=== PATIENT | male | born 1975 | race Caucasian/White ===

== ENCOUNTER 2017-09-20 10:03 | Inpatient (IN) | payer OTHER ==
[2017-09-20 11:00] VITALS: BMI 28.8
--- NOTE | 2017-09-20 13:46 | HP ---
COWS - Scale Resting Pulse: 1= [place] 81-100 Sweatin=Flushed/Facial Moisture Restless Observation: 1= Difficult to Sit Still Pupil Size: 0= Normal to Room Light Bone or Joint Aches: 2= Severe Diffuse Aches Runny Nose/ Eye Tearin= Runny Nose/Eyes GI Upset > 30mins: 2= Nausea/Diarrhea Tremor Observation: 2= Slight Tremor Visible Yawning Observation: 2= >3x During Session Anxiety or Irritability: 2=Irritable/Anxious Goose Flesh Skin: 0=Smooth Skin COWS Score: 16 CIWA Score - CIWA Score Nausea/Vomitin-No Nausea/No Vomiting Muscle Tremors: 4-Moderate,w/Arms Extend Anxiety: 4-Mod. Anxious/Guarded Agitation: 4-Moderately Restless Paroxysmal Sweats: 3 Orientation: 0-Oriented Tacttile Disturbances: 0-None Auditory Disturbances: 0-None Visual Disturbances: 0-None Headache: 0-None Present CIWA-Ar Total Score: 15 Admission ROS S - HPI Chief Complaint: I am here for detox. Allergies/Adverse Reactions: Allergies Allergy/AdvReac Type Severity Reaction Status Date / Time No Known Drug Allergies Allergy Verified 09/20/17 13:28 Fish Allergy Severe Hives Uncoded 09/20/17 13:28 History of Present Illness: pt is a 42yr old male with a history of alcohol and heroin dependence seeking detox for treatment. Exam Limitations: No Limitations - Ebola screening Have you traveled outside of the country in the last 21 days: No Have you had contact with anyone from an Ebola affected area: No Have you been sick,other than usual withdrawal symptoms: No Do you have a fever: No - Review of Systems Constitutional: Chills, Diaphoresis, Loss of Appetite, Night Sweats, Unintentional Wgt. Loss EENT: reports: Tearing, Nose Congestion Respiratory: reports: No Symptoms reported Cardiac: reports: No Symptoms Reported GI: reports: Poor Appetite, Poor Fluid Intake : reports: No Symptoms Reported Musculoskeletal: reports: Back Pain, Joint Pain Integumentary: reports: Flushing, Sweating Neuro: reports: Headache, Tingling, Tremors Endocrine: reports: Excessive Sweating, Flushing, Intolerance to Cold, Intolerance to Heat Hematology: reports: No Symptoms Reported Psychiatric: reports: Judgement Intact, Mood/Affect Appropiate, Orientated x3, Agitated, Anxious Other Systems: Reviewed and Negative Patient History - Patient Medical History Hx Anemia: No Hx Asthma: No Hx Chronic Obstructive Pulmonary Disease (COPD): No Hx Cancer: No Hx Cardiac Disorders: No Hx Congestive Heart Failure: No Hx Hypertension: No Hx Hypercholesterolemia: No Hx Pacemaker: No HX Cerebrovascular Accident: No Hx Seizures: No Hx Diabetes: No Hx Gastrointestinal Disorders: No Hx Liver Disease: No Hx Genitourinary Disorders: No Hx Sexually Transmitted Disorders: No Hx Renal Disease (ESRD): No Hx Thyroid Disease: No Hx Human Immunodeficiency Virus (HIV): No (negative) Hx Hepatitis C: Yes Hx Depression: No Hx Suicide Attempt: No (denies) Hx Bipolar Disorder: No Hx Schizophrenia: No - Patient Surgical History Past Surgical History: No Hx Neurologic Surgery: No Hx Cataract Extraction: No Hx Cardiac Surgery: No Hx Lung Surgery: No Hx Breast Surgery: No Hx Breast Biopsy: No Hx Abdominal Surgery: Yes (LT INGUINAL HERNIA) Hx Appendectomy: No Hx Cholecystectomy: No Hx Genitourinary Surgery: No Hx Section: No Hx Orthopedic Surgery: No Anesthesia Reaction: No - PPD History Previous Implant?: Yes Documented Results: Positive w/o proof PPD to be Administered?: No - Reproductive History Patient is a Female of Child Bearing Age (11 -55 yrs old): No - Smoking Cessation Smoking history: Current every day smoker Have you smoked in the past 12 months: Yes Aproximately how many cigarettes per day: 20 Cigars Per Day: 0 Hx Chewing Tobacco Use: No Initiated information on smoking cessation: Yes 'Breaking Loose' booklet given: 09/20/17 - Substance & Tx. History Hx Alcohol Use: Yes Hx Substance Use: Yes Substance Use Type: Alcohol, Heroin Hx Substance Use Treatment: Yes (last detox [facility]) - Substances Abused Heroin Route: Injection Frequency: Daily Amount used: 5 bags Age of first use: 27 Date of Last Use: 09/20/17 Alcohol-vodka/beer Route: Oral Frequency: Daily Amount used: 1 1/2 pts./5-6 (18 oz.) Age of first use: 16 Date of Last Use: 09/19/17 Family Disease History - Family Disease History Family Disease History: Diabetes: Grandparent, Father Admission Physical Exam [facility] - Vital Signs Vital Signs: Vital Signs - 24 hr 09/20/17 10:58 Temperature 96.8 F L Pulse Rate 84 Respiratory 20 Rate Blood Pressure 131/83 - Physical General Appearance: Yes: Appropriately Dressed, Moderate Distress, Tremorous, Irritable, Sweating, Anxious HEENTM: Yes: Normal Voice, Nasal Congestion, Rhinorrhea Respiratory: Yes: Lungs Clear, Normal Breath Sounds, No Respiratory Distress Neck: Yes: No masses,lesions,Nodules Breast: Yes: Within Normal Limits Cardiology: Yes: Regular Rhythm, Regular Rate, S1, S2 Abdominal: Yes: Normal Bowel Sounds, Non Tender, Soft Genitourinary: Yes: Within Normal Limits Back: Yes: Normal Inspection Musculoskeletal: Yes: full range of Motion, Back pain Extremities: Yes: Normal Capillary Refill, Normal Inspection, Non-Tender, Tremors Neurological: Yes: Fully Oriented, Alert, Normal Response Integumentary: Yes: Normal Color, Track Alcantar Lymphatic: Yes: Within Normal Limits - Diagnostic (1) Cocaine dependence Current Visit: Yes Status: Chronic Qualifiers: Substance use status: uncomplicated Qualified Code(s): F14.20 - Cocaine dependence, uncomplicated; F14.20 - Cocaine dependence, uncomplicated; F14.20 - Cocaine dependence, uncomplicated (2) Hepatitis C Current Visit: Yes Status: Chronic Qualifiers: Viral hepatitis chronicity: chronic Hepatic coma status: without hepatic coma Qualified Code(s): B18.2 - Chronic viral hepatitis C; B18.2 - Chronic viral hepatitis C; B18.2 - Chronic viral hepatitis C; B18.2 - Chronic viral hepatitis C (3) Nicotine dependence Current Visit: Yes Status: Chronic Qualifiers: Nicotine product type: cigarettes Substance use status: uncomplicated Qualified Code(s): F17.210 - Nicotine dependence, cigarettes, uncomplicated; F17.210 - Nicotine dependence, cigarettes, uncomplicated (4) Alcohol dependence with uncomplicated withdrawal Current Visit: Yes Status: Chronic (5) Opioid dependence with withdrawal Current Visit: Yes Status: Chronic Cleared for Admission S - Detox or Rehab [facility] Level of Care: Medically Managed Detox Regimen/Protocol: Methadone/Librium S Breath Alcohol Content Breath Alcohol Content: 0 Urine Drug Screen - Results Drug Screen Negative: No Urine Drug Screen Results: BATOOL-Cocaine, OPI-Opiates, BZO-Benzodiazepines
[2017-09-20] MEDS ORDERED: MAG HYDROX/AL HYDROX/SIMETH 30 ML UNIT-DOSE CUP PO PRN (13:50)
[2017-09-20] MEDS ORDERED: MAGNESIUM CITRATE 300 ML BOTTLE PO PRN (13:50)
[2017-09-20] MEDS ORDERED: P-EPHED 60MG/TRIPROLIDI 2.5MG TABLET PO PRN (13:50)
[2017-09-20] MEDS ORDERED: MENTHOL/PHENOL 1 EACH UD MM PRN (13:50)
[2017-09-20] MEDS ORDERED: guaiFENesin/D-METHORPHAN HB 10 ML UNIT-DOSE CUPS PO PRN (13:50)
[2017-09-20] MEDS ORDERED: NICOTINE POLACRILEX 4 MG GUM BUC PRN (13:50)
[2017-09-20] MEDS ORDERED: MAGNESIUM HYDROX 2400MG/30ML ORAL SUSPENSION 30 ML CUP PO PRN (13:50)
[2017-09-20] MEDS ORDERED: chlordiazePOXIDE HCL 25 MG CAPSULE PO ONE (14:10)
[2017-09-20] MEDS ORDERED: METHADONE HCL 10 MG TABLET (FOR DETOX USE ONLY) PO ONE ×2 (14:11→23:00)
[2017-09-20] MEDS: chlordiazePOXIDE HCL 25 MG CAPSULE PO SCH ×2 (16:55→22:16)
--- NOTE | 2017-09-20 17:25 | EKG ---
Test Reason : Blood Pressure : / mmHG Vent. Rate : 074 BPM Atrial Rate : 074 BPM P-R Int : 152 ms QRS Dur : 090 ms QT Int : 394 ms P-R-T Axes : 045 073 035 degrees QTc Int : 437 ms NORMAL SINUS RHYTHM NORMAL ECG WHEN COMPARED WITH ECG OF 07-MAY-2015 01:00, NO SIGNIFICANT CHANGE WAS FOUND Confirmed by ROMINA FLORES MD ([id number]) on 09/20/2017 5:24:52 PM Referred By: Confirmed By:ROMINA FLORES MD
[2017-09-20] MEDS: chlordiazePOXIDE HCL 25 MG CAPSULE PO PRN (19:34)
[2017-09-20] MEDS: THIAMINE HCL 100 MG TABLET (FP) PO SCH (22:15)
[2017-09-21] MEDS: chlordiazePOXIDE HCL 25 MG CAPSULE PO PRN ×2 (02:14→15:48)
[2017-09-21] MEDS: chlordiazePOXIDE HCL 25 MG CAPSULE PO SCH ×4 (05:21→22:15)
--- NOTE | 2017-09-21 08:35 | PN ---
[facility] CIWA - CIWA Score Nausea/Vomitin-Cont. Nausea/Vomiting Muscle Tremors: 4-Moderate,w/Arms Extend Anxiety: 4-Mod. Anxious/Guarded Agitation: 4-Moderately Restless Paroxysmal Sweats: 3 Orientation: 0-Oriented Tacttile Disturbances: 0-None Auditory Disturbances: 0-None Visual Disturbances: 0-None Headache: 0-None Present CIWA-Ar Total Score: 22 S COWS - Scale Resting Pulse: 1= ID 81-100 Sweatin= Chills/Flushing Restless Observation: 1= Difficult to Sit Still Pupil Size: 1= Pupils >than Normal Bone or Joint Aches: 1= Mild Discomfort Runny Nose/ Eye Tearin= Nasal Congestion GI Upset > 30mins: 2= Nausea/Diarrhea Tremor Observation of Outstretched Hands: 0= None Yawning Observation: 1= 1-2x During Session Anxiety or Irritability: 2=Irritable/Anxious Goose Flesh Skin: 3=Piloerection COWS Score: 14 [facility] Progress Note (SOAP) Subjective: nausea, sweats, interrupted sleep ,a nxiety, trmeors, requesting ensure because of recent 18 pound wt loss Objective: 09/21/17 08:34 Vital Signs - 24 hr 09/20/17 09/20/17 09/20/17 10:58 15:03 17:38 Temperature 96.8 F L 98.2 F 96.5 F L Pulse Rate 84 84 87 Respiratory 20 18 18 Rate Blood Pressure 131/83 111/63 130/66 09/20/17 09/21/17 09/21/17 22:19 00:36 03:39 Temperature 97.1 F L Pulse Rate 91 H Respiratory 18 18 18 Rate Blood Pressure 120/80 09/21/17 06:12 Temperature 96.1 F L Pulse Rate 66 Respiratory 16 Rate Blood Pressure 146/95 labs still pending Assessment: 09/21/17 08:35 withdrawawl sx. recent wt loss Plan: cont detox, prn medications, ensure , fluids, symptomatic relief, encourage ambualtion
[2017-09-21 09:59] LABS: MCH 30.1 pg (25.7-33.7); MCHC 34.2 g/dl (32.0-35.9); MEAN PLT VOLUME 9.8 fl (7.5-11.1); PLATELET COUNT 406 K/MM3 (134-434); WHITE BLOOD COUNT 8.9 K/mm3 (4.0-10.0)
[2017-09-21] MEDS ORDERED: METHADONE HCL 10 MG TABLET (FOR DETOX USE ONLY) PO SCH (10:00)
[2017-09-21 10:06] LABS: ALBUMIN 3.6 g/dl (3.4-5.0); ANION GAP 3 (8-16); CALCIUM 8.4 mg/dL (8.5-10.1); CO2 33 mmol/L (21-32); GLUCOSE,RANDOM 91 mg/dL (74-106); SGOT/AST 29 U/L (15-37); SGPT/ALT 44 U/L (12-78)
[2017-09-21 10:08] LABS: ALK PHOS 74 U/L (45-117); BILIRUBIN,TOTAL 0.6 mg/dL (0.2-1.0); CREATININE 0.8 mg/dL (0.7-1.3); TOT PROT 7.1 g/dl (6.4-8.2)
[2017-09-21] MEDS: PRENATAL VITAMINS W/ FOLIC ACID TABLET (FP) PO SCH (10:41)
[2017-09-21] MEDS: IBUPROFEN 400 MG TABLET (FP) PO PRN (10:44)
[2017-09-21] MEDS: NICOTINE 21 MG/24 HOURS TOPICAL PATCH TD SCH (10:45)
[2017-09-21 11:28] LABS: HIV 1 & 2 AB NEGATIVE; HIV 1 AGp24 NEGATIVE
[2017-09-21] MEDS: THIAMINE HCL 100 MG TABLET (FP) PO SCH (22:15)
[2017-09-21] MEDS: diphenhydrAMINE HCL 50 MG CAPSULE PO PRN (22:16)
[2017-09-22] MEDS: chlordiazePOXIDE HCL 25 MG CAPSULE PO PRN ×2 (00:42→14:25)
[2017-09-22] MEDS: TRIMETHOBENZAMIDE HCL 200MG/2ML INJ IM PRN ×2 (03:48→15:07)
[2017-09-22] MEDS: hydrOXYzine PAMOATE 50 MG CAPSULE (FP) PO PRN (03:52)
[2017-09-22] MEDS: chlordiazePOXIDE HCL 25 MG CAPSULE PO SCH ×2 (05:59→10:27)
[2017-09-22] MEDS: LOPERAMIDE HCL 2 MG CAPSULE PO PRN (07:21)
[2017-09-22] MEDS: PRENATAL VITAMINS W/ FOLIC ACID TABLET (FP) PO SCH (10:27)
[2017-09-22] MEDS: NICOTINE 21 MG/24 HOURS TOPICAL PATCH TD SCH (10:27)
[2017-09-22] MEDS: METHADONE HCL 5 MG TABLET (FOR DETOX USE ONLY) PO SCH (10:27)
--- NOTE | 2017-09-22 13:11 | PN ---
[facility] CIWA - CIWA Score Nausea/Vomitin Muscle Tremors: 3 Anxiety: 4-Mod. Anxious/Guarded Agitation: 1-Slight > Activity Paroxysmal Sweats: 3 Orientation: 0-Oriented Tacttile Disturbances: 2-Mild Itch/Numbness/Burn Auditory Disturbances: 0-None Visual Disturbances: 2-Mild Sensitivity Headache: 0-None Present CIWA-Ar Total Score: 21 S COWS - Scale Resting Pulse: 1= [place] 81-100 Sweatin= Chills/Flushing Restless Observation: 0= Sits Still Pupil Size: 0= Normal to Room Light Bone or Joint Aches: 2= Severe Diffuse Aches Runny Nose/ Eye Tearin= Runny Nose/Eyes GI Upset > 30mins: 3= Vomiting/Diarrhea Tremor Observation of Outstretched Hands: 2= Slight Tremor Visible Yawning Observation: 1= 1-2x During Session Anxiety or Irritability: 2=Irritable/Anxious Goose Flesh Skin: 3=Piloerection COWS Score: 17 S Progress Note (SOAP) Subjective: Anxious, Tremors, Sweating, Diarrhea, Stomach cramping, Vomiting. Objective: PT. A & O X 3. NO ACUTE DISTRESS. 09/22/17 13:07 Vital Signs Temperature 96.1 F L 09/22/17 06:18 Pulse Rate 81 09/22/17 07:49 Respiratory Rate 18 09/22/17 06:18 Blood Pressure 130/82 09/22/17 07:49 O2 Sat by Pulse Oximetry (%) Laboratory Tests 09/21/17 09/21/17 09/21/17 06:00 06:00 06:00 WBC 8.9 RBC 5.03 Hgb 15.2 Hct 44.3 MCV 88.0 MCH 30.1 MCHC 34.2 RDW 14.0 Plt Count 406 D MPV 9.8 D Sodium 139 Potassium 4.7 Chloride 103 Carbon Dioxide 33 H Anion Gap 3 L BUN 11 D Creatinine 0.8 Creat Clearance w eGFR > 60 Random Glucose 91 D Calcium 8.4 L Total Bilirubin 0.6 D AST 29 D ALT 44 D Alkaline Phosphatase 74 Total Protein 7.1 Albumin 3.6 RPR Titer HIV 1&2 Antibody Screen Negative HIV P24 Antigen Negative 09/21/17 06:00 WBC RBC Hgb Hct MCV MCH MCHC RDW Plt Count MPV Sodium Potassium Chloride Carbon Dioxide Anion Gap BUN Creatinine Creat Clearance w eGFR Random Glucose Calcium Total Bilirubin AST ALT Alkaline Phosphatase Total Protein Albumin RPR Titer Nonreactive HIV 1&2 Antibody Screen HIV P24 Antigen LABS NOTED. Assessment: 09/22/17 13:10 WITHDRAWAL SYMPTOMS. Plan: CONTINUED DETOX. PRN TIGAN IM FOR NAUSEA / VOMITING. PRN IMMODIUM FOR DIARRHEA. INCREASE DAILY PO FLUID INTAKE.
[2017-09-22] MEDS: IBUPROFEN 400 MG TABLET (FP) PO PRN (14:26)
[2017-09-22] MEDS ORDERED: cloNIDine HCL 0.1 MG TABLET PO ONE (15:30)
[2017-09-22] MEDS: chlordiazePOXIDE 5 MG CAPSULE PO SCH ×2 (17:56→22:41)
[2017-09-22] MEDS: THIAMINE HCL 100 MG TABLET (FP) PO SCH (22:41)
[2017-09-23] MEDS: IBUPROFEN 400 MG TABLET (FP) PO PRN (00:39)
[2017-09-23] MEDS: chlordiazePOXIDE 5 MG CAPSULE PO SCH ×2 (06:05→10:31)
[2017-09-23] MEDS: METHADONE HCL 5 MG TABLET (FOR DETOX USE ONLY) PO SCH (10:31)
[2017-09-23] MEDS: NICOTINE 21 MG/24 HOURS TOPICAL PATCH TD SCH (10:31)
[2017-09-23] MEDS: PRENATAL VITAMINS W/ FOLIC ACID TABLET (FP) PO SCH (10:31)
[2017-09-23] MEDS: ACETAMINOPHEN 325 MG TABLET (FP) PO PRN (10:33)
[2017-09-23] MEDS: chlordiazePOXIDE HCL 10 MG CAPSULE PO SCH ×2 (17:18→22:21)
--- NOTE | 2017-09-23 17:22 | PN ---
[facility] Progress Note (SOAP) Subjective: Nausea, diarrhea, body ache, tremor, interrupted sleep Objective: 09/23/17 17:21 Last Vital Signs Temp Pulse Resp BP Pulse Ox 97.9 F 85 18 111/76 09/23/17 13:00 09/23/17 13:00 09/23/17 13:00 09/23/17 13:00 Laboratory Tests 09/21/17 09/21/17 09/21/17 06:00 06:00 06:00 WBC 8.9 RBC 5.03 Hgb 15.2 Hct 44.3 MCV 88.0 MCH 30.1 MCHC 34.2 RDW 14.0 Plt Count 406 D MPV 9.8 D Sodium 139 Potassium 4.7 Chloride 103 Carbon Dioxide 33 H Anion Gap 3 L BUN 11 D Creatinine 0.8 Creat Clearance w eGFR > 60 Random Glucose 91 D Calcium 8.4 L Total Bilirubin 0.6 D AST 29 D ALT 44 D Alkaline Phosphatase 74 Total Protein 7.1 Albumin 3.6 RPR Titer HIV 1&2 Antibody Screen Negative HIV P24 Antigen Negative 09/21/17 06:00 WBC RBC Hgb Hct MCV MCH MCHC RDW Plt Count MPV Sodium Potassium Chloride Carbon Dioxide Anion Gap BUN Creatinine Creat Clearance w eGFR Random Glucose Calcium Total Bilirubin AST ALT Alkaline Phosphatase Total Protein Albumin RPR Titer Nonreactive HIV 1&2 Antibody Screen HIV P24 Antigen Labs noted Assessment: 09/23/17 17:21 Withdrawal symptoms Plan: Continue detox
[2017-09-23 17:57] LABS: URINE APPEARANCE SLCLOUDY; URINE BILIRUBIN NEGATIVE (NEGATIVE); URINE BLOOD NEGATIVE (NEGATIVE); URINE COLOR YELLOW; URINE GLUCOSE (UA) NEGATIVE (NEGATIVE); URINE KETONE NEGATIVE (NEGATIVE); URINE NITRITE NEGATIVE (NEGATIVE); URINE PROTEIN NEGATIVE (NEGATIVE); URINE UROBILINOGEN NEGATIVE mg/dL (0.2-1.0)
[2017-09-23 21:19] LABS: URINE LEUK ESTERASE Negative (NEGATIVE)
[2017-09-23] MEDS: hydrOXYzine PAMOATE 50 MG CAPSULE (FP) PO PRN (21:20)
[2017-09-23] MEDS: THIAMINE HCL 100 MG TABLET (FP) PO SCH (22:21)
[2017-09-24] MEDS: hydrOXYzine PAMOATE 50 MG CAPSULE (FP) PO PRN ×2 (02:56→20:14)
[2017-09-24] MEDS: chlordiazePOXIDE HCL 10 MG CAPSULE PO SCH ×2 (05:18→10:30)
[2017-09-24] MEDS: ACETAMINOPHEN 325 MG TABLET (FP) PO PRN (08:32)
[2017-09-24] MEDS: LOPERAMIDE HCL 2 MG CAPSULE PO PRN (08:32)
[2017-09-24] MEDS ORDERED: METHADONE HCL 10 MG TABLET (FOR DETOX USE ONLY) PO SCH (10:00)
[2017-09-24] MEDS: NICOTINE 21 MG/24 HOURS TOPICAL PATCH TD SCH (10:30)
[2017-09-24] MEDS: PRENATAL VITAMINS W/ FOLIC ACID TABLET (FP) PO SCH (10:30)
--- NOTE | 2017-09-24 10:42 | PN ---
[facility] Progress Note (SOAP) Subjective: ANXIETY,DIARRHEA,STOMACH CRAMPS, FATIGUE. Objective: 09/24/17 10:41 Vital Signs Temperature 96.1 F L 09/24/17 09:30 Pulse Rate 95 H 09/24/17 09:30 Respiratory Rate 18 09/24/17 09:30 Blood Pressure 144/90 09/24/17 09:30 O2 Sat by Pulse Oximetry (%) Laboratory Last Values WBC 8.9 K/mm3 (4.0-10.0) 09/21/17 06:00 RBC 5.03 M/mm3 (4.00-5.60) 09/21/17 06:00 Hgb 15.2 GM/dL (11.7-16.9) 09/21/17 06:00 Hct 44.3 % (35.4-49) 09/21/17 06:00 MCV 88.0 fl (80-96) 09/21/17 06:00 MCH 30.1 pg (25.7-33.7) 09/21/17 06:00 MCHC 34.2 g/dl (32.0-35.9) 09/21/17 06:00 RDW 14.0 % (11.9-15.9) 09/21/17 06:00 Plt Count 406 K/MM3 (134-434) D 09/21/17 06:00 MPV 9.8 fl (7.5-11.1) D 09/21/17 06:00 Sodium 139 mmol/L (136-145) 09/21/17 06:00 Potassium 4.7 mmol/L (3.5-5.1) 09/21/17 06:00 Chloride 103 mmol/L (98-107) 09/21/17 06:00 Carbon Dioxide 33 mmol/L (21-32) H 09/21/17 06:00 Anion Gap 3 (8-16) L 09/21/17 06:00 BUN 11 mg/dL (7-18) D 09/21/17 06:00 Creatinine 0.8 mg/dL (0.7-1.3) 09/21/17 06:00 Creat Clearance w eGFR > 60 (>60) 09/21/17 06:00 Random Glucose 91 mg/dL (74-106) D 09/21/17 06:00 Calcium 8.4 mg/dL (8.5-10.1) L 09/21/17 06:00 Total Bilirubin 0.6 mg/dL (0.2-1.0) D 09/21/17 06:00 AST 29 U/L (15-37) D 09/21/17 06:00 ALT 44 U/L (12-78) D 09/21/17 06:00 Alkaline Phosphatase 74 U/L (45-117) 09/21/17 06:00 Total Protein 7.1 g/dl (6.4-8.2) 09/21/17 06:00 Albumin 3.6 g/dl (3.4-5.0) 09/21/17 06:00 Urine Color Yellow 09/23/17 11:38 Urine Appearance Slcloudy 09/23/17 11:38 Urine pH 5.0 (5.0-8.0) 09/23/17 11:38 Ur Specific [place] 1.015 (1.005-1.025) 09/23/17 11:38 Urine Protein Negative (NEGATIVE) 09/23/17 11:38 Urine Glucose (UA) Negative (NEGATIVE) 09/23/17 11:38 Urine Ketones Negative (NEGATIVE) 09/23/17 11:38 Urine Blood Negative (NEGATIVE) 09/23/17 11:38 Urine Nitrite Negative (NEGATIVE) 09/23/17 11:38 Urine Bilirubin Negative (NEGATIVE) 09/23/17 11:38 Urine Urobilinogen Negative mg/dL (0.2-1.0) 09/23/17 11:38 Ur Leukocyte Esterase Negative (NEGATIVE) 09/23/17 11:38 RPR Titer Nonreactive (NONREACTIVE) 09/21/17 06:00 HIV 1&2 Antibody Screen Negative 09/21/17 06:00 HIV P24 Antigen Negative 09/21/17 06:00 Assessment: 09/24/17 10:41 WITHDRAWAL SX Plan: CONTINUE DETOX IMODIUM PRN
[2017-09-24] MEDS: IBUPROFEN 400 MG TABLET (FP) PO PRN (20:14)
[2017-09-24] MEDS: THIAMINE HCL 100 MG TABLET (FP) PO SCH (22:17)
[2017-09-24] MEDS: diphenhydrAMINE HCL 50 MG CAPSULE PO PRN (22:17)
[2017-09-25] MEDS ORDERED: METHADONE HCL 5 MG TABLET (FOR DETOX USE ONLY) PO SCH (06:00)
[2017-09-25 06:37] VITALS: BP 145/78; PULSE 70; TEMP 96.1
--- NOTE | 2017-09-25 12:24 | DS ---
[facility] Detox Discharge Summary Admission Date: 09/20/17 Discharge Date: 09/25/17 - History Present History: Alcohol Dependence, Cocaine Dependence, Opioid Dependence Additional Comments: DETOX COMPLETED. ALERT O X 3. NAD. PT TO FOLLOW UP WITH PCP AT [facility] NEEDED. Pertinent Past History: HEP C - Physical Exam Results Vital Signs: Vital Signs Temperature 96.1 F L 09/25/17 06:37 Pulse Rate 70 09/25/17 06:37 Respiratory Rate 18 09/25/17 06:37 Blood Pressure 145/78 09/25/17 06:37 O2 Sat by Pulse Oximetry (%) Pertinent Admission Physical Exam Findings: WITHDRAWAL SX Laboratory Last Values WBC 8.9 K/mm3 (4.0-10.0) 09/21/17 06:00 RBC 5.03 M/mm3 (4.00-5.60) 09/21/17 06:00 Hgb 15.2 GM/dL (11.7-16.9) 09/21/17 06:00 Hct 44.3 % (35.4-49) 09/21/17 06:00 MCV 88.0 fl (80-96) 09/21/17 06:00 MCH 30.1 pg (25.7-33.7) 09/21/17 06:00 MCHC 34.2 g/dl (32.0-35.9) 09/21/17 06:00 RDW 14.0 % (11.9-15.9) 09/21/17 06:00 Plt Count 406 K/MM3 (134-434) D 09/21/17 06:00 MPV 9.8 fl (7.5-11.1) D 09/21/17 06:00 Sodium 139 mmol/L (136-145) 09/21/17 06:00 Potassium 4.7 mmol/L (3.5-5.1) 09/21/17 06:00 Chloride 103 mmol/L (98-107) 09/21/17 06:00 Carbon Dioxide 33 mmol/L (21-32) H 09/21/17 06:00 Anion Gap 3 (8-16) L 09/21/17 06:00 BUN 11 mg/dL (7-18) D 09/21/17 06:00 Creatinine 0.8 mg/dL (0.7-1.3) 09/21/17 06:00 Creat Clearance w eGFR > 60 (>60) 09/21/17 06:00 Random Glucose 91 mg/dL (74-106) D 09/21/17 06:00 Calcium 8.4 mg/dL (8.5-10.1) L 09/21/17 06:00 Total Bilirubin 0.6 mg/dL (0.2-1.0) D 09/21/17 06:00 AST 29 U/L (15-37) D 09/21/17 06:00 ALT 44 U/L (12-78) D 09/21/17 06:00 Alkaline Phosphatase 74 U/L (45-117) 09/21/17 06:00 Total Protein 7.1 g/dl (6.4-8.2) 09/21/17 06:00 Albumin 3.6 g/dl (3.4-5.0) 09/21/17 06:00 Urine Color Yellow 09/23/17 11:38 Urine Appearance Slcloudy 09/23/17 11:38 Urine pH 5.0 (5.0-8.0) 09/23/17 11:38 Ur Specific [place] 1.015 (1.005-1.025) 09/23/17 11:38 Urine Protein Negative (NEGATIVE) 09/23/17 11:38 Urine Glucose (UA) Negative (NEGATIVE) 09/23/17 11:38 Urine Ketones Negative (NEGATIVE) 09/23/17 11:38 Urine Blood Negative (NEGATIVE) 09/23/17 11:38 Urine Nitrite Negative (NEGATIVE) 09/23/17 11:38 Urine Bilirubin Negative (NEGATIVE) 09/23/17 11:38 Urine Urobilinogen Negative mg/dL (0.2-1.0) 09/23/17 11:38 Ur Leukocyte Esterase Negative (NEGATIVE) 09/23/17 11:38 RPR Titer Nonreactive (NONREACTIVE) 09/21/17 06:00 HIV 1&2 Antibody Screen Negative 09/21/17 06:00 HIV P24 Antigen Negative 09/21/17 06:00 - Treatment Hospital Course: Detox Protocol Followed, Detoxed Safely, Responded well, Discharged Condition Good - Medication Discharge Medications: Ambulatory Orders NK [No Known Home Medication] 09/20/17 - Diagnosis (1) Alcohol dependence with uncomplicated withdrawal Status: Acute (2) Cocaine dependence Status: Acute Qualifiers: Substance use status: uncomplicated Qualified Code(s): F14.20 - Cocaine dependence, uncomplicated; F14.20 - Cocaine dependence, uncomplicated; F14.20 - Cocaine dependence, uncomplicated (3) Hepatitis C Status: Chronic Qualifiers: Viral hepatitis chronicity: chronic Hepatic coma status: without hepatic coma Qualified Code(s): B18.2 - Chronic viral hepatitis C; B18.2 - Chronic viral hepatitis C; B18.2 - Chronic viral hepatitis C; B18.2 - Chronic viral hepatitis C (4) Nicotine dependence Status: Acute Qualifiers: Nicotine product type: cigarettes Substance use status: in withdrawal Qualified Code(s): F17.213 - Nicotine dependence, cigarettes, with withdrawal; F17.213 - Nicotine dependence, cigarettes, with withdrawal (5) Opioid dependence with withdrawal Status: Acute - AMA Did Patient Leave Against Medical Advice: No
== END 2017-09-25 09:25 | disposition home or self-care (01) | DRG 773 ==
LOC: YASAS 10:03 → Y3N 14:06
PROVIDERS: ADMIT Internal Medicine; ATTEND Internal Medicine
PROC: HZ2ZZZZ Detoxification Services for Substance Abuse Treatment (ICD-10-PCS; principal; 2017-09-20)
DX: F11.23 Opioid dependence with withdrawal (principal); F10.230 Alcohol dependence with withdrawal, uncomplicated; F14.20 Cocaine dependence, uncomplicated; F17.213 Nicotine dependence, cigarettes, with withdrawal; B18.2 Chronic viral hepatitis C
CPT/HCPCS: 36415; 71020-TC; 80053; 81003; 85027; 86593; 87389; 93005; 93010

== ENCOUNTER 2017-11-02 21:40 | Inpatient (IN) | payer OTHER ==
[2017-11-02 21:49] VITALS: BMI 27.3
--- NOTE | 2017-11-02 21:49 | PDOC ---
Rapid Medical Evaluation Chief Complaint: Pain Time Seen by Provider: 11/02/17 21:47 Medical Evaluation: Allergies Allergy/AdvReac Type Severity Reaction Status Date / Time fish derived Allergy Severe Hives Verified 09/21/17 15:17 No Known Drug Allergies Allergy Verified 09/20/17 13:28 Fish Allergy Severe Hives Uncoded 09/20/17 13:28 11/02/17 21:48 I have performed a brief in-person evaluation of this patient. The patient presents with a chief complain of:IVDA left hand x3d ago. Noticed hand swelling/pain Took amoxicillin x2d Pt has pinnky ring on/advised to remove it Pertinent physical exam findings:F.R.O.M>left hand with pain Cap refill <2sec I have ordered the following: xray left hand The patient will proceed to the ED for further evaluation.
[2017-11-03] MEDS ORDERED: PIPERACILLIN/TAZOB 4.5 GM/100 ML PRE-DOCKED IVPB ONE (02:15)
--- NOTE | 2017-11-03 02:19 | PDOC ---
History of Present Illness - General Chief Complaint: Pain Stated Complaint: HAND INJURY Time Seen by Provider: 11/02/17 21:47 History Source: Patient Exam Limitations: No Limitations - History of Present Illness Initial Comments: 11/03/17 02:19 42-year-old male with a history of hepatitis C, IVDA who is right hand dominant complaining of swelling/pain and redness to the dorsal aspect of his left hand. Patient states he's been injecting heroin into his left hand. His last injection : 3 days ago. Patient states he noticed swelling and redness approximately 2 hours after injecting heroin to his left hand. Patient denies fever, chills, nausea/vomiting. Pain to the left hand is described as 8/10 sharp nonradiating intermittent discomfort which is exacerbated on movement and touch. The pain is alleviated minimally at rest. Patient denies extremity numbness or tingling sensation. Patient presents with a ring to his left fifth digit which she is adamantly refusing to remove. Patient states he does not want to remove the ring. I explained to the patient that the ring cut off circulation to his left fifth digit due to the swelling of his hand. Patient states he does not care and refuses to have it removed. Past History - Past Medical History Allergies/Adverse Reactions: Allergies Allergy/AdvReac Type Severity Reaction Status Date / Time fish derived Allergy Severe Hives Verified 11/02/17 21:49 No Known Drug Allergies Allergy Verified 11/02/17 21:49 Fish Allergy Severe Hives Uncoded 11/02/17 21:49 Home Medications: Ambulatory Orders NK [No Known Home Medication] 09/20/17 Anemia: No Asthma: No Cancer: No Cardiac Disorders: No CVA: No COPD: No CHF: No Diabetes: No GI Disorders: No Disorders: No HTN: No Hypercholesterolemia: No Kidney Stones: No Liver Disease: No Seizures: No Thyroid Disease: No Other medical history: hep c - Surgical History Abdominal Surgery: Yes (LT INGUINAL HERNIA) Appendectomy: No Cardiac Surgery: No Cholecystectomy: No Lung Surgery: No Neurologic Surgery: No Orthopedic Surgery: No - Reproductive History Testicular Surgery: No - Suicide/Smoking/Psychosocial Hx Smoking Status: Yes Smoking History: Current every day smoker Have you smoked in the past 12 months: Yes Number of Cigarettes Smoked Daily: 20 Cigars Per Day: 0 Information on smoking cessation initiated: No 'Breaking Loose' booklet given: 09/20/17 Hx Alcohol Use: Yes Drug/Substance Use Hx: Yes Substance Use Type: Alcohol, Heroin Hx Substance Use Treatment: Yes (last detox 2014 [facility]) Review of Systems - Review of Systems Able to Perform ROS?: Yes Comments:: 11/03/17 02:23 CONSTITUTIONAL: Absent: fever, chills, diaphoresis, generalized weakness, malaise, loss of appetite HEENT: Absent: rhinorrhea, nasal congestion, throat pain, throat swelling, difficulty swallowing, mouth swelling, ear pain, eye pain, visual Changes CARDIOVASCULAR: Absent: chest pain, loss of consciousness, palpitations, irregular heart rate, peripheral edema RESPIRATORY: Absent: cough, shortness of breath, dyspnea with exertion, orthopnea, wheezing, stridor, hemoptysis GASTROINTESTINAL: Absent: abdominal pain, abdominal distension, nausea, vomiting, diarrhea, constipation, melena, hematochezia GENITOURINARY: Absent: dysuria, frequency, urgency, hesitancy, hematuria, flank pain, genital pain MUSCULOSKELETAL: Absent: myalgia, arthralgia, joint swelling SKIN: Absent: rash, itching, pallor HEMATOLOGIC/IMMUNOLOGIC: Absent: easy bleeding, easy bruising, lymphadenopathy, frequent infections ENDOCRINE: Absent: unexplained weight gain, unexplained weight loss, heat intolerance, cold intolerance NEUROLOGIC: Absent: headache, focal weakness or paresthesias, dizziness, unsteady gait, seizure, mental status changes, bladder or bowel incontinence PSYCHIATRIC: Absent: anxiety, depression, suicidal or homicidal ideation, hallucinations. Is the patient limited Thai proficient: No *Physical Exam - Vital Signs Last Vital Signs Temp Pulse Resp BP Pulse Ox 98 F 101 H 20 144/92 99 11/02/17 21:45 11/02/17 21:45 11/02/17 21:45 11/02/17 21:45 11/02/17 21:45 - Physical Exam Comments: 11/03/17 02:23 GENERAL: Well developed, well nourished. Awake and alert. No acute distress. CARDIOVASCULAR: Regular rate and rhythm. No murmurs, rubs, or gallops. Distal pulses are 2+ and symmetric. PULMONARY: No evidence of respiratory distress. Lungs clear to auscultation bilaterally. No wheezing, rales or rhonchi. ABDOMINAL: Soft. Non-tender. Non-distended. No rebound or guarding. No organomegaly. Normoactive bowel sounds. MUSCULOSKELETAL Normal range of motion at all joints. No bony deformities or tenderness. No CVA tenderness. EXTREMITIES: No cyanosis. No clubbing. No edema. No calf tenderness. SKIN: Warm and dry. Normal capillary refill. No rashes. No jaundice. Left hand +swelling to dorsal hand Pain on palp to 1st/2nd dorsal mc Healed track head to left dorsal 2nd mc region cap refill <2sec 2 point discrimination intact resistance against ED Treatment Course - LABORATORY CBC & Chemistry Diagram: 11/03/17 03:50 11/03/17 03:50 - RADIOLOGY Radiology Studies Ordered: Category Date Time Status HAND- LEFT [RAD] Stat Radiology 11/02/17 21:49 Taken *DC/Admit/Observation/Transfer Diagnosis at time of Disposition: Cellulitis of hand Opioid dependence Qualifiers: Substance use status: with unspecified opioid-induced disorder Qualified Code(s ): F11.29 - Opioid dependence with unspecified opioid-induced disorder - Discharge Dispostion Condition at time of disposition: Stable Admit: Yes - Referrals - Patient Instructions - Post Discharge Activity
--- NOTE | 2017-11-03 02:23 | PDOC ---
*Physical Exam - Vital Signs Last Vital Signs Temp Pulse Resp BP Pulse Ox 98 F 101 H 20 144/92 99 11/02/17 21:45 11/02/17 21:45 11/02/17 21:45 11/02/17 21:45 11/02/17 21:45 - Physical Exam Comments: 11/03/17 02:17 The patient was examined by [IRINA Gallegos] under my direct supervision. I personally evaluated the patient. I concur with the above findings and the plan of care.
[2017-11-03] MEDS ORDERED: KETOROLAC TROMETHAMINE 30 MG/1 ML VIAL IVPUSH ONE (03:59)
[2017-11-03] MEDS ORDERED: KETOROLAC TROMETHAMINE 30 MG/1 ML VIAL ONE (04:00)
[2017-11-03] MEDS ORDERED: PIPERACILLIN/TAZOB 4.5 GM 4.5 GM/100 ML BAG IVPB ONE (04:00)
[2017-11-03 04:06] LABS: BASOPHIL 0.9 % (0-2.0); EOSINOPHIL 2.9 % (0-4.5); MCH 29.3 pg (25.7-33.7); MCHC 33.4 g/dl (32.0-35.9); MEAN CELL VOLUME 87.7 fl (80-96); MEAN PLT VOLUME 8.6 fl (7.5-11.1); NEUTROPHILS 57.6 % (42.8-82.8); PLATELET COUNT 299 K/MM3 (134-434); RDW 13.8 % (11.9-15.9); WHITE BLOOD COUNT 12.4 K/mm3 (4.0-10.0)
[2017-11-03 04:27] LABS: ALBUMIN 3.3 g/dl (3.4-5.0); ALK PHOS 75 U/L (45-117); ANION GAP 8 (8-16); BILIRUBIN,TOTAL 0.4 mg/dL (0.2-1.0); CALCIUM 8.5 mg/dL (8.5-10.1); CO2 29 mmol/L (21-32); CREATININE 0.6 mg/dL (0.7-1.3); GLUCOSE,RANDOM 107 mg/dL (74-106); SGOT/AST 25 U/L (15-37); SGPT/ALT 37 U/L (12-78); TOT PROT 6.7 g/dl (6.4-8.2)
--- NOTE | 2017-11-03 06:45 | HP ---
CHIEF COMPLAINT: PCP: none HISTORY OF PRESENT ILLNESS: 42-year-old male presenting to the ED with complaint of left hand swelling redness and redness for the past 3 days. Patient states that his last use of IV heroin was yesterday afternoon. Pain 8 out of 10 worse with movement. Patient denies any fever, chills ,chest pain, or palpitations. Review of systems: All systems reviewed and negative other than mentioned in history of present illness. ER course was notable for: (1)patient recommended to take off ring (2)vancomycin and Zosyn started (3)blood cultures Recent Travel:none PAST MEDICAL HISTORY:IV drug abuse (heroin), hepatitis C, treatment status unknown PAST SURGICAL HISTORY:inguinal hernia repair Social History: Smoking:pack a day Alcohol:history of alcohol use Drugs: heroin, history of cocaine Family History: Allergies fish derived Allergy (Severe, Verified 11/02/17 21:49) Hives No Known Drug Allergies Allergy (Verified 11/02/17 21:49) Fish Allergy (Severe, Uncoded 11/02/17 21:49) Hives any kind of fish HOME MEDICATIONS: Home Medications Medication Instructions Recorded NK [No Known Home Medication] 09/20/17 REVIEW OF SYSTEMS CONSTITUTIONAL: Absent: fever, chills, diaphoresis, generalized weakness, malaise, loss of appetite, weight change HEENT: Absent: rhinorrhea, nasal congestion, throat pain, throat swelling, difficulty swallowing, mouth swelling, ear pain, eye pain, visual changes CARDIOVASCULAR: Absent: chest pain, syncope, palpitations, irregular heart rate, lightheadedness , peripheral edema RESPIRATORY: Absent: cough, shortness of breath, dyspnea with exertion, orthopnea, wheezing, stridor, hemoptysis GASTROINTESTINAL: Absent: abdominal pain, abdominal distension, nausea, vomiting, diarrhea, constipation, melena, hematochezia GENITOURINARY: Absent: dysuria, frequency, urgency, hesitancy, hematuria, flank pain, genital pain MUSCULOSKELETAL: Absent: myalgia, arthralgia, joint swelling, back pain, neck pain SKIN: Absent: erythema left hand, itching, pallor HEMATOLOGIC/IMMUNOLOGIC: Absent: easy bleeding, easy bruising, lymphadenopathy, frequent infections ENDOCRINE: Absent: unexplained weight gain, unexplained weight loss, heat intolerance, cold intolerance NEUROLOGIC: Absent: headache, focal weakness or paresthesias, dizziness, unsteady gait, seizure, mental status changes, bladder or bowel incontinence PSYCHIATRIC: Absent: anxiety, depression, suicidal or homicidal ideation, hallucinations. PHYSICAL EXAMINATION Vital Signs - 24 hr 11/02/17 21:45 Temperature 98 F Pulse Rate 101 H Respiratory 20 Rate Blood Pressure 144/92 O2 Sat by Pulse 99 Oximetry (%) GENERAL: Awake, alert, and fully oriented, in no acute distress. abusive, and uncooperative, with pain medication seeking behavior HEAD: Normal with no signs of trauma. EYES: Pupils equal, round and reactive to light, extraocular movements intact, sclera anicteric, conjunctiva clear. No lid lag. EARS, NOSE, THROAT: Ears normal, nares patent, oropharynx clear without exudates. Moist mucous membranes. NECK: Normal range of motion, supple without lymphadenopathy, JVD, or masses. LUNGS: Breath sounds equal, clear to auscultation bilaterally. No wheezes, and no crackles. No accessory muscle use. HEART: Regular rate and rhythm, normal S1 and S2 without murmur, rub or gallop. ABDOMEN: Soft, nontender, not distended, normoactive bowel sounds, no guarding, no rebound, no masses. No hepatomegaly or splenomegaly. MUSCULOSKELETAL: Normal range of motion at all joints. No bony deformities or tenderness. No CVA tenderness. UPPER EXTREMITIES: 2+ pulses, warm, well-perfused. No cyanosis. No clubbing. left hand with peripheral edema. LOWER EXTREMITIES: 2+ pulses, warm, well-perfused. No calf tenderness. No peripheral edema. NEUROLOGICAL: Cranial nerves II-XII intact. Normal speech. Normal gait. PSYCHIATRIC: Cooperative. Good eye contact. Appropriate mood and affect. SKIN: Warm, dry, normal turgor, no rashes or lesions noted, normal capillary refill. Laboratory Results - last 24 hr 11/03/17 11/03/17 11/03/17 03:50 03:50 03:50 WBC 12.4 H D RBC 4.64 Hgb 13.6 D Hct 40.7 MCV 87.7 MCH 29.3 MCHC 33.4 RDW 13.8 Plt Count 299 D MPV 8.6 D Neutrophils % 57.6 D Lymphocytes % 29.2 Monocytes % 9.4 Eosinophils % 2.9 Basophils % 0.9 ESR Sodium 138 Potassium 3.9 Chloride 101 Carbon Dioxide 29 Anion Gap 8 BUN 9 Creatinine 0.6 L D Creat Clearance w eGFR > 60 Random Glucose 107 H Calcium 8.5 Total Bilirubin 0.4 D AST 25 ALT 37 Alkaline Phosphatase 75 C-Reactive Protein 1.7 H Total Protein 6.7 Albumin 3.3 L 11/03/17 03:50 WBC RBC Hgb Hct MCV MCH MCHC RDW Plt Count MPV Neutrophils % Lymphocytes % Monocytes % Eosinophils % Basophils % ESR 10 Sodium Potassium Chloride Carbon Dioxide Anion Gap BUN Creatinine Creat Clearance w eGFR Random Glucose Calcium Total Bilirubin AST ALT Alkaline Phosphatase C-Reactive Protein Total Protein Albumin ASSESSMENT/PLAN: left hand cellulitis secondary to injecting heroin Vancomycin and Zosyn ID consult Rehabilitation consult, will start on methadone for Avoid opiates Tylenol 650 mg q6h PRN DVT prophylaxis Problem List - Problem (1) Cellulitis of hand Code(s): L03.119 - CELLULITIS OF UNSPECIFIED PART OF LIMB (2) Opioid dependence Code(s): F11.20 - OPIOID DEPENDENCE, UNCOMPLICATED Qualifiers: Substance use status: with unspecified opioid-induced disorder Qualified Code(s): F11.29 - Opioid dependence with unspecified opioid-induced disorder Visit type - Emergency Visit Emergency Visit: Yes ED Registration Date: 11/03/17 Care time: The patient presented to the Emergency Department on the above date and was hospitalized for further evaluation of their emergent condition. - New Patient This patient is new to me today: Yes Date on this admission: 11/03/17 - Critical Care Critical Care patient: No
[2017-11-03] MEDS ORDERED: ACETAMINOPHEN 325 MG TABLET (FP) PO PRN (06:58)
[2017-11-03] MEDS ORDERED: LORazepam 2 MG/ML SDV VIAL IM PRN (06:58)
--- NOTE | 2017-11-03 09:01 | CONSULT ---
Consult Detox [facility] Reason for Current Admission/Consult: alcohol and heroin detoxification Referred by:: mable estrada MD - History History of Present Illness: 42 yo m w h/o chorini clacoholism and opioi duse idosrder with daily injecting drug use, also sniffs cocaine and smokes cigarettes admitted for iv antibioitcs for hand cellulitis after injecting into his hands. Called over weekend to enter detox protocol which patient has tolerated and is now requesting referral to suboxone program after he completes detox and is discharged. - History Source History Provided By: Patient, Medical Record, Caregiver Limitations to Obtaining History: No Limitations - Alcohol/Substance Use Hx Alcohol Use: Yes (yes) Hx Substance Use: Yes (cocaien andheroin) Hx Substance Use Treatment: Yes ([facility] detox) - Current Drug/Alcohol Use Alcohol Route: Oral Frequency: Daily Amount used: 6 beers Age of first use: 16 Date of Last Use: 11/02/17 Cocaine Route: Inhalation Frequency: 3-6 times per week Amount used: 1 gram Age of first use: 23 Date of Last Use: 10/29/17 Heroin Route: Injection Frequency: Daily Amount used: 6 bags Age of first use: 27 Date of Last Use: 11/02/17 - Significant Medical Findings: 42 yo male lying comfortabely in bed tolerating detox regimen for alcohol and heroin, iv antibiotics for cellulits still some erythema adn swelling bilaterally left> r but imporving pain controlled. COWS - Scale Resting Pulse: 0= [place] 80 or Below Sweatin= No chills or Flushing Restless Observation: 0= Sits Still Pupil Size: 0= Normal to Room Light Bone or Joint Aches: 1= Mild Discomfort Runny Nose/ Eye Tearin= None GI Upset > 30mins: 0= None Tremor Observation: 0= None Yawning Observation: 0= None Anxiety or Irritability: 1=Feels Anxious/Irritable Goose Flesh Skin: 0=Smooth Skin COWS Score: 2 CIWA Score - CIWA Score Nausea/Vomitin-No Nausea/No Vomiting Muscle Tremors: None Anxiety: 1-Mildly Anxious Agitation: 1-Slight > Activity Paroxysmal Sweats: No Perspiration Orientation: 0-Oriented Tacttile Disturbances: 0-None Auditory Disturbances: 0-None Visual Disturbances: 0-None Headache: 0-None Present CIWA-Ar Total Score: 2 Assessment Plan - Diagnosis (1) Alcohol dependence with uncomplicated withdrawal Status: Acute (2) Cellulitis of left hand Status: Acute (3) Opioid dependence with withdrawal Status: Acute (4) Hepatitis C Status: Chronic Qualifiers: Viral hepatitis chronicity: chronic Hepatic coma status: without hepatic coma Qualified Code(s): B18.2 - Chronic viral hepatitis C (5) Cocaine dependence Status: Acute Qualifiers: Substance use status: uncomplicated Qualified Code(s): F14.20 - Cocaine dependence, uncomplicated (6) Drug-induced mood disorder Status: Acute (7) Nicotine dependence Status: Acute Qualifiers: Nicotine product type: cigarettes Substance use status: in withdrawal Qualified Code(s): F17.213 - Nicotine dependence, cigarettes, with withdrawal (8) Substance-induced sleep disorder Status: Acute (9) PPD positive, treated Status: Resolved - Plan Plan: 42 y with opioid use diorder, idu, chronic alcoholism, cocaine and nicotien dependence admitted with bilateral hand cellultis on iv antibiotics and methadoen and valium deotx regiemn which he his tooleratig well. Patient does not want to go to rehab at [facility] but may be open to another facility would like to start suboxone when he leavves. If he can get an appointment at [facility] I will give him a prescription for suboxone until he can make his appointment. Let me know time and date and I will give him the precription when discharged. He does not need to complete his detox to be dicharged when medically stable if he gets a prescription fro suboxone. [id number] Bartolo Cummins MD [phone] - Medication Detox Regimen/Protocol: Methadone/Valium
[2017-11-03] MEDS ORDERED: METHADONE HCL 10 MG TABLET (FOR DETOX USE ONLY) PO ONE (09:03)
[2017-11-03] MEDS ORDERED: diazePAM 5 MG TABLET PO PRN (09:03)
--- NOTE | 2017-11-03 09:04 | PN ---
Physical Exam: SUBJECTIVE: Patient seen and examined Patient is feeling better, but does not want to be bothered, using strong language. OBJECTIVE: Vital Signs Temperature 97.8 F 11/03/17 08:20 Pulse Rate 84 11/03/17 08:20 Respiratory Rate 18 11/03/17 08:20 Blood Pressure 123/87 11/03/17 08:20 O2 Sat by Pulse Oximetry (%) 99 11/03/17 08:48 GENERAL: The patient is awake, alert, and fully oriented, in no acute distress. HEAD: Normal with no signs of trauma. EYES: PERRL, extraocular movements intact, sclera anicteric, conjunctiva clear. ENT: Ears normal, oropharynx clear without exudates, moist mucous membranes. NECK: Trachea midline, full range of motion, supple. LUNGS: Breath sounds equal, clear to auscultation bilaterally, no wheezes, no crackles, no accessory muscle use. HEART: Regular rate and rhythm, S1, S2 without murmur, rub or gallop. ABDOMEN: Soft, nontender, nondistended, normoactive bowel sounds, no guarding, no rebound, no hepatosplenomegaly, no masses. EXTREMITIES: 2+ pulses, warm, well-perfused, cellulitis of left hand with swelling of fingers improving. NEUROLOGICAL: Cranial nerves II through XII grossly intact. Normal speech, gait not observed. PSYCH: Normal mood, normal affect. SKIN: Warm, dry, normal turgor, positive for Tattoos. CBCD WBC 12.4 K/mm3 (4.0-10.0) H D 11/03/17 03:50 RBC 4.64 M/mm3 (4.00-5.60) 11/03/17 03:50 Hgb 13.6 GM/dL (11.7-16.9) D 11/03/17 03:50 Hct 40.7 % (35.4-49) 11/03/17 03:50 MCV 87.7 fl (80-96) 11/03/17 03:50 MCHC 33.4 g/dl (32.0-35.9) 11/03/17 03:50 RDW 13.8 % (11.9-15.9) 11/03/17 03:50 Plt Count 299 K/MM3 (134-434) D 11/03/17 03:50 MPV 8.6 fl (7.5-11.1) D 11/03/17 03:50 CMP Sodium 138 mmol/L (136-145) 11/03/17 03:50 Potassium 3.9 mmol/L (3.5-5.1) 11/03/17 03:50 Chloride 101 mmol/L (98-107) 11/03/17 03:50 Carbon Dioxide 29 mmol/L (21-32) 11/03/17 03:50 Anion Gap 8 (8-16) 11/03/17 03:50 BUN 9 mg/dL (7-18) 11/03/17 03:50 Creatinine 0.6 mg/dL (0.7-1.3) L D 11/03/17 03:50 Creat Clearance w eGFR > 60 (>60) 11/03/17 03:50 Random Glucose 107 mg/dL (74-106) H 11/03/17 03:50 Calcium 8.5 mg/dL (8.5-10.1) 11/03/17 03:50 Total Bilirubin 0.4 mg/dL (0.2-1.0) D 11/03/17 03:50 AST 25 U/L (15-37) 11/03/17 03:50 ALT 37 U/L (12-78) 11/03/17 03:50 Alkaline Phosphatase 75 U/L (45-117) 11/03/17 03:50 Total Protein 6.7 g/dl (6.4-8.2) 11/03/17 03:50 Albumin 3.3 g/dl (3.4-5.0) L 11/03/17 03:50 Active Medications Generic Name Dose Route Start Last Admin Trade Name Freq PRN Reason Stop Dose Admin Acetaminophen 650 mg 11/03/17 06:58 Tylenol - PO Q6H PRN FEVER OR PAIN Vancomycin HCl 1,000 mg/ 250 mls @ 250 mls/hr 11/03/17 10:00 Dextrose IVPB BID YOSELIN Protocol Lorazepam 1 mg 11/03/17 06:58 Ativan Injection - IM Q6H PRN AGITATION Home Medications Medication Instructions Recorded NK [No Known Home Medication] 09/20/17 ASSESSMENT/PLAN: Patient is a 42-year-old male presenting to the ED with complaint of left hand swelling, redness for the past 3 days. Patient states that his last use of IV heroin was yesterday afternoon. # Acute left hand cellulitis secondary to injecting heroin on Vancomycin and Zosyn, ID consult, Tylenol for pain # Heroin dependency will get to see the patient for methadone detox , will avoid opiates DVT prophylaxis: Lovenox 40mg sq Visit type - Emergency Visit Emergency Visit: Yes ED Registration Date: 11/03/17 Care time: The patient presented to the Emergency Department on the above date and was hospitalized for further evaluation of their emergent condition. - New Patient This patient is new to me today: Yes Date on this admission: 11/03/17 - Critical Care Critical Care patient: No - Discharge Referral Referred to [facility] Yes Physician Referral: Jules Conley MD ([facility])
[2017-11-03] MEDS ORDERED: ZOLPIDEM TARTRATE 5 MG TABLET PO PRN (09:07)
[2017-11-03] MEDS ORDERED: ONDANSETRON *ODT* 4 MG TABLET SL PRN (09:09)
[2017-11-03] MEDS ORDERED: diazePAM 5 MG TABLET PO ONE (09:12)
[2017-11-03] MEDS ORDERED: METHADONE HCL 10 MG TABLET (FOR DETOX USE ONLY) PO SCH (10:00)
[2017-11-03] MEDS: cloNIDine HCL 0.1 MG TABLET PO SCH ×2 (10:01→22:07)
[2017-11-03] MEDS: PANTOPRAZOLE 40 MG TABLET (FP) PO SCH (10:01)
[2017-11-03] MEDS: VANCOMYCIN 1,000 MG in DEXTROSE 5%-WATER - 250 ML IVPB SCH ×2 (10:01→22:14)
[2017-11-03] MEDS ORDERED: METHADONE HCL 10 MG TABLET PO ONE ×2 (10:15→23:00)
[2017-11-03] MEDS: PRENATAL VITAMINS W/ FOLIC ACID TABLET (FP) PO SCH (10:37)
[2017-11-03] MEDS: NAPROXEN 500 MG TABLET (FP) PO SCH ×2 (10:37→22:07)
[2017-11-03] MEDS: CYCLOBENZAPRINE HCL 10 MG TABLET (FP) PO SCH ×3 (14:03→22:07)
[2017-11-03] MEDS: diazePAM 5 MG TABLET PO SCH ×4 (14:04→22:08)
--- NOTE | 2017-11-03 14:09 | CON.ID ---
Consult - History of Present Illness History of Present Illness: This is a 42-year-old male with a history of hepatitis C (pt states he was diagnosed in 2005 and received "pills". Can not give further details), GUMARODA presenting with c/o Lt hand erythema/swelling/pain where he has been injecting heroin. He states he noticed this after injecting drugs a few days ago. Pain to the left hand he says is sharp and prevents him from touching/moving hand. He is refusing to remove a ring on his Rt 5th digit. States he was checked for HIV one yr ago and was negative. He does not give permission to repeat HIV, Hepatitis testing because he does not want further blood draws. He denies having fever or chills or any other specific complaints. - History Source History Provided By: Patient - Past Medical History Hepatobiliary: Yes: Hepatitis C - Alcohol/Substance Use Hx Alcohol Use: Yes History of Substance Use: reports: Heroin - Smoking History Smoking history: Current every day smoker Have you smoked in the past 12 months: Yes Aproximately how many cigarettes per day: 20 Home Medications - Allergies Allergies/Adverse Reactions: Allergies Allergy/AdvReac Type Severity Reaction Status Date / Time fish derived Allergy Severe Hives Verified 11/02/17 21:49 No Known Drug Allergies Allergy Verified 11/02/17 21:49 Fish Allergy Severe Hives Uncoded 11/02/17 21:49 - Home Medications Home Medications: Ambulatory Orders NK [No Known Home Medication] 09/20/17 Family Disease History - Family Disease History Family Disease History: Diabetes: Grandparent, Father Review of Systems - Review of Systems Constitutional: reports: No Symptoms HENT: reports: No Symptoms Neck: reports: No Symptoms Cardiovascular: reports: No Symptoms Respiratory: reports: No Symptoms Gastrointestinal: reports: No Symptoms Genitourinary: reports: No Symptoms Musculoskeletal: reports: Other (Lt hand erythema/edema/tenderness) Physical Exam Vital Signs: Vital Signs Temperature 98.1 F 11/03/17 13:37 Pulse Rate 79 11/03/17 13:37 Respiratory Rate 18 11/03/17 13:37 Blood Pressure 120/60 11/03/17 13:37 O2 Sat by Pulse Oximetry (%) 99 11/03/17 08:48 Constitutional: Yes: No Distress Cardiovascular: Yes: Regular Rate and Rhythm Respiratory: Yes: Regular Gastrointestinal: Yes: Normal Bowel Sounds, Soft Renal/: Yes: WNL Extremities: Yes: Other (Lt hand swelling/erythema/warmth and tenderness. Decreased ROM due to pain.) Edema: Yes Edema: LUE: 2+ (hand - fingers to wrist) Labs: CBC, BMP 11/03/17 03:50 11/03/17 03:50 Imaging - Results X-ray: Report Reviewed (soft tissue swelling) Problem List - Problems (1) Cellulitis of hand Code(s): L03.119 - CELLULITIS OF UNSPECIFIED PART OF LIMB (2) Opioid dependence Code(s): F11.20 - OPIOID DEPENDENCE, UNCOMPLICATED Qualifiers: Substance use status: with unspecified opioid-induced disorder Qualified Code(s): F11.29 - Opioid dependence with unspecified opioid-induced disorder (3) Hepatitis C Code(s): B19.20 - UNSPECIFIED VIRAL HEPATITIS C WITHOUT HEPATIC COMA Qualifiers: Viral hepatitis chronicity: chronic Hepatic coma status: without hepatic coma Qualified Code(s): B18.2 - Chronic viral hepatitis C Assessment/Plan 42 y.o. male IVDU presenting with Lt hand swelling, erythema, tenderness with decreased ROM in fingers/wrist due to pain and mild leukocytosis. History of Hepatitis C unclear what treatment he has gotten in the past - cont. Vancomycin for now, f/u blood cultures - monitor for improvement of symptoms, if none suggest MRI - refusing HIV/Hepatitis testing because he does not want further blood draws - if pt becomes agreeable with drawing blood please repeat cbc, HIV, Hepatitis serologies will f/u Thank you
[2017-11-03] MEDS ORDERED: PT OWN MED DRAWER 7, Y5N ONE ×2 (18:45→22:04)
[2017-11-03] MEDS: THIAMINE HCL 100 MG TABLET (FP) PO SCH (22:07)
[2017-11-04] MEDS: CYCLOBENZAPRINE HCL 10 MG TABLET (FP) PO SCH ×3 (07:00→22:07)
[2017-11-04] MEDS: diazePAM 5 MG TABLET PO SCH ×4 (07:00→23:41)
[2017-11-04] MEDS: PANTOPRAZOLE 40 MG TABLET (FP) PO SCH (09:26)
[2017-11-04] MEDS: PRENATAL VITAMINS W/ FOLIC ACID TABLET (FP) PO SCH (09:26)
[2017-11-04] MEDS: cloNIDine HCL 0.1 MG TABLET PO SCH ×2 (09:26→22:07)
[2017-11-04] MEDS: NAPROXEN 500 MG TABLET (FP) PO SCH ×2 (09:27→22:06)
[2017-11-04] MEDS: VANCOMYCIN 1,000 MG in DEXTROSE 5%-WATER - 250 ML IVPB SCH ×2 (09:35→22:06)
[2017-11-04] MEDS ORDERED: METHADONE HCL 10 MG TABLET PO ONE (10:00)
--- NOTE | 2017-11-04 10:40 | PN ---
Progress Note (short form) - Note Progress Note: Patient's hand feels better, able to make a feast, but unable to bend his left thumb. Vital Signs Temperature 97.7 F 11/04/17 09:36 Pulse Rate 68 11/04/17 09:36 Respiratory Rate 18 11/04/17 09:36 Blood Pressure 134/81 11/04/17 09:36 O2 Sat by Pulse Oximetry (%) 98 11/03/17 21:00 GENERAL: The patient is awake, alert, and fully oriented, in no acute distress. HEAD: Normal with no signs of trauma. EYES: PERRL, extraocular movements intact, sclera anicteric, conjunctiva clear. ENT: Ears normal, oropharynx clear without exudates, moist mucous membranes. NECK: Trachea midline, full range of motion, supple. LUNGS: Breath sounds equal, clear to auscultation bilaterally, no wheezes, no crackles, no accessory muscle use. HEART: Regular rate and rhythm, S1, S2 without murmur, rub or gallop. ABDOMEN: Soft, nontender, nondistended, normoactive bowel sounds, no guarding, no rebound, no hepatosplenomegaly, no masses. EXTREMITIES: 2+ pulses, warm, well-perfused, cellulitis of left hand with swelling of fingers improving. Unable to bend left thumb. NEUROLOGICAL: Cranial nerves II through XII grossly intact. Normal speech, gait not observed. PSYCH: Normal mood, normal affect. SKIN: Warm, dry, normal turgor, positive for Tattoos. CBCD WBC 12.4 K/mm3 (4.0-10.0) H D 11/03/17 03:50 RBC 4.64 M/mm3 (4.00-5.60) 11/03/17 03:50 Hgb 13.6 GM/dL (11.7-16.9) D 11/03/17 03:50 Hct 40.7 % (35.4-49) 11/03/17 03:50 MCV 87.7 fl (80-96) 11/03/17 03:50 MCHC 33.4 g/dl (32.0-35.9) 11/03/17 03:50 RDW 13.8 % (11.9-15.9) 11/03/17 03:50 Plt Count 299 K/MM3 (134-434) D 11/03/17 03:50 MPV 8.6 fl (7.5-11.1) D 11/03/17 03:50 CMP Sodium 138 mmol/L (136-145) 11/03/17 03:50 Potassium 3.9 mmol/L (3.5-5.1) 11/03/17 03:50 Chloride 101 mmol/L (98-107) 11/03/17 03:50 Carbon Dioxide 29 mmol/L (21-32) 11/03/17 03:50 Anion Gap 8 (8-16) 11/03/17 03:50 BUN 9 mg/dL (7-18) 11/03/17 03:50 Creatinine 0.6 mg/dL (0.7-1.3) L D 11/03/17 03:50 Creat Clearance w eGFR > 60 (>60) 11/03/17 03:50 Random Glucose 107 mg/dL (74-106) H 11/03/17 03:50 Calcium 8.5 mg/dL (8.5-10.1) 11/03/17 03:50 Total Bilirubin 0.4 mg/dL (0.2-1.0) D 11/03/17 03:50 AST 25 U/L (15-37) 11/03/17 03:50 ALT 37 U/L (12-78) 11/03/17 03:50 Alkaline Phosphatase 75 U/L (45-117) 11/03/17 03:50 Total Protein 6.7 g/dl (6.4-8.2) 11/03/17 03:50 Albumin 3.3 g/dl (3.4-5.0) L 11/03/17 03:50 Home Medication List Medication Instructions Recorded Confirmed Type NK [No Known Home Medication] 09/20/17 09/20/17 History Active Medications Generic Name Dose Route Start Last Admin Trade Name Freq PRN Reason Stop Dose Admin Acetaminophen 650 mg 11/03/17 06:58 Tylenol - PO Q6H PRN FEVER OR PAIN Clonidine 0.1 mg 11/03/17 10:00 11/04/17 09:26 Catapres - PO 0.1 mg BID YOSELIN Administration Cyclobenzaprine HCl 10 mg 11/03/17 14:00 11/04/17 07:00 Flexeril - PO 10 mg TID YOSELIN Administration Diazepam 10 mg 11/03/17 09:03 Valium - PO 11/06/17 09:02 Q4H PRN WITHDRAWAL(CONT SUBST) Diazepam 10 mg 11/03/17 22:00 11/03/17 22:08 Valium - PO 10 mg HS YOSELIN Administration Diazepam 5 mg 11/03/17 14:00 11/04/17 07:00 Valium - PO 11/04/17 22:01 5 mg TID YOSELIN Administration Diazepam 5 mg 11/05/17 10:00 Valium - PO 11/06/17 22:01 BID YOSELIN Diazepam 5 mg 11/07/17 10:00 Valium - PO 11/07/17 10:01 DAILY YOSELIN Vancomycin HCl 1,000 mg/ 250 mls @ 250 mls/hr 11/03/17 10:00 11/04/17 09:35 Dextrose IVPB 250 mls/hr BID YOSELIN Administration Protocol Methadone HCl 15 mg 11/05/17 10:00 Dolophine - PO 11/05/17 23:59 ONCE ONE Methadone HCl 5 mg 11/08/17 06:00 Dolophine - PO 11/08/17 23:59 ONCE@0600 ONE Methadone HCl 15 mg 11/06/17 10:00 Dolophine - PO 11/06/17 23:59 ONCE ONE Methadone HCl 10 mg 11/07/17 10:00 Dolophine - PO 11/07/17 10:01 ONCE ONE Naproxen 500 mg 11/03/17 10:00 11/04/17 09:27 Naprosyn - PO 500 mg BID YOSELIN Administration Ondansetron HCl 8 mg 11/03/17 09:09 Zofran Odt - SL Q6H PRN NAUSEA AND/OR VOMITING Pantoprazole Sodium 40 mg 11/03/17 10:00 11/04/17 09:26 Protonix - PO 40 mg DAILY YOSELIN Administration Multivit/Folic Acid/Iron 1 tab 11/03/17 10:00 11/04/17 09:26 Vitamins (Sjr) - PO 1 tab DAILY YOSELIN Administration Thiamine HCl 100 mg 11/03/17 22:00 11/03/17 22:07 Vitamin B1 - PO 100 mg HS YOSELIN Administration Zolpidem Tartrate 10 mg 11/03/17 09:07 Ambien - PO HS PRN INSOMNIA ASSESSMENT/PLAN: Patient is a 42-year-old male presenting to the ED with complaint of left hand swelling, redness for the past 3 days. Patient states that his last use of IV heroin was yesterday afternoon. # Acute left hand cellulitis secondary to injecting heroin on Vancomycin 1000mg q12h, Naprosyn 500mg Bid was ordered for inflammation by . # Heroin dependency , on Heroin detox protocol as per , avoid opiates. also added valium, flexeril, catapres, ambien by . DVT prophylaxis: Lovenox 40mg sq Visit type - Emergency Visit Emergency Visit: Yes ED Registration Date: 11/03/17 Care time: The patient presented to the Emergency Department on the above date and was hospitalized for further evaluation of their emergent condition. - New Patient This patient is new to me today: No - Critical Care Critical Care patient: No
--- NOTE | 2017-11-04 11:52 | PN ---
Physical Exam: SUBJECTIVE: Patient seen and examined by me this AM - Pt aggressive, reticent during interview. Hostile, complaining about lack of pain medication. Clear drug seeking behavior - L hand appears improved, less erythema/calor than previously reported OBJECTIVE: Vital Signs Intake & Output 11/01/17 11/02/17 11/03/17 11/04/17 23:59 23:59 23:59 23:59 Intake Total 940 240 Output Total 0 Balance 940 240 Weight 79.379 kg Period Temp Pulse Resp BP Sys/Rao Pulse Ox Last 24 Hr 97.7 F-98.1 F 67-79 18-18 120-150/60-96 98 Limited physical exam, as pt noncompliant. Refusing many portions of exam GENERAL: laying in bed, aggressive HEAD: Normal with no signs of trauma. EYES: sclera anicteric, conjunctiva clear. No ptosis. ENT: Ears normal, nares patent NECK: Trachea midline. No JVD noted HEART: Regular rate and rhythm, S1, S2 without murmur, rub or gallop. Upper EXTREMITIES: warm, well-perfused, no edema. NEUROLOGICAL: Cranial nerves II through XII grossly intact. Normal speech, gait not observed. PSYCH: Hostile SKIN: Focal erythematous patch on lateral dorsal aspect of L hand, near thumb CBC, BMP 11/03/17 03:50 11/03/17 03:50 Active Medications Generic Name Dose Route Start Last Admin Trade Name Freq PRN Reason Stop Dose Admin Clonidine 0.1 mg 11/03/17 10:00 11/04/17 09:26 Catapres - PO 0.1 mg BID YOSELIN Administration Cyclobenzaprine HCl 10 mg 11/03/17 14:00 11/04/17 07:00 Flexeril - PO 10 mg TID YOSELIN Administration Diazepam 10 mg 11/03/17 09:03 Valium - PO 11/06/17 09:02 Q4H PRN WITHDRAWAL(CONT SUBST) Diazepam 10 mg 11/03/17 22:00 11/03/17 22:08 Valium - PO 10 mg HS YOSELIN Administration Diazepam 5 mg 11/03/17 14:00 11/04/17 07:00 Valium - PO 11/04/17 22:01 5 mg TID YOSELIN Administration Diazepam 5 mg 11/05/17 10:00 Valium - PO 11/06/17 22:01 BID YOSELIN Diazepam 5 mg 11/07/17 10:00 Valium - PO 11/07/17 10:01 DAILY YOSELIN Enoxaparin Sodium 40 mg 11/05/17 10:00 Lovenox - SQ DAILY [facility] Vancomycin HCl 1,000 mg/ 250 mls @ 250 mls/hr 11/03/17 10:00 11/04/17 09:35 Dextrose IVPB 250 mls/hr BID YOSELIN Administration Protocol Methadone HCl 15 mg 11/05/17 10:00 Dolophine - PO 11/05/17 23:59 ONCE ONE Methadone HCl 5 mg 11/08/17 06:00 Dolophine - PO 11/08/17 23:59 ONCE@0600 ONE Methadone HCl 15 mg 11/06/17 10:00 Dolophine - PO 11/06/17 23:59 ONCE ONE Methadone HCl 10 mg 11/07/17 10:00 Dolophine - PO 11/07/17 10:01 ONCE ONE Naproxen 500 mg 11/03/17 10:00 11/04/17 09:27 Naprosyn - PO 500 mg BID YOSELIN Administration Ondansetron HCl 8 mg 11/03/17 09:09 Zofran Odt - SL Q6H PRN NAUSEA AND/OR VOMITING Pantoprazole Sodium 40 mg 11/03/17 10:00 11/04/17 09:26 Protonix - PO 40 mg DAILY YOSELIN Administration Multivit/Folic Acid/Iron 1 tab 11/03/17 10:00 11/04/17 09:26 Vitamins (Sjr) - PO 1 tab DAILY YOSELIN Administration Thiamine HCl 100 mg 11/03/17 22:00 11/03/17 22:07 Vitamin B1 - PO 100 mg HS YOSELIN Administration Zolpidem Tartrate 10 mg 11/03/17 09:07 Ambien - PO HS PRN INSOMNIA Microbiology 11/03/17 03:50 Blood - Peripheral Venous Blood Culture - Preliminary NO GROWTH OBTAINED AFTER 24 HOURS, INCUBATION TO CONTINUE FOR 4 DAYS. 11/03/17 03:50 Blood - Peripheral Venous Blood Culture - Preliminary NO GROWTH OBTAINED AFTER 24 HOURS, INCUBATION TO CONTINUE FOR 4 DAYS. imaging: L Hand XR 11/04 - Soft tissue swelling around thumb. Ring on 5th digit noted ASSESSMENT/PLAN: 42 yo man w/ pmh of Hep C, polysubstance abuse (tobacco, alcohol, heroin, cocaine) who presents with cellulitis of L hand at injection site of past 3 days # L hand cellulitis - WBC uptrending 8.9 -> 12.4, afebrile. XR with local soft tissue swelling. Ring removed - ID following. Recs appreciated. - f/u cultures - Trend WBC, fever - Continue Vanc per ID - LUE Duplex u/s to r/o dvt - Naproxen 500mg PO BID #HTN - Clonidine 0.1 mg PO BID - Monitor BPs #PSA - On methadone detox. Pt with drug seeking behavior. Has eloped in past ( 2014) - Refusing HIV/Hep C testing. States HIV test neg one year ago - Flexeril 10mg TID for lower back pain - avoid all opiates - Detox consult. Recs appreciated. #alcohol dependence - monitor for withdrawal symptoms - Thiamine 100mg HS - Zofran SL 8mg q6h - Valium for withdrawal - F/u utox #Insomnia - Ambien 10mg PO HS FEN Fluids: PO hydration Electrolytes: Daily BMPs Nutrition: regular diet PPX Lovenox 40 mg SQ protonix 40mg PO Plan discussed with attending, Dr. Hayder Glaser, PGY1 Visit type - Emergency Visit Emergency Visit: Yes ED Registration Date: 11/03/17 Care time: The patient presented to the Emergency Department on the above date and was hospitalized for further evaluation of their emergent condition. - New Patient This patient is new to me today: Yes Date on this admission: 11/04/17 - Critical Care Critical Care patient: No
[2017-11-04] MEDS: THIAMINE HCL 100 MG TABLET (FP) PO SCH (22:07)
[2017-11-05] MEDS: CYCLOBENZAPRINE HCL 10 MG TABLET (FP) PO SCH ×2 (06:08→14:22)
[2017-11-05 08:08] LABS: EOSINOPHIL 3.6 % (0-4.5); MCH 29.3 pg (25.7-33.7); MCHC 33.3 g/dl (32.0-35.9); MEAN CELL VOLUME 87.8 fl (80-96); MEAN PLT VOLUME 8.2 fl (7.5-11.1); NEUTROPHILS 59.1 % (42.8-82.8); PLATELET COUNT 366 K/MM3 (134-434); RDW 13.8 % (11.9-15.9); WHITE BLOOD COUNT 7.5 K/mm3 (4.0-10.0)
[2017-11-05 08:35] LABS: ANION GAP 6 (8-16); CO2 29 mmol/L (21-32); CREATININE 0.8 mg/dL (0.7-1.3); GLUCOSE,RANDOM 105 mg/dL (74-106)
--- NOTE | 2017-11-05 08:52 | PN ---
Teaching Attending Note Name of Resident: Matt Glaser ATTENDING PHYSICIAN STATEMENT I saw and evaluated the patient. I reviewed the resident's note and discussed the case with the resident. I agree with the resident's findings and plan as documented. SUBJECTIVE: Patient hand is better, improved tremendously. No fever or chills, no shortness of breath. OBJECTIVE: Vital Signs Temperature 97.5 F L 11/05/17 08:49 Pulse Rate 69 11/05/17 08:49 Respiratory Rate 18 11/05/17 08:49 Blood Pressure 144/79 11/05/17 08:49 O2 Sat by Pulse Oximetry (%) 95 11/04/17 21:00 CBCD WBC 7.5 K/mm3 (4.0-10.0) D 11/05/17 07:58 RBC 5.25 M/mm3 (4.00-5.60) 11/05/17 07:58 Hgb 15.4 GM/dL (11.7-16.9) D 11/05/17 07:58 Hct 46.1 % (35.4-49) 11/05/17 07:58 MCV 87.8 fl (80-96) 11/05/17 07:58 MCHC 33.3 g/dl (32.0-35.9) 11/05/17 07:58 RDW 13.8 % (11.9-15.9) 11/05/17 07:58 Plt Count 366 K/MM3 (134-434) D 11/05/17 07:58 MPV 8.2 fl (7.5-11.1) 11/05/17 07:58 CMP Sodium 139 mmol/L (136-145) 11/05/17 07:58 Potassium 5.1 mmol/L (3.5-5.1) D 11/05/17 07:58 Chloride 104 mmol/L (98-107) 11/05/17 07:58 Carbon Dioxide 29 mmol/L (21-32) 11/05/17 07:58 Anion Gap 6 (8-16) L 11/05/17 07:58 BUN 13 mg/dL (7-18) D 11/05/17 07:58 Creatinine 0.8 mg/dL (0.7-1.3) D 11/05/17 07:58 Creat Clearance w eGFR > 60 (>60) 11/03/17 03:50 Random Glucose 105 mg/dL (74-106) 11/05/17 07:58 Calcium 9.0 mg/dL (8.5-10.1) 11/05/17 07:58 Total Bilirubin 0.4 mg/dL (0.2-1.0) D 11/03/17 03:50 AST 25 U/L (15-37) 11/03/17 03:50 ALT 37 U/L (12-78) 11/03/17 03:50 Alkaline Phosphatase 75 U/L (45-117) 11/03/17 03:50 Total Protein 6.7 g/dl (6.4-8.2) 11/03/17 03:50 Albumin 3.3 g/dl (3.4-5.0) L 11/03/17 03:50 Home Medication List Medication Instructions Recorded Confirmed Type NK [No Known Home Medication] 09/20/17 09/20/17 History Active Medications Generic Name Dose Route Start Last Admin Trade Name Shad PRN Reason Stop Dose Admin Clonidine 0.1 mg 11/03/17 10:00 11/04/17 22:07 Catapres - PO 0.1 mg BID YOSELIN Administration Cyclobenzaprine HCl 10 mg 11/03/17 14:00 11/05/17 06:08 Flexeril - PO Not Given TID YOSELIN Diazepam 10 mg 11/03/17 09:03 Valium - PO 11/06/17 09:02 Q4H PRN WITHDRAWAL(CONT SUBST) Diazepam 10 mg 11/03/17 22:00 11/04/17 23:41 Valium - PO Not Given HS YOSELIN Diazepam 5 mg 11/05/17 10:00 Valium - PO 11/06/17 22:01 BID YOSELIN Diazepam 5 mg 11/07/17 10:00 Valium - PO 11/07/17 10:01 DAILY [facility] Enoxaparin Sodium 40 mg 11/05/17 10:00 Lovenox - SQ DAILY [facility] Vancomycin HCl 1,000 mg/ 250 mls @ 250 mls/hr 11/03/17 10:00 11/04/17 22:06 Dextrose IVPB 250 mls/hr BID YOSELIN Administration Protocol Methadone HCl 15 mg 11/05/17 10:00 Dolophine - PO 11/05/17 23:59 ONCE ONE Methadone HCl 5 mg 11/08/17 06:00 Dolophine - PO 11/08/17 23:59 ONCE@0600 ONE Methadone HCl 15 mg 11/06/17 10:00 Dolophine - PO 11/06/17 23:59 ONCE ONE Methadone HCl 10 mg 11/07/17 10:00 Dolophine - PO 11/07/17 10:01 ONCE ONE Naproxen 500 mg 11/03/17 10:00 11/04/17 22:06 Naprosyn - PO 500 mg BID YOSELIN Administration Ondansetron HCl 8 mg 11/03/17 09:09 Zofran Odt - SL Q6H PRN NAUSEA AND/OR VOMITING Pantoprazole Sodium 40 mg 11/03/17 10:00 11/04/17 09:26 Protonix - PO 40 mg DAILY YOSELIN Administration Multivit/Folic Acid/Iron 1 tab 11/03/17 10:00 11/04/17 09:26 Vitamins (Sjr) - PO 1 tab DAILY YOSELIN Administration Thiamine HCl 100 mg 11/03/17 22:00 11/04/17 22:07 Vitamin B1 - PO 100 mg HS YOSELIN Administration Zolpidem Tartrate 10 mg 11/03/17 09:07 Ambien - PO HS PRN INSOMNIA PE: Left thumb able to bend more, swelling is reduced , mild erythema on the left thumb area, able to bend all his fingers, with decreased swelling of fingers of the left hand. Cardiac: S1S2 positive, no murmur appreciated. rest of PE per resident's note. ASSESSMENT AND PLAN: Patient is a 42-year-old male presenting to the ED with complaint of left hand swelling, redness for the past 3 days. Patient states that his last use of IV heroin was yesterday afternoon. # Acute left hand cellulitis secondary to injecting heroin s/p last dose of Vancomycin 1000mg , Naprosyn 500mg Bid was ordered for inflammation by . patient is being discharged home with doxycyline 100mg po bid and augmentin 875mg po bid x 7 days.Discussed with ID, bertrand to discharge the patient. # Heroin dependency , prescribed Suboxone by Dr. Araiza, has an appointment with Detox center in a wek period. Discharge the patient home.
[2017-11-05] MEDS: VANCOMYCIN 1,000 MG in DEXTROSE 5%-WATER - 250 ML IVPB SCH (09:53)
[2017-11-05] MEDS: cloNIDine HCL 0.1 MG TABLET PO SCH (09:54)
[2017-11-05] MEDS: PRENATAL VITAMINS W/ FOLIC ACID TABLET (FP) PO SCH (09:54)
[2017-11-05] MEDS: NAPROXEN 500 MG TABLET (FP) PO SCH (09:54)
[2017-11-05] MEDS: PANTOPRAZOLE 40 MG TABLET (FP) PO SCH (09:54)
[2017-11-05] MEDS ORDERED: ENOXAPARIN NA (PORCINE) 40 MG/0.4 ML DISP.SYRIN SQ SCH (10:00)
[2017-11-05] MEDS ORDERED: METHADONE HCL 5 MG TABLET PO ONE ×2 (10:00→10:15)
[2017-11-05] MEDS ORDERED: diazePAM 5 MG TABLET PO SCH (10:00)
--- NOTE | 2017-11-05 11:17 | PN ---
Physical Exam: SUBJECTIVE: Patient seen and examined by me this AM - More agreeable today, less hostile. Initially refusing AM labs, now compliant. States he feels better, endorses improvement in pain/swelling in his hand. States he can move his thumb slightly better today. - Denies any other symptoms or complaints. No longer complaining about pain control. Wants to go home tomorrow. Still receiving vancomycin. - Has not been seen by ID today. Will f/u on their recommendations. - Will offer inpt detox services on discharge. OBJECTIVE: Vital Signs Intake & Output 11/02/17 11/03/17 11/04/17 11/05/17 23:59 23:59 23:59 23:59 Intake Total 940 1280 200 Output Total 0 Balance 940 1280 200 Weight 79.379 kg Period Temp Pulse Resp BP Sys/Rao Pulse Ox Last 24 Hr 97.5 F-97.8 F 65-72 18-18 98-144/57-79 95 GENERAL: laying in bed, more pleasant today HEAD: Normal with no signs of trauma. No alopecia noted. EYES: sclera anicteric, conjunctiva clear. No ptosis. ENT: Ears normal, nares patent NECK: Trachea midline. No JVD noted. Supple. HEART: Regular rate and rhythm, S1, S2 without murmur, rub or gallop. Lungs: CTABL Upper EXTREMITIES: warm, well-perfused, no edema. Lower extremities: wwp, no edema. NEUROLOGICAL: Cranial nerves II through XII grossly intact. Normal speech, gait not observed. PSYCH: More pleasant affect, less hostile SKIN: Focal erythematous patch on lateral dorsal aspect of L hand, near thumb. Still with periarticular edema, no change in erythema. Not hot to touch. Laboratory Results - last 24 hr CBC, BMP 11/05/17 07:58 11/05/17 07:58 11/05/17 11/05/17 07:58 07:58 WBC 7.5 D RBC 5.25 Hgb 15.4 D Hct 46.1 MCV 87.8 MCH 29.3 MCHC 33.3 RDW 13.8 Plt Count 366 D MPV 8.2 Neutrophils % 59.1 Lymphocytes % 29.6 Monocytes % 6.7 Eosinophils % 3.6 Basophils % 1.0 Sodium 139 Potassium 5.1 D Chloride 104 Carbon Dioxide 29 Anion Gap 6 L BUN 13 D Creatinine 0.8 D Random Glucose 105 Calcium 9.0 Active Medications Generic Name Dose Route Start Last Admin Trade Name Freq PRN Reason Stop Dose Admin Clonidine 0.1 mg 11/03/17 10:00 11/05/17 09:54 Catapres - PO 0.1 mg BID YOSELIN Administration Cyclobenzaprine HCl 10 mg 11/03/17 14:00 11/05/17 06:08 Flexeril - PO Not Given TID YOSELIN Diazepam 10 mg 11/03/17 09:03 Valium - PO 11/06/17 09:02 Q4H PRN WITHDRAWAL(CONT SUBST) Diazepam 10 mg 11/03/17 22:00 11/04/17 23:41 Valium - PO Not Given HS YOSELIN Diazepam 5 mg 11/05/17 10:00 11/05/17 09:55 Valium - PO 11/06/17 22:01 5 mg BID YOSELIN Administration Diazepam 5 mg 11/07/17 10:00 Valium - PO 11/07/17 10:01 DAILY [facility] Enoxaparin Sodium 40 mg 11/05/17 10:00 11/05/17 10:02 Lovenox - SQ Not Given DAILY YOSELIN Vancomycin HCl 1,000 mg/ 250 mls @ 250 mls/hr 11/03/17 10:00 11/05/17 09:53 Dextrose IVPB 250 mls/hr BID YOSELIN Administration Protocol Methadone HCl 10 mg 11/07/17 10:00 Dolophine - PO 11/07/17 10:01 ONCE ONE Methadone HCl 15 mg 11/06/17 10:00 Dolophine - PO 11/06/17 10:01 ONCE ONE Naproxen 500 mg 11/03/17 10:00 11/05/17 09:54 Naprosyn - PO 500 mg BID YOSELIN Administration Ondansetron HCl 8 mg 11/03/17 09:09 Zofran Odt - SL Q6H PRN NAUSEA AND/OR VOMITING Pantoprazole Sodium 40 mg 11/03/17 10:00 11/05/17 09:54 Protonix - PO 40 mg DAILY YOSELIN Administration Multivit/Folic Acid/Iron 1 tab 11/03/17 10:00 11/05/17 09:54 Vitamins (Sjr) - PO 1 tab DAILY YOSELIN Administration Thiamine HCl 100 mg 11/03/17 22:00 11/04/17 22:07 Vitamin B1 - PO 100 mg HS YOSELIN Administration Zolpidem Tartrate 10 mg 11/03/17 09:07 Ambien - PO HS PRN INSOMNIA Microbiology 11/03/17 03:50 Blood - Peripheral Venous Blood Culture - Preliminary NO GROWTH OBTAINED AFTER 48 HOURS, INCUBATION TO CONTINUE FOR 3 DAYS. 11/03/17 03:50 Blood - Peripheral Venous Blood Culture - Preliminary NO GROWTH OBTAINED AFTER 48 HOURS, INCUBATION TO CONTINUE FOR 3 DAYS. Imaging: L Hand XR 11/04 - Soft tissue swelling around thumb. Ring on 5th digit noted ASSESSMENT/PLAN: 42 yo man w/ pmh of Hep C, polysubstance abuse (tobacco, alcohol, heroin, cocaine) who presents with cellulitis of L hand at injection site of past 3 days. Pt improving, normal WBC, decreased pain/erythema in hand. No withdrawal symptoms noted. Still poor compliant with staff. # L hand cellulitis - WBC downtrending 12.4 -> 7.5, afebrile. XR with local soft tissue swelling. Ring removed - ID following. Recs appreciated. - Blood cultures w/ no growth x3 days - Trend WBC, fever - Continue Vanc per ID - Naproxen 500mg PO BID for pain control #HTN - Clonidine 0.1 mg PO BID - Monitor BPs. Up to 140s systolic today #PSA - On methadone detox. Pt with drug seeking behavior. Has eloped in past ( 2014) - Refusing HIV/Hep C testing. States HIV test neg one year ago - Flexeril 10mg TID for lower back pain - avoid all opiates - Detox consult. Recs appreciated. - Cont methadone taper #alcohol dependence - monitor for withdrawal symptoms - Thiamine 100mg HS - Zofran SL 8mg q6h - Valium for withdrawal - F/u utox #Insomnia - Ambien 10mg PO HS FEN Fluids: PO hydration Electrolytes: Daily BMPs Nutrition: regular diet PPX Lovenox 40 mg SQ protonix 40mg PO Plan discussed with attending, Dr. Hayder Glaser, PGY1 Visit type - Emergency Visit Emergency Visit: Yes ED Registration Date: 11/03/17 Care time: The patient presented to the Emergency Department on the above date and was hospitalized for further evaluation of their emergent condition. - New Patient This patient is new to me today: No - Critical Care Critical Care patient: No
--- NOTE | 2017-11-05 15:51 | PN ---
Progress Note, Physician History of Present Illness: States he feels much better. Has no pain and is able to make a fist with his Lt hand due to less tenderness and swelling. - Current Medication List Current Medications: Active Medications Clonidine (Catapres -) 0.1 mg PO BID [facility] Last Admin: 11/05/17 09:54 Dose: 0.1 mg Cyclobenzaprine HCl (Flexeril -) 10 mg PO TID [facility] Last Admin: 11/05/17 14:22 Dose: 10 mg Diazepam (Valium -) 10 mg PO HS [facility] Last Admin: 11/04/17 23:41 Dose: Not Given Diazepam (Valium -) 5 mg PO BID [facility] Stop: 11/06/17 22:01 Last Admin: 11/05/17 09:55 Dose: 5 mg Diazepam (Valium -) 5 mg PO DAILY [facility] Stop: 11/07/17 10:01 Enoxaparin Sodium (Lovenox -) 40 mg SQ DAILY [facility] Last Admin: 11/05/17 10:02 Dose: Not Given Vancomycin HCl 1,000 mg/ (Dextrose) 250 mls @ 250 mls/hr IVPB BID [facility] PRN Reason: Protocol Last Admin: 11/05/17 09:53 Dose: 250 mls/hr Methadone HCl (Dolophine -) 10 mg PO ONCE ONE Stop: 11/07/17 10:01 Methadone HCl (Dolophine -) 15 mg PO ONCE ONE Stop: 11/06/17 10:01 Naproxen (Naprosyn -) 500 mg PO BID [facility] Last Admin: 11/05/17 09:54 Dose: 500 mg Ondansetron HCl (Zofran Odt -) 8 mg SL Q6H PRN PRN Reason: NAUSEA AND/OR VOMITING Pantoprazole Sodium (Protonix -) 40 mg PO DAILY [facility] Last Admin: 11/05/17 09:54 Dose: 40 mg Multivit/Folic Acid/Iron ( Vitamins (Sjr) -) 1 tab PO DAILY [facility] Last Admin: 11/05/17 09:54 Dose: 1 tab Thiamine HCl (Vitamin B1 -) 100 mg PO HS [facility] Last Admin: 11/04/17 22:07 Dose: 100 mg Zolpidem Tartrate (Ambien -) 10 mg PO HS PRN PRN Reason: INSOMNIA - Objective Vital Signs: Vital Signs Temperature 97.3 F L 11/05/17 15:38 Pulse Rate 64 11/05/17 15:38 Respiratory Rate 20 11/05/17 15:38 Blood Pressure 133/65 11/05/17 15:38 O2 Sat by Pulse Oximetry (%) 98 11/05/17 09:00 Constitutional: Yes: No Distress, Calm Neck: Yes: Supple Cardiovascular: Yes: Regular Rate and Rhythm Respiratory: Yes: Regular Gastrointestinal: Yes: Normal Bowel Sounds Extremities: Yes: Other (Lt hand swelling improved, no erythema, no open/ fluctuant lesions, improved ROM) Labs: CBC, BMP 11/05/17 07:58 11/05/17 07:58 Problem List - Problems (1) Cellulitis of hand Code(s): L03.119 - CELLULITIS OF UNSPECIFIED PART OF LIMB (2) Opioid dependence Code(s): F11.20 - OPIOID DEPENDENCE, UNCOMPLICATED Qualifiers: Substance use status: with unspecified opioid-induced disorder Qualified Code(s): F11.29 - Opioid dependence with unspecified opioid-induced disorder (3) Hepatitis C Code(s): B19.20 - UNSPECIFIED VIRAL HEPATITIS C WITHOUT HEPATIC COMA Qualifiers: Viral hepatitis chronicity: chronic Hepatic coma status: without hepatic coma Qualified Code(s): B18.2 - Chronic viral hepatitis C Assessment/Plan 42 y.o. male IVDU presenting with Lt hand swelling, erythema, tenderness with decreased ROM in fingers/wrist due to pain and mild leukocytosis. History of Hepatitis C - pt unclear what treatment he has gotten in the past - clinically improving - switch to augmentin 875 mg BID and Doxycycline 100 mg po BID x one week - f/u with GI or ID as outpt for hep C management
[2017-11-05 16:57] VITALS: BP 134/98; PULSE 80; TEMP 98.2
--- NOTE | 2017-11-05 18:06 | DS ---
Physical Exam: SUBJECTIVE: Patient seen and examined by me this AM - More agreeable today, less hostile. Initially refusing AM labs, now compliant. States he feels better, endorses improvement in pain/swelling in his hand. States he can move his thumb slightly better today. - Denies any other symptoms or complaints. No longer complaining about pain control. Wants to go home tomorrow. Still receiving vancomycin. - Has not been seen by ID today. Will f/u on their recommendations. - Will offer inpt detox services on discharge. OBJECTIVE: Vital Signs Intake & Output 11/02/17 11/03/17 11/04/17 11/05/17 23:59 23:59 23:59 23:59 Intake Total 940 1280 650 Output Total 0 Balance 940 1280 650 Weight 79.379 kg Period Temp Pulse Resp BP Sys/Rao Pulse Ox Last 24 Hr 97.3 F-98.2 F 64-80 18-20 124-144/65-98 95-98 PHYSICAL EXAM GENERAL: laying in bed, more pleasant today HEAD: Normal with no signs of trauma. No alopecia noted. EYES: sclera anicteric, conjunctiva clear. No ptosis. ENT: Ears normal, nares patent NECK: Trachea midline. No JVD noted. Supple. HEART: Regular rate and rhythm, S1, S2 without murmur, rub or gallop. Lungs: CTABL Upper EXTREMITIES: warm, well-perfused, no edema. Lower extremities: wwp, no edema. NEUROLOGICAL: Cranial nerves II through XII grossly intact. Normal speech, gait not observed. PSYCH: More pleasant affect, less hostile SKIN: Focal erythematous patch on lateral dorsal aspect of L hand, near thumb. Still with periarticular edema, no change in erythema. Not hot to touch. LABS Laboratory Results - last 24 hr CBC, BMP 11/05/17 07:58 11/05/17 07:58 11/05/17 11/05/17 07:58 07:58 WBC 7.5 D RBC 5.25 Hgb 15.4 D Hct 46.1 MCV 87.8 MCH 29.3 MCHC 33.3 RDW 13.8 Plt Count 366 D MPV 8.2 Neutrophils % 59.1 Lymphocytes % 29.6 Monocytes % 6.7 Eosinophils % 3.6 Basophils % 1.0 Sodium 139 Potassium 5.1 D Chloride 104 Carbon Dioxide 29 Anion Gap 6 L BUN 13 D Creatinine 0.8 D Random Glucose 105 Calcium 9.0 Microbiology 11/03/17 03:50 Blood - Peripheral Venous Blood Culture - Preliminary NO GROWTH OBTAINED AFTER 48 HOURS, INCUBATION TO CONTINUE FOR 3 DAYS. 11/03/17 03:50 Blood - Peripheral Venous Blood Culture - Preliminary NO GROWTH OBTAINED AFTER 48 HOURS, INCUBATION TO CONTINUE FOR 3 DAYS. Imaging: L Hand XR 11/04 - Soft tissue swelling around thumb. Ring on 5th digit noted HOSPITAL COURSE: Date of Admission:11/03/17 Date of Discharge: 11/05/17 42 yo man w/ pmh of Hep C, polysubstance abuse (tobacco, alcohol, heroin, cocaine) who presents with cellulitis of L hand at injection site of past 3 days. Pt was seen by ID on admission and started on IV vancomycin empirically for presumed GP cellulitis. XR of L hand 11/04 notable for soft tissue swelling around the thumb. On admission, pt hostile, aggresive with staff, complaining about inadequate pain control. Pt was started on methadone taper for detox and valium for alcohol withdrawal symptoms. Pt improved with IV vancomycin, w/ decreased erythema and edema in hand. Pt was approved for outpt suboxone detox protocol w/ referral for outpt rehab at [facility]. Pt was discharged on PO augmentin and doxycycline for further tx of cellulitis. Consults: ID - Dr. Slater Plan per ID: - clinically improving - switch to augmentin 875 mg BID and Doxycycline 100 mg po BID x one week - f/u with GI or ID as outpt for hep C management Detox - Dr. Sandoval Plan per Detox team: 42 y with opioid use diorder, idu, chronic alcoholism, cocaine and nicotien dependence admitted with bilateral hand cellultis on iv antibiotics and methadoen and valium deotx regiemn which he his tooleratig well. Patient does not want to go to rehab at [facility] but may be open to another facility would like to start suboxone when he leavves. If he can get an appointment at [facility] I will give him a prescription for suboxone until he can make his appointment. Let me know time and date and I will give him the precription when discharged. He does not need to complete his detox to be dicharged when medically stable if he gets a prescription fro suboxone. Pt is medically stable and cleared for discharge on PO antibiotics for further outpatient tx of cellulitis and suboxone detox protocol for heroin addiction. He will follow-up with Dr. Nuñez to establish a PCP and Dr. Lopez for further management of his Hepatitis C. He is scheduled for an appointment at the [facility] for continuation of his rehab therapy. Minutes to complete discharge: 25 Discharge Summary Reason For Visit: CELLULITIS OF HAND, OPIOD DEPENDENCE Condition: Stable - Instructions Diet, Activity, Other Instructions: You were treated for drug withdrawal and cellulitis in your left hand with IV antibiotics. Take antibiotics augmentin 875 mg 1 tablet twice daily and Doxycycline 100 mg 1 tablet twice daily for one week to complete the course of antibiotics, from 10/2017 - 11/12/2017. Prescriptions have been sent to the pharmacy. Follow-up - contact information for Dr. Nuñez, a primary care physician has been provided , please make an appointment for post-hospital evaluation and to establish a primary care physician - contact information for Dr. Lopez, a GI doctor has been provided. Please make an appointment for further evaluation of your Hepatitis C. Recommendations: Abstain from drugs and alcohol, seek rehabilitation treatment to help with your dependence. You have an appointment with [facility] on November 07 2017 at 1pm, please call [phone] if you have any difficulties. You have been given a prescription for 1 week of suboxone until your appointment. If you develop worsening of the hand wound, chest pain, trouble breathing, fevers or any new symptoms, please return to the hospital. Referrals: Micah Nuñez MD [Staff Physician] - Prashanth Lopez MD [Staff Physician] - Disposition: HOME - Home Medications Comprehensive Discharge Medication List: Ambulatory Orders Amox-Tr/K Cl [Augmentin - 875Mg Tablet] 1 tab PO BID #14 tablet 11/05/17 Buprenorphine/Naloxone [Suboxone 2Mg/0.5MG Sl Film -] 2 each SL DAILY 7 Days # 14 packet MDD 2 11/05/17 Doxycycline Hyclate 100 mg PO BID #14 capsule 11/05/17 This patient is new to me today: No Emergency Visit: Yes ED Registration Date: 11/03/17 Care time: The patient presented to the Emergency Department on the above date and was hospitalized for further evaluation of their emergent condition. Critical Care patient: No - Discharge Referral Referred to [facility] Yes Physician Referral: Jules Conley MD ([facility])
[2017-11-06] MEDS ORDERED: BUPRENORPHINE/NALOXONE 2 MG/0.5 MG FILM PACKET SL SCH (10:00)
[2017-11-06] MEDS ORDERED: METHADONE HCL 5 MG TABLET PO ONE ×3 (10:00)
[2017-11-07] MEDS ORDERED: diazePAM 5 MG TABLET PO SCH (10:00)
[2017-11-07] MEDS ORDERED: METHADONE HCL 10 MG TABLET PO ONE ×2 (10:00)
[2017-11-08] MEDS ORDERED: METHADONE HCL 5 MG TABLET PO ONE (06:00)
== END 2017-11-05 17:56 | disposition home or self-care (01) | DRG 383 ==
LOC: JER 21:40 → JERBED 11-03 05:08 → UNDOADMIN 11-03 05:53 → J7W 11-03 07:13
PROVIDERS: ADMIT Internal Medicine; ATTEND Internal Medicine
DX: L03.114 Cellulitis of left upper limb (principal); F11.20 Opioid dependence, uncomplicated; B19.20 Unspecified viral hepatitis C without hepatic coma; F14.20 Cocaine dependence, uncomplicated; I10 Essential (primary) hypertension; G47.00 Insomnia, unspecified; F10.20 Alcohol dependence, uncomplicated; F17.210 Nicotine dependence, cigarettes, uncomplicated; D72.829 Elevated white blood cell count, unspecified
CPT/HCPCS: 36415; 73130-TC-LT; 80048; 80053; 85025; 85651; 86140; 87040; 99285-25

== ENCOUNTER 2017-12-28 08:58 | Inpatient (IN) | payer OTHER ==
[2017-12-28 10:05] VITALS: BMI 26.6
--- NOTE | 2017-12-28 12:07 | HP ---
COWS - Scale Resting Pulse: 0= IN 80 or Below Sweatin= Chills/Flushing Restless Observation: 3= Extraneous Movement Pupil Size: 1= Pupils >than Normal Bone or Joint Aches: 1= Mild Discomfort Runny Nose/ Eye Tearin= None GI Upset > 30mins: 0= None Tremor Observation: 2= Slight Tremor Visible Yawning Observation: 2= >3x During Session Anxiety or Irritability: 2=Irritable/Anxious Goose Flesh Skin: 0=Smooth Skin COWS Score: 12 CIWA Score - CIWA Score Nausea/Vomitin-No Nausea/No Vomiting Muscle Tremors: 4-Moderate,w/Arms Extend Anxiety: 4-Mod. Anxious/Guarded Agitation: 1-Slight > Activity Paroxysmal Sweats: 3 Orientation: 0-Oriented Tacttile Disturbances: 0-None Auditory Disturbances: 0-None Visual Disturbances: 0-None Headache: 0-None Present CIWA-Ar Total Score: 12 Admission ROS S - HPI Chief Complaint: withdrawal symptoms Allergies/Adverse Reactions: Allergies Allergy/AdvReac Type Severity Reaction Status Date / Time fish derived Allergy Severe Hives Verified 12/28/17 10:15 Fish Allergy Severe Hives Uncoded 12/28/17 10:15 NKDA Allergy Uncoded 12/28/17 10:15 History of Present Illness: 42 yo male with history of IV drug use, Heroin, Alcohol, and cocaine dependence is here for detox. PMHX of Hep C, and cellulitis of the right hand, was seen at [facility] in 2016 for this issue, reports was advised he needs to go to an inpatient facility for IV abx tx and he signed himself AMA, denies any other medical problems. Smoking hx of 1 pack of cigarettes per day. Hx of multiple admissions to [facility], last detox 2016, longest period of sobriety 10 months. Denies suicidal / homicidal ideation or suicide attempts. Exam Limitations: No Limitations - Ebola screening Have you traveled outside of the country in the last 21 days: No (N) Have you had contact with anyone from an Ebola affected area: No Have you been sick,other than usual withdrawal symptoms: No Do you have a fever: No - Review of Systems Constitutional: Chills, Loss of Appetite, Changes in sleep, Unexplained wgt Loss (reports 18 lbs weight from September 2017 to now) EENT: reports: No Symptoms Reported Respiratory: reports: No Symptoms reported Cardiac: reports: No Symptoms Reported GI: reports: No Symptoms Reported : reports: No Symptoms Reported Musculoskeletal: reports: Back Pain (6/10 non radiating), Joint Pain Integumentary: reports: Erythema, Sweating (left hand) Neuro: reports: Tremors Endocrine: reports: Increased Thirst, Change in Weight Hematology: reports: No Symptoms Reported Psychiatric: reports: Orientated x3, Anxious Other Systems: Reviewed and Negative Patient History - Patient Medical History Hx Anemia: No Hx Asthma: No Hx Chronic Obstructive Pulmonary Disease (COPD): No Hx Cancer: No Hx Cardiac Disorders: No Hx Congestive Heart Failure: No Hx Hypertension: No Hx Hypercholesterolemia: No Hx Pacemaker: No HX Cerebrovascular Accident: No Hx Seizures: No Hx Diabetes: No Hx Gastrointestinal Disorders: No Hx Liver Disease: Yes (Hep C dx 2005) Hx Genitourinary Disorders: No Hx Sexually Transmitted Disorders: No Hx Renal Disease (ESRD): No Hx Thyroid Disease: No Hx Human Immunodeficiency Virus (HIV): No (negative) Hx Hepatitis C: Yes (dx 2005) Hx Depression: No Hx Suicide Attempt: No Hx Bipolar Disorder: No Hx Schizophrenia: No - Patient Surgical History Past Surgical History: Yes Hx Neurologic Surgery: No Hx Cataract Extraction: No Hx Cardiac Surgery: No Hx Lung Surgery: No Hx Breast Surgery: No Hx Breast Biopsy: No Hx Abdominal Surgery: Yes (LT INGUINAL HERNIA) Hx Appendectomy: No Hx Cholecystectomy: No Hx Genitourinary Surgery: No Hx Section: No Hx Orthopedic Surgery: No Anesthesia Reaction: No - PPD History Previous Implant?: Yes Documented Results: Positive w/o proof Results: CXR(-)09/21/17 PPD to be Administered?: No - Reproductive History Patient is a Female of Child Bearing Age (11 -55 yrs old): No - Smoking Cessation Smoking history: Current every day smoker Have you smoked in the past 12 months: Yes Aproximately how many cigarettes per day: 20 Cigars Per Day: 0 Hx Chewing Tobacco Use: No Initiated information on smoking cessation: Yes 'Breaking Loose' booklet given: 12/28/17 - Substances Abused Heroin Route: Injection Frequency: Daily Amount used: 7-10 bags Age of first use: 25 Date of Last Use: 12/28/17 Cocaine Route: Injection Frequency: 3-6 times per week Amount used: $20-30 Age of first use: 25 Date of Last Use: 12/25/17 Alcohol-vodka/beer Route: Oral Frequency: Daily Amount used: 1 pt./1-6 pk. Age of first use: 16 Date of Last Use: 12/28/17 Oxycontin Route: Oral Frequency: 1-2 times per week Amount used: 2 Age of first use: 42 Date of Last Use: 12/26/17 Family Disease History - Family Disease History Family Disease History: Diabetes: Grandparent (dec), Father (dec), Other: Mother (alive and well) Admission Physical Exam [facility] - Vital Signs Vital Signs: Vital Signs - 24 hr 12/28/17 10:02 Temperature 96.7 F L Pulse Rate 77 Respiratory 20 Rate Blood Pressure 141/84 - Physical General Appearance: Yes: Disheveled, Tremorous, Sweating, Anxious HEENTM: Yes: Hearing grossly Normal, Normal ENT Inspection, Normocephalic, Normal Voice, Pharynx Normal, Tm's normal, Other (dry mucous membranes) Respiratory: Yes: Chest Non-Tender, No Respiratory Distress, No Accessory Muscle Use, Wheezing (mid left lobe) Neck: Yes: No masses,lesions,Nodules, Trachea in good position Breast: Yes: Breast Exam Deferred Cardiology: Yes: Regular Rhythm, Regular Rate, S1, S2 Abdominal: Yes: Normal Bowel Sounds, Non Tender, Flat, Soft Genitourinary: Yes: Within Normal Limits (reports no urinary symptoms) Back: Yes: Normal Inspection, Other (+ pain mid lower back) Musculoskeletal: Yes: full range of Motion, Gait Steady, Pelvis Stable, Back pain Extremities: Yes: Normal Capillary Refill, Normal Range of Motion, Non-Tender, Swelling (edema on the right hand, warm to touch), Other Neurological: Yes: Fully Oriented, Alert, Motor Strength 5/5, Normal Mood/Affect , Normal Response Integumentary: Yes: Pitting Edema (right hand), Track Alcantar (b/t forearms in different healing stages), Other (poor skin turgor) Lymphatic: Yes: Within Normal Limits - Diagnostic (1) Cellulitis of right hand Current Visit: Yes Status: Acute (2) Lumbago without sciatica Current Visit: Yes Status: Chronic Qualifiers: Back pain laterality: midline (3) Weight loss Current Visit: Yes Status: Acute (4) Dehydration Current Visit: Yes Status: Acute (5) Sleep difficulties Current Visit: Yes Status: Acute (6) Alcohol dependence with uncomplicated withdrawal Current Visit: No Status: Acute (7) Nicotine dependence Current Visit: Yes Status: Chronic Qualifiers: Nicotine product type: cigarettes Substance use status: in withdrawal Qualified Code(s): F17.213 - Nicotine dependence, cigarettes, with withdrawal (8) Opioid dependence with withdrawal Current Visit: Yes Status: Acute (9) Hepatitis C Current Visit: Yes Status: Chronic Qualifiers: Viral hepatitis chronicity: chronic Hepatic coma status: without hepatic coma Qualified Code(s): B18.2 - Chronic viral hepatitis C (10) PPD positive, treated Current Visit: No Status: Resolved Cleared for Admission S - Detox or Rehab [facility] Level of Care: Medically Managed Detox Regimen/Protocol: Methadone/Librium S Breath Alcohol Content Breath Alcohol Content: 0 Urine Drug Screen - Results Drug Screen Negative: No Urine Drug Screen Results: BATOOL-Cocaine, OPI-Opiates, OXY-Oxycodone
[2017-12-28] MEDS ORDERED: MAG HYDROX/AL HYDROX/SIMETH 30 ML UNIT-DOSE CUP PO PRN (12:28)
[2017-12-28] MEDS ORDERED: MAGNESIUM HYDROX 2400MG/30ML ORAL SUSPENSION 30 ML CUP PO PRN (12:28)
[2017-12-28] MEDS ORDERED: hydrOXYzine PAMOATE 50 MG CAPSULE (FP) PO PRN (12:28)
[2017-12-28] MEDS ORDERED: ACETAMINOPHEN 325 MG TABLET (FP) PO PRN (12:28)
[2017-12-28] MEDS ORDERED: LOPERAMIDE HCL 2 MG CAPSULE PO PRN (12:28)
[2017-12-28] MEDS ORDERED: NICOTINE POLACRILEX 2 MG GUM BUC PRN (12:28)
[2017-12-28] MEDS ORDERED: MENTHOL/PHENOL 1 EACH UD MM PRN (12:28)
[2017-12-28] MEDS ORDERED: P-EPHED 60MG/TRIPROLIDI 2.5MG TABLET PO PRN (12:28)
[2017-12-28] MEDS ORDERED: IBUPROFEN 400 MG TABLET (FP) PO PRN (12:28)
[2017-12-28] MEDS ORDERED: guaiFENesin/D-METHORPHAN HB 10 ML UNIT-DOSE CUPS PO PRN (12:28)
[2017-12-28] MEDS ORDERED: chlordiazePOXIDE HCL 25 MG CAPSULE PO PRN (12:28)
[2017-12-28] MEDS ORDERED: MAGNESIUM CITRATE 300 ML BOTTLE PO PRN (12:28)
[2017-12-28] MEDS ORDERED: chlordiazePOXIDE HCL 25 MG CAPSULE PO ONE (12:54)
[2017-12-28] MEDS ORDERED: METHADONE HCL 10 MG TABLET (FOR DETOX USE ONLY) PO ONE ×2 (12:55→23:00)
--- NOTE | 2017-12-28 15:01 | CONSULT ---
[facility] Psychiatric Consult - Data Date of interview: 12/28/17 Admission source: [facility] Identifying data: Pt. is a 42 year single male, father of one, and currently unemployed. This is patient's first admission to [facility]. Substance Abuse History: Following information confirmed with Mr. Anguiano: - Smoking Cessation. Smoking history: Current every day smoker. Have you smoked in the past 12 months: Yes. Aproximately how many cigarettes per day: 20. Cigars Per Day: 0. Hx Chewing Tobacco Use: No. Initiated information on smoking cessation: Yes. 'Breaking Loose' booklet given: 12/28/17. - Substances Abused. Heroin. Route: Injection. Frequency: Daily. Amount used: 7-10 bags. Age of first use: 25. Date of Last Use: 12/28/17. Cocaine. Route: Injection. Frequency: 3-6 times per week. Amount used: $20- 30. Age of first use: 25. Date of Last Use: 12/25/17. Alcohol-vodka/beer. Route: Oral. Frequency: Daily. Amount used: 1 pt./1-6 pk. Age of first use : 16. Date of Last Use: 12/28/17. Oxycontin. Route: Oral. Frequency: 1-2 times per week. Amount used: 2. Age of first use: 42. Date of Last Use: 12/26 Medical History: Hep C Psychiatric History: Pt. denies h/o psychiatric hospitalizations, suicide attempts, and outpatient care. Physical/Sexual Abuse/Trauma History: Denies. Additional Comment: Urine Drug Screen Results: BATOOL-Cocaine, OPI-Opiates, OXY- Oxycodone Mental Status Exam - Mental Status Exam Alert and Oriented to: Time, Place, Person Cognitive Function: Good Patient Appearance: Well Groomed Mood: Euthymic Affect: Mood Congruent Patient Behavior: Appropriate, Cooperative Speech Pattern: Clear, Appropriate Voice Loudness: Normal Thought Process: Goal Oriented Thought Disorder: Not Present Hallucinations: Denies Suicidal Ideation: Denies Homicidal Ideation: Denies Insight/Judgement: Poor Sleep: Poorly Appetite: Poor Muscle strength/Tone: Normal Gait/Station: Normal Psychiatric Findings - Problem List ([place] 1, 2,3) (1) Insomnia Current Visit: Yes Status: Acute (2) Opioid dependence with withdrawal Current Visit: Yes Status: Acute (3) Nicotine dependence Current Visit: Yes Status: Chronic Qualifiers: Nicotine product type: cigarettes Substance use status: in withdrawal Qualified Code(s): F17.213 - Nicotine dependence, cigarettes, with withdrawal (4) Alcohol dependence with uncomplicated withdrawal Current Visit: Yes Status: Acute (5) Cocaine dependence Current Visit: Yes Status: Acute Qualifiers: Substance use status: uncomplicated Qualified Code(s): F14.20 - Cocaine dependence, uncomplicated - Initial Treatment Plan Initial Treatment Plan: Psychoeducation provided. Detoxification provided. Ambien 10mg qhs PRN orderd for insomnia. Pt. reports favorable effects from previously taking ambien. Benefits and side effects (sleep walking) discussed. Verbal consent given. Will continue to monitor.
[2017-12-28] MEDS: NICOTINE 21 MG/24 HOURS TOPICAL PATCH TD SCH (15:08)
[2017-12-28] MEDS: chlordiazePOXIDE HCL 25 MG CAPSULE PO SCH ×2 (17:14→22:18)
[2017-12-28] MEDS: CEPHALEXIN MONOHYDRATE 500 MG CAPSULE (UD) PO SCH ×2 (17:14→23:24)
[2017-12-28 17:36] LABS: URINE APPEARANCE CLEAR; URINE BILIRUBIN NEGATIVE (NEGATIVE); URINE BLOOD NEGATIVE (NEGATIVE); URINE COLOR LTYELLOW; URINE GLUCOSE (UA) NEGATIVE (NEGATIVE); URINE KETONE NEGATIVE (NEGATIVE); URINE LEUK ESTERASE NEGATIVE (NEGATIVE); URINE NITRITE NEGATIVE (NEGATIVE); URINE PROTEIN NEGATIVE (NEGATIVE); URINE UROBILINOGEN NEGATIVE mg/dL (0.2-1.0)
[2017-12-28] MEDS ORDERED: ZOLPIDEM TARTRATE 10 MG TABLET (PARK CARE ONLY) PO PRN (22:00)
[2017-12-28] MEDS: THIAMINE HCL 100 MG TABLET (FP) PO SCH (22:18)
[2017-12-29] MEDS: CEPHALEXIN MONOHYDRATE 500 MG CAPSULE (UD) PO SCH ×4 (06:31→23:59)
[2017-12-29] MEDS: chlordiazePOXIDE HCL 25 MG CAPSULE PO SCH ×4 (06:31→23:58)
--- NOTE | 2017-12-29 09:37 | PN ---
S CIWA - CIWA Score Nausea/Vomitin Muscle Tremors: 3 Anxiety: 3 Agitation: 3 Paroxysmal Sweats: 1-Minimal Palms Moist Orientation: 0-Oriented Tacttile Disturbances: 1-Very Mild Itch/Numbness Auditory Disturbances: 1-Very Mild Visual Disturbances: 0-None Headache: 2-Mild CIWA-Ar Total Score: 17 [facility] COWS - Scale Resting Pulse: 0= [place] 80 or Below Sweatin= Chills/Flushing Restless Observation: 3= Extraneous Movement Pupil Size: 1= Pupils >than Normal Bone or Joint Aches: 2= Severe Diffuse Aches Runny Nose/ Eye Tearin= Runny Nose/Eyes GI Upset > 30mins: 3= Vomiting/Diarrhea Tremor Observation of Outstretched Hands: 2= Slight Tremor Visible Yawning Observation: 1= 1-2x During Session Anxiety or Irritability: 2=Irritable/Anxious Goose Flesh Skin: 0=Smooth Skin COWS Score: 17 [facility] Progress Note (SOAP) Subjective: ALERT,IRRITABLE,ANXIOUS,INTERRUPTED SLEEP,TREMOR,PAIN IN THE BODY AND BACK Objective: 12/29/17 09:36 Vital Signs Temperature 98 F 12/29/17 06:17 Pulse Rate 59 L 12/29/17 06:17 Respiratory Rate 16 12/29/17 06:17 Blood Pressure 139/90 12/29/17 06:17 O2 Sat by Pulse Oximetry (%) EKG NSR,NORMAL ECG Laboratory Last Values Urine Color Ltyellow 12/28/17 15:00 Urine Appearance Clear 12/28/17 15:00 Urine pH 6.0 (5.0-8.0) 12/28/17 15:00 Ur Specific [place] 1.021 (1.001-1.035) 12/28/17 15:00 Urine Protein Negative (NEGATIVE) 12/28/17 15:00 Urine Glucose (UA) Negative (NEGATIVE) 12/28/17 15:00 Urine Ketones Negative (NEGATIVE) 12/28/17 15:00 Urine Blood Negative (NEGATIVE) 12/28/17 15:00 Urine Nitrite Negative (NEGATIVE) 12/28/17 15:00 Urine Bilirubin Negative (NEGATIVE) 12/28/17 15:00 Urine Urobilinogen Negative mg/dL (0.2-1.0) 12/28/17 15:00 Ur Leukocyte Esterase Negative (NEGATIVE) 12/28/17 15:00 LABS PENDING Assessment: 12/29/17 09:37 WITHDRAWAL SYMPTOM Plan: CONTINUE DETOX
[2017-12-29] MEDS ORDERED: METHADONE HCL 10 MG TABLET (FOR DETOX USE ONLY) PO SCH (10:00)
[2017-12-29] MEDS: PRENATAL VITAMINS W/ FOLIC ACID TABLET (FP) PO SCH (10:13)
[2017-12-29] MEDS: NICOTINE 21 MG/24 HOURS TOPICAL PATCH TD SCH (10:13)
[2017-12-29] MEDS: CYCLOBENZAPRINE HCL 5 MG TABLET PO PRN (10:13)
[2017-12-29 10:54] LABS: HEMATOCRIT 43.7 % (35.4-49); HEMOGLOBIN 14.2 GM/dL (11.7-16.9); MCH 28.7 pg (25.7-33.7); MCHC 32.5 g/dl (32.0-35.9); MEAN CELL VOLUME 88.3 fl (80-96); MEAN PLT VOLUME 9.3 fl (7.5-11.1); PLATELET COUNT 325 K/MM3 (134-434); RBC 4.96 M/mm3 (4.00-5.60); RDW 14.3 % (11.9-15.9); WHITE BLOOD COUNT 7.8 K/mm3 (4.0-10.0)
[2017-12-29 11:43] LABS: ALBUMIN 3.6 g/dl (3.4-5.0); ALK PHOS 105 U/L (45-117); ANION GAP 6 (8-16); BILIRUBIN,TOTAL 0.4 mg/dL (0.2-1.0); BLOOD UREA NITROGEN 17 mg/dL (7-18); CALCIUM 8.1 mg/dL (8.5-10.1); CHLORIDE 105 mmol/L (98-107); CO2 30 mmol/L (21-32); CREATININE 0.7 mg/dL (0.7-1.3); GLUCOSE,RANDOM 88 mg/dL (74-106); POTASSIUM 4.4 mmol/L (3.5-5.1); SGOT/AST 22 U/L (15-37); SGPT/ALT 38 U/L (12-78); SODIUM 141 mmol/L (136-145); TOT PROT 6.8 g/dl (6.4-8.2)
[2017-12-29] MEDS: THIAMINE HCL 100 MG TABLET (FP) PO SCH (23:59)
[2017-12-30] MEDS: chlordiazePOXIDE HCL 25 MG CAPSULE PO SCH ×2 (05:41→10:43)
[2017-12-30] MEDS: CEPHALEXIN MONOHYDRATE 500 MG CAPSULE (UD) PO SCH ×2 (07:11→18:55)
[2017-12-30] MEDS ORDERED: METHADONE HCL 5 MG TABLET (FOR DETOX USE ONLY) PO SCH (10:00)
[2017-12-30] MEDS: PRENATAL VITAMINS W/ FOLIC ACID TABLET (FP) PO SCH (10:43)
[2017-12-30] MEDS: NICOTINE 21 MG/24 HOURS TOPICAL PATCH TD SCH (10:43)
[2017-12-30] MEDS: CYCLOBENZAPRINE HCL 5 MG TABLET PO PRN (10:43)
--- NOTE | 2017-12-30 13:25 | EKG ---
Test Reason : Blood Pressure : / mmHG Vent. Rate : 069 BPM Atrial Rate : 069 BPM P-R Int : 160 ms QRS Dur : 086 ms QT Int : 410 ms P-R-T Axes : 062 082 058 degrees QTc Int : 439 ms NORMAL SINUS RHYTHM NORMAL ECG WHEN COMPARED WITH ECG OF 20-SEP-2017 15:12, NO SIGNIFICANT CHANGE WAS FOUND BASELINE ARTIFACT Confirmed by YOLY GATES, CARLOS ([id number]) on 12/30/2017 1:25:19 PM Referred By: Confirmed By:CARLOS FREDERICK MD
--- NOTE | 2017-12-30 15:15 | PN ---
[facility] CIWA - CIWA Score Nausea/Vomitin-Mild Nausea/No Vomiting Muscle Tremors: 3 Anxiety: 3 Agitation: 4-Moderately Restless Paroxysmal Sweats: 1-Minimal Palms Moist Orientation: 0-Oriented Tacttile Disturbances: 1-Very Mild Itch/Numbness Auditory Disturbances: 0-None Visual Disturbances: 0-None Headache: 1-Very Mild CIWA-Ar Total Score: 14 [facility] COWS - Scale Resting Pulse: 0= [place] 80 or Below Sweatin= Chills/Flushing Restless Observation: 1= Difficult to Sit Still Pupil Size: 1= Pupils >than Normal Bone or Joint Aches: 2= Severe Diffuse Aches Runny Nose/ Eye Tearin= Runny Nose/Eyes GI Upset > 30mins: 1= Stomach Cramp Tremor Observation of Outstretched Hands: 2= Slight Tremor Visible Yawning Observation: 1= 1-2x During Session Anxiety or Irritability: 2=Irritable/Anxious Goose Flesh Skin: 0=Smooth Skin COWS Score: 13 S Progress Note (SOAP) Subjective: chill sweat joint aches anxiety muscle aches stuffy nose Objective: 12/30/17 15:13 Vital Signs Temperature 97.1 F L 12/30/17 10:44 Pulse Rate 76 12/30/17 10:44 Respiratory Rate 20 12/30/17 10:44 Blood Pressure 153/106 12/30/17 10:44 O2 Sat by Pulse Oximetry (%) Laboratory Last Values WBC 7.8 K/mm3 (4.0-10.0) 12/29/17 08:15 RBC 4.96 M/mm3 (4.00-5.60) 12/29/17 08:15 Hgb 14.2 GM/dL (11.7-16.9) 12/29/17 08:15 Hct 43.7 % (35.4-49) 12/29/17 08:15 MCV 88.3 fl (80-96) 12/29/17 08:15 MCH 28.7 pg (25.7-33.7) 12/29/17 08:15 MCHC 32.5 g/dl (32.0-35.9) 12/29/17 08:15 RDW 14.3 % (11.9-15.9) 12/29/17 08:15 Plt Count 325 K/MM3 (134-434) 12/29/17 08:15 MPV 9.3 fl (7.5-11.1) D 12/29/17 08:15 Sodium 141 mmol/L (136-145) 12/29/17 08:15 Potassium 4.4 mmol/L (3.5-5.1) 12/29/17 08:15 Chloride 105 mmol/L (98-107) 12/29/17 08:15 Carbon Dioxide 30 mmol/L (21-32) 12/29/17 08:15 Anion Gap 6 (8-16) L 12/29/17 08:15 BUN 17 mg/dL (7-18) D 12/29/17 08:15 Creatinine 0.7 mg/dL (0.7-1.3) 12/29/17 08:15 Creat Clearance w eGFR > 60 (>60) 12/29/17 08:15 Random Glucose 88 mg/dL (74-106) 12/29/17 08:15 Calcium 8.1 mg/dL (8.5-10.1) L 12/29/17 08:15 Total Bilirubin 0.4 mg/dL (0.2-1.0) 12/29/17 08:15 AST 22 U/L (15-37) 12/29/17 08:15 ALT 38 U/L (12-78) 12/29/17 08:15 Alkaline Phosphatase 105 U/L (45-117) D 12/29/17 08:15 Total Protein 6.8 g/dl (6.4-8.2) 12/29/17 08:15 Albumin 3.6 g/dl (3.4-5.0) 12/29/17 08:15 Urine Color Ltyellow 12/28/17 15:00 Urine Appearance Clear 12/28/17 15:00 Urine pH 6.0 (5.0-8.0) 12/28/17 15:00 Ur Specific [place] 1.021 (1.001-1.035) 12/28/17 15:00 Urine Protein Negative (NEGATIVE) 12/28/17 15:00 Urine Glucose (UA) Negative (NEGATIVE) 12/28/17 15:00 Urine Ketones Negative (NEGATIVE) 12/28/17 15:00 Urine Blood Negative (NEGATIVE) 12/28/17 15:00 Urine Nitrite Negative (NEGATIVE) 12/28/17 15:00 Urine Bilirubin Negative (NEGATIVE) 12/28/17 15:00 Urine Urobilinogen Negative mg/dL (0.2-1.0) 12/28/17 15:00 Ur Leukocyte Esterase Negative (NEGATIVE) 12/28/17 15:00 RPR Titer Nonreactive (NONREACTIVE) 12/29/17 08:15 lab noted Assessment: 12/30/17 15:14 withdrawal sx Plan: continue detox
[2017-12-30] MEDS: chlordiazePOXIDE 5 MG CAPSULE PO SCH ×2 (17:55→22:47)
[2017-12-30] MEDS: THIAMINE HCL 100 MG TABLET (FP) PO SCH (22:47)
[2017-12-31] MEDS: CEPHALEXIN MONOHYDRATE 500 MG CAPSULE (UD) PO SCH ×2 (00:12→07:11)
[2017-12-31] MEDS: chlordiazePOXIDE 5 MG CAPSULE PO SCH (06:10)
[2017-12-31 06:15] VITALS: BP 153/103; PULSE 68; TEMP 98.1
[2017-12-31] MEDS: CYCLOBENZAPRINE HCL 5 MG TABLET PO PRN (07:10)
--- NOTE | 2017-12-31 09:09 | PN ---
[facility] Progress Note (SOAP) Subjective: ALERT,IRRITABLE,ANXIOUS,PAIN IN THE BODY AND BACK Objective: 12/31/17 09:08 Vital Signs Temperature 98.1 F 12/31/17 06:15 Pulse Rate 68 12/31/17 06:15 Respiratory Rate 18 12/31/17 06:15 Blood Pressure 153/103 12/31/17 06:15 O2 Sat by Pulse Oximetry (%) Assessment: 12/31/17 09:08 WITHDRAWAL SYMPTOM Plan: CONTINUE DETOX
--- NOTE | 2017-12-31 09:12 | DS ---
[facility] Detox Discharge Summary Admission Date: 12/28/17 Discharge Date: 12/31/17 - History Present History: Alcohol Dependence, Opioid Dependence Additional Comments: PATIENT DID NOT WANT TO COMPLETE,SEEN BY COUNSELOR TREATMENT,SIGNED RELEASE AMA Pertinent Past History: NICOTINE DEPENDENCE HEPATITIS C LOW BACK PAIN - Physical Exam Results Vital Signs: Vital Signs Temperature 98.1 F 12/31/17 06:15 Pulse Rate 68 12/31/17 06:15 Respiratory Rate 18 12/31/17 06:15 Blood Pressure 153/103 12/31/17 06:15 O2 Sat by Pulse Oximetry (%) Pertinent Admission Physical Exam Findings: WITHDRAWAL SYMPTOM AND FINDING - Medication Discharge Medications: Ambulatory Orders NK [No Known Home Medication] 12/28/17 - Diagnosis (1) Opioid dependence with withdrawal Current Visit: Yes Status: Acute (2) Alcohol dependence with uncomplicated withdrawal Current Visit: Yes Status: Acute (3) Low back pain Current Visit: Yes Status: Acute (4) Cellulitis of right hand Current Visit: Yes Status: Acute (5) Cocaine dependence Current Visit: Yes Status: Acute Qualifiers: Substance use status: uncomplicated Qualified Code(s): F14.20 - Cocaine dependence, uncomplicated (6) Insomnia Current Visit: Yes Status: Acute (7) Weight loss Current Visit: Yes Status: Acute (8) Nicotine dependence Current Visit: Yes Status: Chronic Qualifiers: Nicotine product type: cigarettes Substance use status: in withdrawal Qualified Code(s): F17.213 - Nicotine dependence, cigarettes, with withdrawal - AMA Did Patient Leave Against Medical Advice: Yes
[2017-12-31] MEDS ORDERED: chlordiazePOXIDE HCL 10 MG CAPSULE PO SCH (17:00)
[2018-01-01] MEDS ORDERED: METHADONE HCL 10 MG TABLET (FOR DETOX USE ONLY) PO SCH (10:00)
[2018-01-02] MEDS ORDERED: METHADONE HCL 5 MG TABLET (FOR DETOX USE ONLY) PO SCH (06:00)
== END 2017-12-31 09:20 | disposition left against medical advice (07) | DRG 347 ==
LOC: YASAS 08:58 → Y6N 12:48
PROVIDERS: ADMIT Internal Medicine; ATTEND Internal Medicine
PROC: HZ2ZZZZ Detoxification Services for Substance Abuse Treatment (ICD-10-PCS; principal; 2017-12-28)
DX: M54.5 Low back pain (principal); L03.113 Cellulitis of right upper limb; G47.00 Insomnia, unspecified; B18.2 Chronic viral hepatitis C; Z91.013 Allergy to seafood; Z87.898 Personal history of other specified conditions
CPT/HCPCS: 36415; 80053; 81003; 85027; 86593; 93005; 93010

== ENCOUNTER 2018-02-27 00:09 | Emergency (ER) | payer OTHER ==
[2018-02-27 00:17] VITALS: BP 152/96; PULSE 87; BMI 21.9
--- NOTE | 2018-02-27 01:52 | PDOC ---
History of Present Illness - General Chief Complaint: Foreign Body (FB) Stated Complaint: FOREIGN OBJECT Time Seen by Provider: 02/27/18 01:13 - History of Present Illness Initial Comments: 02/27/18 01:49 CHIEF COMPLAINT: HISTORY OF PRESENT ILLNESS: 42 yo M presents to ED with c/o needle stuck in arm per triage nurse. Patient uncooperative during interview and is drowsy, repeatedly falling asleep during interview. No recent travel or sick contacts. PAST MEDICAL HISTORY: Denies past medical history FAMILY HISTORY: Denies SOCIAL HISTORY: Lives at home with ____. Occupation: . Denies tobacco, alcohol, illicit drug use. SURGICAL HISTORY: Denies ALLERGIES: No known drug allergies REVIEW OF SYSTEMS Unable to perform, patient uncooperative. PHYSICAL EXAM General Appearance: Well-appearing, appropriately dressed. No apparent distress , no intoxication. HEENT: EOMI, PERRLA, normal ENT inspection, normal voice, TMs normal, pharynx normal. No conjunctival pallor. No photophobia, scleral icterus. Neck: Supple. Trachea midline. No tenderness, rigidity, carotid bruit, stridor , lymphadenopathy, or thyromegaly. Respiratory/Chest: Lungs CTAB. No shortness of breath, chest tenderness, respiratory distress, accessory muscle use. No crackles, rales, rhonchi, stridor , wheezing, dullness Cardiovascular: RRR. S1, S2. No JVD, murmur, bradycardia, tachycardia. Vascular Pulses: Dorsalis-Pedis (R): 2+, Dorsalis-Pedis (L): 2+ Gastrointestinal/Abdominal: Normal bowel sounds. Abdomen soft, non-distended. No tenderness or rebound tenderness. No organomegaly, pulsatile mass, guarding , hernia, hepatomegaly, splenomegaly. Lymphatic: No adenopathy, tenderness. Musculoskeletal/Extremities: Normal inspection. FROM of all extremities, normal capillary refill. Pelvis Stable. No CVA tenderness. No tenderness to extremities, pedal edema, swelling, erythema or deformity. Integumentary: Appropriate color, dry, warm. No cyanosis, erythema, jaundice or rash Neurologic: housefellow II-XII intact. Fully oriented, alert. Appropriate mood/affect. Motor strength 5/5. No appreciable EOM palsy, facial droop or sensory deficit. Past History - Past Medical History Allergies/Adverse Reactions: Allergies Allergy/AdvReac Type Severity Reaction Status Date / Time fish derived Allergy Severe Hives Verified 02/27/18 00:13 No Known Drug Allergies Allergy Unknown Verified 02/27/18 00:13 Fish Allergy Severe Hives Uncoded 02/27/18 00:13 NKDA Allergy Uncoded 02/27/18 00:13 Home Medications: Ambulatory Orders Acyclovir [Zovirax -] 400 mg PO TID #14 tablet 01/25/18 Anemia: No Asthma: No Cancer: No Cardiac Disorders: No CVA: No COPD: No CHF: No Diabetes: No GI Disorders: No Disorders: No HTN: No Hypercholesterolemia: No Kidney Stones: No Liver Disease: Yes (Hep C dx 2005) Seizures: No Thyroid Disease: No - Surgical History Abdominal Surgery: Yes (LT INGUINAL HERNIA) Appendectomy: No Cardiac Surgery: No Cholecystectomy: No Lung Surgery: No Neurologic Surgery: No Orthopedic Surgery: No - Reproductive History Testicular Surgery: No - Suicide/Smoking/Psychosocial Hx Smoking Status: Yes Smoking History: Current every day smoker Have you smoked in the past 12 months: No Number of Cigarettes Smoked Daily: 20 Cigars Per Day: 0 Information on smoking cessation initiated: No 'Breaking Loose' booklet given: 01/22/18 Hx Alcohol Use: No Drug/Substance Use Hx: No Substance Use Type: Heroin Hx Substance Use Treatment: Yes ([facility] 12/28/17 to 12/31/17) *Physical Exam - Vital Signs Last Vital Signs Temp Pulse Resp BP Pulse Ox 87 15 152/96 97 02/27/18 00:13 02/27/18 00:13 02/27/18 00:13 02/27/18 00:13 Medical Decision Making - Medical Decision Making 02/27/18 01:51 42 yo M presents to ED with c/o needle stuck in arm per triage nurse. Patient uncooperative and aggressive. While trying to awaken patient to conduct interview, patient began cursing me out stating "this is fucking crazy, what the fuck do you want me to do." I asked the patient if he would like me to come back later and patient said "I wish you had never fucking talked to me in the first place, that's what the fuck i want."
--- NOTE | 2018-02-27 02:05 | PDOC ---
History of Present Illness - History of Present Illness Initial Comments: 02/27/18 03:08 The patient is a 42 year old male with history of Hepatitis C (on methadone) and cigarette smoking who presents to the ED complaining of pain and swelling of the right hand for an undetermined amount of time. The patient appears to be altered, when asked when patient last used substance, he stated "8 hours prior to presentation". 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 He has been admitted for cellulitis of the hand several times. He is right hand dominant. The patient denies any trauma. He denies any dizziness or shortness of breath. No allergies to medication. <Neftali Castorena - Last Filed: 02/27/18 03:17> - General History Source: Patient <Pb Elizabeth - Last Filed: 02/27/18 19:43> - General Chief Complaint: Foreign Body (FB) Stated Complaint: FOREIGN OBJECT Time Seen by Provider: 02/27/18 01:13 Past History <Neftali Castorena - Last Filed: 02/27/18 03:17> - Past Medical History Anemia: No Asthma: No Cancer: No Cardiac Disorders: No CVA: No COPD: No CHF: No Diabetes: No GI Disorders: No Disorders: No HTN: No Hypercholesterolemia: No Kidney Stones: No Liver Disease: Yes (Hep C dx 2005) Seizures: No Thyroid Disease: No - Surgical History Abdominal Surgery: Yes (LT INGUINAL HERNIA) Appendectomy: No Cardiac Surgery: No Cholecystectomy: No Lung Surgery: No Neurologic Surgery: No Orthopedic Surgery: No - Reproductive History Testicular Surgery: No - Suicide/Smoking/Psychosocial Hx Smoking Status: Yes Smoking History: Current every day smoker Have you smoked in the past 12 months: No Number of Cigarettes Smoked Daily: 20 Cigars Per Day: 0 Information on smoking cessation initiated: No 'Breaking Loose' booklet given: 01/22/18 Hx Alcohol Use: No Drug/Substance Use Hx: No Substance Use Type: Heroin Hx Substance Use Treatment: Yes ([facility] 12/28/17 to 12/31/17) <Pb Elizabeth - Last Filed: 02/27/18 19:43> - Past Medical History Allergies/Adverse Reactions: Allergies Allergy/AdvReac Type Severity Reaction Status Date / Time fish derived Allergy Severe Hives Verified 02/27/18 00:13 No Known Drug Allergies Allergy Unknown Verified 02/27/18 00:13 Fish Allergy Severe Hives Uncoded 02/27/18 00:13 NKDA Allergy Uncoded 02/27/18 00:13 Home Medications: Ambulatory Orders Acyclovir [Zovirax -] 400 mg PO TID #14 tablet 01/25/18 Review of Systems - Review of Systems Able to Perform ROS?: Yes Comments:: 02/27/18 03:17 CONSTITUTIONAL: Absent: fever, no chills, no fatigue EYES: Absent: visual changes ENT: Absent: ear pain, no sore throat CARDIOVASCULAR: Absent: chest pain, no palpitations RESPIRATORY: Absent: cough, no SOB GI: Absent: abdominal pain, no nausea, no vomiting, no constipation, no diarrhea GENITOURINARY: Absent: dysuria, no frequency, no hematuria MUSCULOSKELETAL: +Right hand pain. Absent: back pain,no myalgia SKIN: Absent: rash <Neftali Castorena - Last Filed: 02/27/18 03:17> *Physical Exam - Vital Signs Last Vital Signs Temp Pulse Resp BP Pulse Ox 87 15 152/96 97 02/27/18 00:13 02/27/18 00:13 02/27/18 00:13 02/27/18 00:13 - Physical Exam Comments: GENERAL: +Appears to be somnolent, answers questions and immediately falls asleep. Well-appearing, well-nourished. No apparent distress. HEENT: Normocephalic, atraumatic. PERRL, EOM intact. CARDIOVASCULAR: Normal S1, S2. Regular rate and rhythm. PULMONARY: Clear to auscultation bilaterally. ABDOMEN: Soft, non-distended, non-tender. EXTREMITIES: +swelling erythema to the right hand Normal ROM in all four extremities. SKIN: Warm, dry. No rash NEUROLOGICAL: No focal neurological deficits. + <Neftali Castorena - Last Filed: 02/27/18 03:17> - Vital Signs Last Vital Signs Temp Pulse Resp BP Pulse Ox 87 15 152/96 97 02/27/18 00:13 02/27/18 00:13 02/27/18 00:13 02/27/18 00:13 <Pb Elizabeth - Last Filed: 02/27/18 19:43> Medical Decision Making - Medical Decision Making 02/27/18 19:42 Dr. Elizabeth: The scribe's documentation has been prepared under my direction and personally reviewed by me in its entirery. I confirm that the note above accurately reflects all work, treatment, procedures, and medical decision making performed by me. <Pb Elizabeth - Last Filed: 02/27/18 19:43> *DC/Admit/Observation/Transfer - Attestations Scribe Attestion: 02/27/18 03:18 Documentation prepared by Neftali Castorena, acting as general medical practitioner for Pb Elizabeth MD/DO. <Neftali Castorena - Last Filed: 02/27/18 03:17> - Discharge Dispostion Admit: No <Pb Elizabeth - Last Filed: 02/27/18 19:43> Diagnosis at time of Disposition: Cellulitis of right hand - Discharge Dispostion Disposition: HOME Condition at time of disposition: Stable - Referrals Referrals: ON STAFF,NOT [Primary Care Provider] - - Patient Instructions Printed Discharge Instructions: DI for Cellulitis -- Adult - Post Discharge Activity
== END 2018-02-27 05:36 | disposition home or self-care (01) ==
LOC: JER 00:09
DX: L03.113 Cellulitis of right upper limb (principal); F17.210 Nicotine dependence, cigarettes, uncomplicated; B19.20 Unspecified viral hepatitis C without hepatic coma
CPT/HCPCS: 99281-25

== ENCOUNTER 2018-09-27 13:19 | Inpatient (IN) | payer SELFPAY ==
[2018-09-27 15:46] VITALS: BMI 26.6
--- NOTE | 2018-09-27 20:57 | HP ---
COWS - Scale Resting Pulse: 1= [place] 81-100 Sweatin=Flushed/Facial Moisture Restless Observation: 5= Unable to Sit Still Pupil Size: 0= Normal to Room Light Bone or Joint Aches: 1= Mild Discomfort Runny Nose/ Eye Tearin= None GI Upset > 30mins: 0= None Tremor Observation: 2= Slight Tremor Visible Yawning Observation: 0= None Anxiety or Irritability: 2=Irritable/Anxious Goose Flesh Skin: 0=Smooth Skin COWS Score: 13 CIWA Score - CIWA Score Nausea/Vomitin-No Nausea/No Vomiting Muscle Tremors: 4-Moderate,w/Arms Extend Anxiety: 4-Mod. Anxious/Guarded Agitation: 4-Moderately Restless Paroxysmal Sweats: 4-Forehead w/Sweat Beads Orientation: 0-Oriented Tacttile Disturbances: 0-None Auditory Disturbances: 0-None Visual Disturbances: 0-None Headache: 0-None Present CIWA-Ar Total Score: 16 Admission ROS [facility] - HPI Chief Complaint: xzseeking detox for alcohol with complaint of withdrawal sx's Allergies/Adverse Reactions: Allergies Allergy/AdvReac Type Severity Reaction Status Date / Time fish derived Allergy Severe Hives Verified 09/27/18 19:17 No Known Drug Allergies Allergy Unknown Verified 09/27/18 19:17 Fish Allergy Severe Hives Uncoded 09/27/18 19:17 NKDA Allergy Uncoded 09/27/18 19:17 History of Present Illness: 43 Y.O. MALE WITH REPORTED OPIOID AND ALCOHOL DEPENDENCE HERE FOR DETOX WITH C/ O WITHDRAWAL SX'S. CIWA 16/ COWS 13. CLIENT IS KNOWN TO THIS PROGRAM. LAST HERE 01/2018. DENIES INPATIENT DETOX SINCE. HIS UTOX IS NEGATIVE FOR OPIATES. STATES HE LAST USED THIS MORNING. OFFERED TO HAVE HIM GIVE ANOTHER URINE FOR TESTING. CLIENT DECLINES AND WISHES TO BE DETOXED FROM ALCOHOL. HE IS SELF REFERRED. REPORTS LONGEST CLEAN TIME 2002 X 13 MONTHS. DENIES HX/O SEIZURES, DRUG OVERDOSE , SI/HI, AVH. PMHX- HEPC WITH TXMENT PSYCH- DENIES Exam Limitations: No Limitations - Ebola screening Have you traveled outside of the country in the last 21 days: No Have you had contact with anyone from an Ebola affected area: No Have you been sick,other than usual withdrawal symptoms: No Do you have a fever: No - Review of Systems Constitutional: Chills, Malaise (BACK ACHE), Night Sweats, Changes in sleep, Unintentional Wgt. Loss (15 POUND LOSS IN 1 MONTH CLIENT REPORTS.) EENT: reports: No Symptoms Reported Respiratory: reports: No Symptoms reported Cardiac: reports: No Symptoms Reported GI: reports: Poor Appetite : reports: No Symptoms Reported Musculoskeletal: reports: Back Pain (ACUTE) Integumentary: reports: Flushing, Sweating Neuro: reports: No Symptoms reported Endocrine: reports: No Symptoms Reported Hematology: reports: No Symptoms Reported Psychiatric: reports: Anxious Other Systems: Reviewed and Negative Patient History - Patient Medical History Hx Anemia: No Hx Asthma: No Hx Chronic Obstructive Pulmonary Disease (COPD): No Hx Cancer: No Hx Cardiac Disorders: No Hx Congestive Heart Failure: No Hx Hypertension: No Hx Hypercholesterolemia: No Hx Pacemaker: No HX Cerebrovascular Accident: No Hx Seizures: No Hx Diabetes: No Hx Gastrointestinal Disorders: No Hx Liver Disease: Yes (Hep C dx 2005) Hx Genitourinary Disorders: No Hx Sexually Transmitted Disorders: No Hx Renal Disease (ESRD): No Hx Thyroid Disease: No Hx Human Immunodeficiency Virus (HIV): No (negative) Hx Hepatitis C: Yes (dx 2005) Hx Depression: No Hx Suicide Attempt: No Hx Bipolar Disorder: No Hx Schizophrenia: No - Patient Surgical History Past Surgical History: Yes Hx Neurologic Surgery: No Hx Cataract Extraction: No Hx Cardiac Surgery: No Hx Lung Surgery: No Hx Breast Surgery: No Hx Breast Biopsy: No Hx Abdominal Surgery: Yes (LT INGUINAL HERNIA) Hx Appendectomy: No Hx Cholecystectomy: No Hx Genitourinary Surgery: No Hx Section: No Hx Orthopedic Surgery: No Anesthesia Reaction: No - PPD History Previous Implant?: Yes Documented Results: Positive w/o proof Implanted On Prior [facility] Admission?: No Results: CXR(-)09/21/17 PPD to be Administered?: No - Smoking Cessation Smoking history: Current every day smoker Have you smoked in the past 12 months: No Aproximately how many cigarettes per day: 20 Cigars Per Day: 0 Hx Chewing Tobacco Use: No Initiated information on smoking cessation: Yes 'Breaking Loose' booklet given: 09/27/18 - Substance & Tx. History Hx Alcohol Use: Yes Hx Substance Use: Yes Substance Use Type: Alcohol, Heroin Hx Substance Use Treatment: Yes ([facility]) - Substances Abused Alcohol Route: Oral Frequency: Daily Amount used: 2 PINT VODKA/ 2-6PACK BEER Age of first use: 16 Date of Last Use: 09/27/18 Heroin Route: IV Frequency: Daily Amount used: 5 BAGS Age of first use: 25 Date of Last Use: 09/27/18 Family Disease History - Family Disease History Family Disease History: Diabetes: Grandparent (dec), Father (dec), Other: Mother (alive and well) Admission Physical Exam [facility] - Vital Signs Vital Signs: Vital Signs - 24 hr 09/27/18 15:40 Temperature 97.1 F L Pulse Rate 81 Respiratory 16 Rate Blood Pressure 119/81 - Physical General Appearance: Yes: Appropriately Dressed, Tremorous, Sweating, Anxious, Other (FLUSHED FACE) HEENTM: Yes: EOMI, Normocephalic, Normal Voice, STEPHANIE, Pharynx Normal, Other ( MISSING TEETH) Respiratory: Yes: Chest Non-Tender, Lungs Clear, Normal Breath Sounds, No Respiratory Distress, No Accessory Muscle Use Neck: Yes: No masses,lesions,Nodules, Supple, Trachea in good position Breast: Yes: Breast Exam Deferred Cardiology: Yes: Regular Rhythm, Regular Rate, S1, S2 Abdominal: Yes: Normal Bowel Sounds, Non Tender, Flat, Soft Genitourinary: Yes: Other (NO C/O) Back: Yes: Normal Inspection Musculoskeletal: Yes: Gait Steady Extremities: Yes: Normal Range of Motion, Non-Tender, Tremors Neurological: Yes: Fully Oriented, Alert, Motor Strength 5/5 Integumentary: Yes: Normal Color, Warm, Moist, Track Alcantar (OLD ONE TO RIGHT AC) , Other (FLUSHED) Lymphatic: Yes: Within Normal Limits - Diagnostic (1) Alcohol dependence with uncomplicated withdrawal Current Visit: Yes Status: Acute (2) Drug-induced mood disorder Current Visit: Yes Status: Suspected (3) Insomnia Current Visit: Yes Status: Suspected (4) Substance-induced sleep disorder Current Visit: Yes Status: Suspected (5) Hepatitis C Current Visit: Yes Status: Chronic Qualifiers: Viral hepatitis chronicity: chronic Hepatic coma status: without hepatic coma Qualified Code(s): B18.2 - Chronic viral hepatitis C (6) Low back pain Current Visit: Yes Status: Acute Qualifiers: Chronicity: unspecified Back pain laterality: unspecified (7) Nicotine dependence Current Visit: Yes Status: Chronic Qualifiers: Nicotine product type: cigarettes Substance use status: in withdrawal Qualified Code(s): F17.213 - Nicotine dependence, cigarettes, with withdrawal (8) History of positive PPD Current Visit: Yes Status: Chronic Cleared for Admission [facility] - Detox or Rehab [facility] Level of Care: Medically Managed Detox Regimen/Protocol: Librium Claeared for Rehab Admission: No S Breath Alcohol Content Breath Alcohol Content: 0 Urine Drug Screen - Results Drug Screen Negative: Yes Urine Drug Screen Results: THC-Marijuana, BATOOL-Cocaine, BAR-Barbiturates
[2018-09-27] MEDS ORDERED: MAGNESIUM HYDROX 2400MG/30ML ORAL SUSPENSION 30 ML CUP PO PRN (21:08)
[2018-09-27] MEDS ORDERED: IBUPROFEN 400 MG TABLET (FP) PO PRN (21:08)
[2018-09-27] MEDS ORDERED: MENTHOL/PHENOL 1 EACH UD MM PRN (21:08)
[2018-09-27] MEDS ORDERED: MAG HYDROX/AL HYDROX/SIMETH 30 ML UNIT-DOSE CUP PO PRN (21:08)
[2018-09-27] MEDS ORDERED: MAGNESIUM CITRATE 300 ML BOTTLE PO PRN (21:08)
[2018-09-27] MEDS ORDERED: chlordiazePOXIDE HCL 25 MG CAPSULE PO PRN (21:08)
[2018-09-27] MEDS ORDERED: hydrOXYzine PAMOATE 50 MG CAPSULE (FP) PO PRN (21:08)
[2018-09-27] MEDS ORDERED: NICOTINE POLACRILEX 2 MG GUM BC PRN (21:08)
[2018-09-27] MEDS ORDERED: LOPERAMIDE HCL 2 MG CAPSULE PO PRN (21:08)
[2018-09-27] MEDS ORDERED: P-EPHED 60MG/TRIPROLIDI 2.5MG TABLET PO PRN (21:08)
[2018-09-27] MEDS ORDERED: ACETAMINOPHEN 325 MG TABLET (FP) PO PRN (21:08)
[2018-09-27] MEDS ORDERED: guaiFENesin/D-METHORPHAN HB 10 ML UNIT-DOSE CUPS PO PRN (21:08)
[2018-09-27] MEDS ORDERED: MELATONIN 5 MG TABLETS PO PRN (22:00)
[2018-09-27] MEDS: THIAMINE HCL 100 MG TABLET (FP) PO SCH (22:27)
[2018-09-27] MEDS: chlordiazePOXIDE HCL 25 MG CAPSULE PO SCH (22:27)
[2018-09-27 23:32] LABS: URINE APPEARANCE TURBID; URINE BILIRUBIN NEGATIVE (<2.0 mg/dL); URINE COLOR YELLOW; URINE GLUCOSE (UA) NEGATIVE (NEGATIVE); URINE KETONE 1+ (NEGATIVE); URINE LEUK ESTERASE NEGATIVE (NEGATIVE); URINE NITRITE NEGATIVE (NEGATIVE); URINE PROTEIN 1+ (NEGATIVE); URINE UROBILINOGEN 4.0 E.U/dl mg/dL (0.2-1.0)
[2018-09-27 23:36] LABS: URINE HYALINE CAST 6 /lpf; URINE MUCUS FEW
[2018-09-28] MEDS: chlordiazePOXIDE HCL 25 MG CAPSULE PO SCH ×4 (06:02→22:08)
[2018-09-28 10:18] LABS: HEMATOCRIT 43.6 % (35.4-49); HEMOGLOBIN 15.3 GM/dL (11.7-16.9); MCH 30.8 pg (25.7-33.7); MCHC 35.1 g/dl (32.0-35.9); MEAN CELL VOLUME 87.6 fl (80-96); MEAN PLT VOLUME 8.9 fl (7.5-11.1); PLATELET COUNT 324 K/MM3 (134-434); RBC 4.97 M/mm3 (4.00-5.60); RDW 13.7 % (11.9-15.9); WHITE BLOOD COUNT 9.1 K/mm3 (4.0-10.0)
[2018-09-28] MEDS: PRENATAL VITAMINS W/ FOLIC ACID TABLET (FP) PO SCH (10:30)
[2018-09-28] MEDS: NICOTINE 21 MG/24 HOURS TOPICAL PATCH TD SCH (10:33)
[2018-09-28 11:04] LABS: ALBUMIN 3.6 g/dl (3.4-5.0); ALK PHOS 81 U/L (45-117); ANION GAP 12 MMOL/L (8-16); BILIRUBIN,TOTAL 1.1 mg/dL (0.2-1); BLOOD UREA NITROGEN 12 mg/dL (7-18); CALCIUM 8.2 mg/dL (8.5-10.1); CHLORIDE 103 mmol/L (98-107); CO2 27 mmol/L (21-32); CREATININE 0.7 mg/dL (0.55-1.3); GLUCOSE,RANDOM 106 mg/dL (74-106); POTASSIUM 4.1 mmol/L (3.5-5.1); SGOT/AST 144 U/L (15-37); SGPT/ALT 113 U/L (13-61); SODIUM 142 mmol/L (136-145); TOT PROT 6.5 g/dl (6.4-8.2)
--- NOTE | 2018-09-28 11:56 | PN ---
S CIWA - CIWA Score Nausea/Vomitin-No Nausea/No Vomiting Muscle Tremors: 2 Anxiety: 3 Agitation: 3 Paroxysmal Sweats: 2 Orientation: 0-Oriented Tacttile Disturbances: 0-None Auditory Disturbances: 0-None Visual Disturbances: 0-None Headache: 0-None Present CIWA-Ar Total Score: 10 [facility] Progress Note (SOAP) Subjective: PATIENT C/O ANXIETY, RESTLESSNESS, SWEATING AND SHAKES. Objective: 09/28/18 11:54 Vital Signs Temperature 98.0 F 09/28/18 09:40 Pulse Rate 82 09/28/18 09:40 Respiratory Rate 18 09/28/18 09:40 Blood Pressure 145/84 09/28/18 09:40 O2 Sat by Pulse Oximetry (%) Laboratory Tests 09/27/18 09/28/18 09/28/18 21:32 08:00 08:00 WBC 9.1 RBC 4.97 Hgb 15.3 Hct 43.6 MCV 87.6 MCH 30.8 MCHC 35.1 RDW 13.7 Plt Count 324 MPV 8.9 Sodium 142 Potassium 4.1 Chloride 103 Carbon Dioxide 27 Anion Gap 12 BUN 12 Creatinine 0.7 Creat Clearance w eGFR > 60 Random Glucose 106 Calcium 8.2 L Total Bilirubin 1.1 H AST 144 H ALT 113 H Alkaline Phosphatase 81 Total Protein 6.5 Albumin 3.6 Urine Color Yellow Urine Appearance Turbid Urine pH 5.0 Ur Specific [place] 1.028 Urine Protein 1+ H Urine Glucose (UA) Negative Urine Ketones 1+ H Urine Blood Negative Urine Nitrite Negative Urine Bilirubin Negative Urine Urobilinogen 4.0 e.u/dl Ur Leukocyte Esterase Negative Urine WBC (Auto) 24 Urine RBC (Auto) 1 Hyaline Casts 6 Urine Mucus Few PE: SKIN WARM AND FLUSHED CAR SI S2 RESP CTA BL EXT FULL ROM, AMB AD KALEE +ANXIETY, PACING IN HALLWAY AT TIMES. Assessment: 09/28/18 11:56 WITHDRAWAL SYNDROME Plan: CONTINUE DETOX REGIMEN ENCOURAGE ORAL FLUIDS CHECK AMMONIA LEVEL CONTINUE TO MONITOR
--- NOTE | 2018-09-28 12:25 | EKG ---
Test Reason : Blood Pressure : / mmHG Vent. Rate : 089 BPM Atrial Rate : 089 BPM P-R Int : 174 ms QRS Dur : 090 ms QT Int : 390 ms P-R-T Axes : 071 071 044 degrees QTc Int : 474 ms NORMAL SINUS RHYTHM NORMAL ECG WHEN COMPARED WITH ECG OF 22-JAN-2018 19:07, NO SIGNIFICANT CHANGE WAS FOUND Confirmed by RAYMOND GONSALVES MD ([id number]) on 09/28/2018 12:24:34 PM Referred By: Confirmed By:RAYMOND GONSALVES MD
--- NOTE | 2018-09-28 18:22 | CONSULT ---
[facility] Psychiatric Consult - Data Date of interview: 09/28/18 Admission source: [facility] Identifying data: Readmission to [facility] for this 43 y/o male seeking detoxification treatment on for cocaine, alcohol and heroin dependence. Patient is single, a father of one, homeless (just released from senior living, as per own account), unemployed and supported on emergengy food stamps. Substance Abuse History: Confirmed by the patient in this session. Details in current [facility] report : Smoking history: Current every day smoker. Have you smoked in the past 12 months: No. Aproximately how many cigarettes per day: 20. Cigars Per Day: 0. Hx Chewing Tobacco Use: No. Initiated information on smoking cessation: Yes. 'Breaking Loose' booklet given: 09/27/18. - Substance & Tx. History. Hx Alcohol Use: Yes. Hx Substance Use: Yes. Substance Use Type : Alcohol, Heroin. Hx Substance Use Treatment: Yes ([facility]). - Substances Abused. Alcohol. Route: Oral. Frequency: Daily. Amount used: 2 PINT VODKA / 2-6PACK BEER. Age of first use: 16. Date of Last Use: 09/27/18. Heroin. Route: IV. Frequency: Daily. Amount used: 5 BAGS. Age of first use: 25. Date of Last Use: 09/27/18 Medical History: History of cellulitis (both hands), hepatitis C, left inguinal hernia and a history of positive PPD. At this time, the patient endorses good general health. Psychiatric History: Patient denies history of psychiatric hospitalizations, OPD care or antecedent of suicide attempts. Insomnia was reportedly managed with seroquel 25 mg/hs during recent incarceration. Physical/Sexual Abuse/Trauma History: Patient denies. Additional Comment: Urine Drug Screen Results: THC-Marijuana, BATOOL-Cocaine, BAR- Barbiturates. Noted. Mental Status Exam - Mental Status Exam Alert and Oriented to: Time, Place, Person Cognitive Function: Good Patient Appearance: Well Groomed (tattoos on left side of neck, right forearm) Mood: Hopeful, Euthymic Affect: Appropriate, Normal Range Patient Behavior: Cooperative Speech Pattern: Clear, Appropriate Voice Loudness: Normal Thought Process: Intact, Goal Oriented Thought Disorder: Not Present Hallucinations: Denies Suicidal Ideation: Denies Homicidal Ideation: Denies Insight/Judgement: Poor Sleep: Poorly, Difficulty falling asleep Appetite: Good Muscle strength/Tone: Normal Gait/Station: Normal Psychiatric Findings - Problem List ([place] 1, 2,3) (1) Opioid dependence with withdrawal Current Visit: Yes Status: Acute (2) Alcohol dependence with uncomplicated withdrawal Current Visit: Yes Status: Acute (3) Cocaine dependence Current Visit: Yes Status: Acute (4) Cannabis abuse Current Visit: Yes Status: Acute (5) Nicotine dependence Current Visit: Yes Status: Acute Qualifiers: Nicotine product type: cigarettes Substance use status: in withdrawal Qualified Code(s): F17.213 - Nicotine dependence, cigarettes, with withdrawal (6) Substance induced mood disorder Current Visit: Yes Status: Acute (7) Insomnia Current Visit: Yes Status: Acute - Initial Treatment Plan Initial Treatment Plan: Psychoeducation. Sleep hygiene. Detoxification in progress. Psychotherapy (individual, group, supportive). Relapse prevention revisited with the patient (FDA-approved formulations to foster abstinence : naltrexone, buprenorphine maintenance). AA/NA meetings recommended to the patient. Verbalizes marginal interest. Preoccupied, instead, with idea of immediate employment. Seroquel 25 mg po hs is resumed at patient's specific request. Side effects/benefits discussed. Observation.
[2018-09-28] MEDS ORDERED: QUEtiapine FUMARATE 25 MG TABLET (FP) PO SCH (22:00)
[2018-09-28] MEDS: THIAMINE HCL 100 MG TABLET (FP) PO SCH (22:08)
[2018-09-29] MEDS: chlordiazePOXIDE HCL 25 MG CAPSULE PO SCH ×3 (05:52→17:43)
[2018-09-29] MEDS: PRENATAL VITAMINS W/ FOLIC ACID TABLET (FP) PO SCH (10:42)
--- NOTE | 2018-09-29 10:56 | PN ---
[facility] CIWA - CIWA Score Nausea/Vomitin-No Nausea/No Vomiting Muscle Tremors: 3 Anxiety: 2 Agitation: 2 Paroxysmal Sweats: 1-Minimal Palms Moist Orientation: 0-Oriented Tacttile Disturbances: 0-None Auditory Disturbances: 0-None Visual Disturbances: 0-None Headache: 0-None Present CIWA-Ar Total Score: 8 S Progress Note (SOAP) Subjective: feeling better today right inguinal hernia 2/10 pain ambulating on [address] denies constipation no diarrhea, has left inquinal hernia surgically repaired 2007 doing well and plan to have the surgery after rehab health teaching on risks of untreated inquinal hernia Objective: 09/29/18 11:01 Vital Signs Temperature 96.3 F L 09/29/18 09:31 Pulse Rate 79 09/29/18 09:31 Respiratory Rate 18 09/29/18 09:31 Blood Pressure 152/104 H 09/29/18 09:31 O2 Sat by Pulse Oximetry (%) Laboratory Last Values WBC 9.1 K/mm3 (4.0-10.0) 09/28/18 08:00 RBC 4.97 M/mm3 (4.00-5.60) 09/28/18 08:00 Hgb 15.3 GM/dL (11.7-16.9) 09/28/18 08:00 Hct 43.6 % (35.4-49) 09/28/18 08:00 MCV 87.6 fl (80-96) 09/28/18 08:00 MCH 30.8 pg (25.7-33.7) 09/28/18 08:00 MCHC 35.1 g/dl (32.0-35.9) 09/28/18 08:00 RDW 13.7 % (11.9-15.9) 09/28/18 08:00 Plt Count 324 K/MM3 (134-434) 09/28/18 08:00 MPV 8.9 fl (7.5-11.1) 09/28/18 08:00 Sodium 142 mmol/L (136-145) 09/28/18 08:00 Potassium 4.1 mmol/L (3.5-5.1) 09/28/18 08:00 Chloride 103 mmol/L (98-107) 09/28/18 08:00 Carbon Dioxide 27 mmol/L (21-32) 09/28/18 08:00 Anion Gap 12 MMOL/L (8-16) 09/28/18 08:00 BUN 12 mg/dL (7-18) 09/28/18 08:00 Creatinine 0.7 mg/dL (0.55-1.3) 09/28/18 08:00 Creat Clearance w eGFR > 60 (>60) 09/28/18 08:00 Random Glucose 106 mg/dL (74-106) 09/28/18 08:00 Calcium 8.2 mg/dL (8.5-10.1) L 09/28/18 08:00 Total Bilirubin 1.1 mg/dL (0.2-1) H 09/28/18 08:00 AST 144 U/L (15-37) H 09/28/18 08:00 ALT 113 U/L (13-61) H 09/28/18 08:00 Alkaline Phosphatase 81 U/L (45-117) 09/28/18 08:00 Ammonia 75.00 umol/L (11-32) H 09/29/18 07:44 Total Protein 6.5 g/dl (6.4-8.2) 09/28/18 08:00 Albumin 3.6 g/dl (3.4-5.0) 09/28/18 08:00 Urine Color Yellow 09/27/18 21:32 Urine Appearance Turbid 09/27/18 21:32 Urine pH 5.0 (5.0-8.0) 09/27/18 21:32 Ur Specific Archbold 1.028 (1.010-1.035) 09/27/18 21:32 Urine Protein 1+ (NEGATIVE) H 09/27/18 21:32 Urine Glucose (UA) Negative (NEGATIVE) 09/27/18 21: Urine Ketones 1+ (NEGATIVE) H 09/27/18 21:32 Urine Blood Negative (NEGATIVE) 09/27/18 21: Urine Nitrite Negative (NEGATIVE) 09/27/18 21: Urine Bilirubin Negative (<2.0 mg/dL) 09/27/18 21: Urine Urobilinogen 4.0 e.u/dl mg/dL (0.2-1.0) 09/27/18 21:32 Ur Leukocyte Esterase Negative (NEGATIVE) 09/27/18 21:32 Urine WBC (Auto) 24 /hpf (3-5) 09/27/18 21:32 Urine RBC (Auto) 1 /hpf (0-3) 09/27/18 21:32 Hyaline Casts 6 /lpf 09/27/18 21:32 Urine Mucus Few 09/27/18 21:32 RPR Titer Nonreactive (NONREACTIVE) 09/28/18 08:00 lab noted Assessment: 09/29/18 11:03 withdrawal sx Plan: continue detox
[2018-09-29] MEDS ORDERED: LACTULOSE 20 GM/30 ML UDC (FOR ORAL USE ONLY) PO PRN (11:02)
[2018-09-29 17:50] VITALS: BP 137/96; PULSE 98; TEMP 97.7
--- NOTE | 2018-09-29 18:48 | PN ---
[facility] Progress Note Note: Was called to the floor because pt wanted to leave. Pt repeated that he wants to leave because his uncle passed,sounds irritable and not receptive to advise to stay to complete detox. Pt's ammonia level is high, declines prescription for lctulose stating 'i am fine and dont need anything. If you send it I wont pick it up". Pt A & O x 3 at this time, walking steadily on the floor, chatting animatedly with a female patient, no signs of acute distress. Pt will sign out AMA.
--- NOTE | 2018-09-29 18:49 | DS ---
[facility] Detox Discharge Summary Admission Date: 09/27/18 Discharge Date: 09/29/18 - History Additional Comments: pls see progress note - Physical Exam Results Vital Signs: Vital Signs Temperature 97.7 F 09/29/18 17:49 Pulse Rate 98 H 09/29/18 17:49 Respiratory Rate 18 09/29/18 17:49 Blood Pressure 137/96 09/29/18 17:49 O2 Sat by Pulse Oximetry (%) - Medication Discharge Medications: Ambulatory Orders NK [No Known Home Medication] 09/27/18 - Diagnosis (1) Alcohol dependence with uncomplicated withdrawal Current Visit: Yes Status: Acute (2) Cannabis abuse Current Visit: Yes Status: Acute (3) Cocaine dependence Current Visit: Yes Status: Acute (4) Insomnia Current Visit: Yes Status: Acute (5) Low back pain Current Visit: Yes Status: Acute Qualifiers: Chronicity: unspecified Back pain laterality: unspecified (6) Nicotine dependence Current Visit: Yes Status: Acute Qualifiers: Nicotine product type: cigarettes Substance use status: in withdrawal Qualified Code(s): F17.213 - Nicotine dependence, cigarettes, with withdrawal (7) Opioid dependence with withdrawal Current Visit: Yes Status: Acute (8) Substance induced mood disorder Current Visit: Yes Status: Acute (9) Hepatitis C Current Visit: Yes Status: Chronic Qualifiers: Viral hepatitis chronicity: chronic Hepatic coma status: without hepatic coma Qualified Code(s): B18.2 - Chronic viral hepatitis C (10) Drug-induced mood disorder Current Visit: Yes Status: Suspected (11) Substance-induced sleep disorder Current Visit: Yes Status: Suspected (12) PPD positive, treated Current Visit: Yes Status: Resolved (13) Cellulitis of left hand Current Visit: No Status: Acute - AMA Did Patient Leave Against Medical Advice: Yes
[2018-09-29] MEDS: NICOTINE 21 MG/24 HOURS TOPICAL PATCH TD SCH (19:12)
[2018-09-29] MEDS ORDERED: chlordiazePOXIDE 5 MG CAPSULE PO SCH (23:00)
[2018-09-30] MEDS ORDERED: chlordiazePOXIDE HCL 10 MG CAPSULE PO SCH (23:00)
== END 2018-09-29 19:43 | disposition left against medical advice (07) | DRG 770 ==
LOC: YASAS 13:19 → Y6N 19:43
PROC: HZ2ZZZZ Detoxification Services for Substance Abuse Treatment (ICD-10-PCS; principal; 2018-09-27)
DX: F11.23 Opioid dependence with withdrawal (principal); F10.230 Alcohol dependence with withdrawal, uncomplicated; F14.20 Cocaine dependence, uncomplicated; F12.10 Cannabis abuse, uncomplicated; F17.213 Nicotine dependence, cigarettes, with withdrawal; F19.24 Other psychoactive substance dependence with psychoactive substance-induced mood disorder; F19.282 Other psychoactive substance dependence with psychoactive substance-induced sleep disorder; G47.00 Insomnia, unspecified; B18.2 Chronic viral hepatitis C; L03.114 Cellulitis of left upper limb; M54.5 Low back pain; K40.90 Unilateral inguinal hernia, without obstruction or gangrene, not specified as recurrent
CPT/HCPCS: 36415; 80053; 81003; 81015; 82140; 85027; 86593; 93005; 93010

== ENCOUNTER 2018-10-02 08:38 | Emergency (ER) | payer SELFPAY ==
[2018-10-02 08:57] VITALS: BMI 26.6
[2018-10-02] MEDS ORDERED: ALBUTEROL SO4 2.5/IPRATROPIUM 0.5 INH SOL 3 ML VIAL.NEB. NEB ONE ×2 (09:47→09:50)
[2018-10-02] MEDS ORDERED: IBUPROFEN 600 MG TABLET (FP) PO ONE ×2 (09:49→09:51)
[2018-10-02 10:27] LABS: BASO % 1.5 % (0-2.0); EOS % 6.7 % (0-4.5); HEMATOCRIT 41.4 % (35.4-49); HEMOGLOBIN 14.1 GM/dL (11.7-16.9); LYMPH % 30.1 % (8-40); MCH 29.5 pg (25.7-33.7); MCHC 34.1 g/dl (32.0-35.9); MEAN CELL VOLUME 86.5 fl (80-96); MEAN PLT VOLUME 8.4 fl (7.5-11.1); MONO % 12.6 % (3.8-10.2); NEUT % 49.1 % (42.8-82.8); PLATELET COUNT 307 K/MM3 (134-434); RBC 4.79 M/mm3 (4.00-5.60); WHITE BLOOD COUNT 7.6 K/mm3 (4.0-10.0)
--- NOTE | 2018-10-02 10:35 | PDOC ---
History of Present Illness - General Chief Complaint: Wound Stated Complaint: DIFFICULTY BREATHING,ALLERGIC REACTION Time Seen by Provider: 10/02/18 09:12 History Source: Patient Exam Limitations: No Limitations - History of Present Illness Initial Comments: 10/02/18 10:35 Anguiano 43 YOM with h/o inguinal hernia s/p repair, Hepatitis C (on methadone) and cigarette smoking, polysubstance abuse, ETOH dependence presenting with 3-4 days of generalized malaise, productive green cough, sore throat and difficulty swallowing, CP and SOB with coughing episodes. +right hand swelling and tingling sensation, no warmth or tenderness, fever or chills. Denies trauma. 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 No known sick contacts or travel 10/02/18 12:16 Past History - Past Medical History Allergies/Adverse Reactions: Allergies Allergy/AdvReac Type Severity Reaction Status Date / Time fish derived Allergy Severe Hives Verified 10/02/18 08:57 No Known Drug Allergies Allergy Unknown Verified 10/02/18 08:57 Fish Allergy Severe Hives Uncoded 10/02/18 08:57 NKDA Allergy Uncoded 10/02/18 08:57 Home Medications: Ambulatory Orders Albuterol Sulfate Inhaler - [Ventolin Hfa Inhaler -] 1 - 2 inh PO QID #1 inhaler 10/02/18 Anemia: No Asthma: No Cancer: No Cardiac Disorders: No CVA: No COPD: No CHF: No DVT: No Diabetes: No GI Disorders: No Disorders: No HTN: No Hypercholesterolemia: No Kidney Stones: No Liver Disease: Yes (Hep C dx 2005) Seizures: No Thyroid Disease: No - Surgical History Abdominal Surgery: Yes (LT INGUINAL HERNIA) Appendectomy: No Cardiac Surgery: No Cholecystectomy: No Lung Surgery: No Neurologic Surgery: No Orthopedic Surgery: No - Reproductive History Testicular Surgery: No - Suicide/Smoking/Psychosocial Hx Smoking Status: Yes Smoking History: Former smoker Have you smoked in the past 12 months: Yes Number of Cigarettes Smoked Daily: 20 If you are a former smoker, when did you quit?: 2018 Cigars Per Day: 0 Information on smoking cessation initiated: Yes 'Breaking Loose' booklet given: 10/02/18 Hx Alcohol Use: No Drug/Substance Use Hx: No Substance Use Type: Alcohol, Heroin Hx Substance Use Treatment: Yes ([facility]) *Physical Exam - Vital Signs Last Vital Signs Temp Pulse Resp BP Pulse Ox 98 F 90 18 127/75 100 10/02/18 08:55 10/02/18 08:55 10/02/18 08:55 10/02/18 08:55 10/02/18 08:55 - Physical Exam Comments: 10/02/18 10:36 General: Well appearing, awake and alert, NAD. HEENT: NCAT, PERRL, EOMI, clear conjunctiva, anicteric, moist mucus membranes, clear oropharynx, no oral lesions.. Neck: neck supple, FROM Resp: CTAB, normal and even respirations, no respiratory distress CVS: RRR, no murmurs, 2+ peripheral pulses throughout, no peripheral edema Abdomen: soft, NTND, no peritoneal signs. Back: nontender, normal inspection and ROM MSK: SPENCER x4, ROM intact. No clubbing or cyanosis. normal bulk and tone. sensation grossly intact in median/radial/ulnar distribution. 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 2+ radialis pulses bilaterally and symmetric. no tenderness along deep venous system. +soft compartment of right hand, nontender dorsum with nonpitting edema, FROM in hand and wrist. Neuro: alert, oriented appropriately; no focal neurologic deficits Skin: warm and well perfused, cap refill <2 sec, normal color, no fluctuance or warmth. no collection palpated. no track head 10/02/18 12:25 Heart Score/ECG Review - ECG Impressions Normal ECG: Yes Comment:: 10/02/18 10:35 EKG sinus rhythm, normal intervals, no ST segment or T wave derangements, normal QRS ED Treatment Course - LABORATORY CBC & Chemistry Diagram: 10/02/18 10:00 10/02/18 10:00 - RADIOLOGY Radiology Studies Ordered: Category Date Time Status CHEST PA & LAT [RAD] Stat Radiology 10/02/18 09:46 Ordered Medical Decision Making - Medical Decision Making 10/02/18 12:16 Anguiano 43 YOM with polysubstance abuse, inguinal hernia p/w right hand swelling , viral syndrome x 3-4 days. no trauma or fever/chill Vitals normal, no fever, normal sats. Well appearing, NAD. EKG sinus rhythm, normal intervals, no ST segment or T wave derangements, normal QRS CXR clear, no pna Labs and lytes wnl, reassuring, baseline LFT elevation/transaminitis w/h/o hep c and etoh use related. ESR/CRP normal. Less likely inflammatory/infectious. Neg strep and neg flu test. More likely viral illness. Doubt myocarditis or pericarditis, more likely pleurisy vs URI/viral syndrome, with neg CXR, Right hand w/o focal area of tenderness or s/s infection/trauma, soft compartment, unlikely compartment with exam, NVI. XR hand with no acute fx, soft tissue swelling with sclerotic changes Denies IVDU, but has extensive detox and drug use history and no track head noted, but pt does not endorse shooting into his hand. Given nebs for cough, with improvement, analgesia with relief. Hand f/u with Dr. Yoon given PCP referrals as well. Discharge: Pt to be discharged in stable condition. Patient and family made aware of impression and plan, return precautions discussed (including but not limited to worsening pain or symptoms), fevers, or signs of infection, chest pain, respiratory distress, inability to tolerate oral intake, dehydration, syncope, or neurologic changes). Follow up with PMD and/or specialist as recommended, follow up information provided, take medications as instructed for duration of time. continue with supportive care, avoid triggers and precipitants. All questions answered to patient's satisfaction and expressed understanding and comfort with this. 10/02/18 12:19 *DC/Admit/Observation/Transfer Diagnosis at time of Disposition: Transaminitis, Viral syndrome, Swelling of right hand - Discharge Dispostion Disposition: HOME Condition at time of disposition: Improved Decision to Admit order: No - Prescriptions Prescriptions: Albuterol Sulfate Inhaler - [Ventolin Hfa Inhaler -] 1 - 2 inh PO QID #1 inhaler - Referrals Referrals: Rudolph Yoon MD [Staff Physician] - [facility] [Provider Group] [facility] [Provider Group] John Galindo MD [Staff Physician] - - Patient Instructions Printed Discharge Instructions: DI for Hand Pain, DI for Viral Upper Respiratory Infection -- Adult, DI for Viral Pharyngitis Additional Instructions: Your laboratory / imaging results were normal, liver enzymes are elevated given your history of hepatitis and alcohol use chest x ray negative for pneumonia flu test and strep test were all negative Follow up with your physician and consultants as instructed, take your medications as instructed including albuterol inhaler every 6 hours as needed for your cough which is most likely viral in etiology you are given primary care referrals to followup you are also given a hand surgeon for your hand pain and swelling, Dr. Yoon. if signs of infection develop or trauma, return sooner for evaluation, but right now unclear etiology as to why it is swollen. your x ray of the hand showed swelling of soft tissue and degenerative bony changes, so please follow up and avoid further trauma. Return if worsening symptoms including fevers, headache, vomiting, visual or hearing disturbances, abdominal pain, chest pain, shortness of breath, syncope, dehydration, inability to take things by mouth/vomiting, altered mental status, or worsening concerning symptoms. your medications on discharge include_ side effects may include upset stomach, abdominal pain, vomiting, or diarrhea. do not drink alcohol with your medications. - Post Discharge Activity
[2018-10-02 10:55] LABS: ALBUMIN 3.9 g/dl (3.4-5.0); ALK PHOS 79 U/L (45-117); ANION GAP 8 MMOL/L (8-16); BILIRUBIN,TOTAL 1.2 mg/dL (0.2-1); BLOOD UREA NITROGEN 16 mg/dL (7-18); CALCIUM 8.2 mg/dL (8.5-10.1); CHLORIDE 101 mmol/L (98-107); CO2 30 mmol/L (21-32); CREATININE 0.6 mg/dL (0.55-1.3); GLUCOSE,RANDOM 85 mg/dL (74-106); POTASSIUM 4.5 mmol/L (3.5-5.1); SGOT/AST 106 U/L (15-37); SGPT/ALT 150 U/L (13-61); SODIUM 139 mmol/L (136-145)
[2018-10-02 11:23] LABS: ERYTHROCYTE SEDIMENTATION RATE 3 mm/hr (0-10)
[2018-10-02 11:28] VITALS: PULSE 82
[2018-10-02 12:42] VITALS: BP 119/73; TEMP 98.2
--- NOTE | 2018-10-02 13:55 | EKG ---
Test Reason : Blood Pressure : / mmHG Vent. Rate : 073 BPM Atrial Rate : 073 BPM P-R Int : 176 ms QRS Dur : 088 ms QT Int : 434 ms P-R-T Axes : 061 063 029 degrees QTc Int : 478 ms NORMAL SINUS RHYTHM POSSIBLE LEFT ATRIAL ENLARGEMENT BORDERLINE ECG WHEN COMPARED WITH ECG OF 27-SEP-2018 21:18, NO SIGNIFICANT CHANGE WAS FOUND Confirmed by FRANCISCA GARCIA MD ([id number]) on 10/02/2018 1:55:24 PM Referred By: Confirmed By:FRANCISCA GARCIA MD
== END 2018-10-02 12:43 | disposition home or self-care (01) ==
LOC: JER 08:38
PROC: 3E0F7GC Introduction of Other Therapeutic Substance into Respiratory Tract, Via Natural or Artificial Opening (ICD-10-PCS; principal; 2018-10-02)
DX: R74.0 Nonspecific elevation of levels of transaminase and lactic acid dehydrogenase [LDH] (principal); J02.9 Acute pharyngitis, unspecified; Z87.891 Personal history of nicotine dependence; B19.20 Unspecified viral hepatitis C without hepatic coma
CPT/HCPCS: 36415; 71046-TC-FY; 73130-TC-RT-FY; 80053; 85025; 85651; 86140; 87070; 87430; 87804; 93005; 93010; 99282-25

== ENCOUNTER 2019-02-24 23:05 | Inpatient (IN) | payer OTHER ==
--- NOTE | 2019-02-24 23:28 | PDOC ---
History of Present Illness - General Stated Complaint: SWELLING Time Seen by Provider: 02/24/19 23:19 History Source: Patient Exam Limitations: No Limitations - History of Present Illness Initial Comments: 43 yo M w a pmh of Hep C and multiple bouts of cellulitis presents to the ER with Right hand erythema, swelling, and pain. He also has right foot erythema, swelling and pain. Additionally there are scattered lesions on his right leg which are concerning the patient. The patient's right arm and right foot are in extreme pain. He states that he was living in a assisted and then his insurance stopped paying for it. He was brought to the hospital to stop the infection and help manage his pain. He has not received any antibiotics for the past 45 days. Denies systemic fevers. PCP: Main Hanson PSH: bilateral inguinal hernia repair Social Hx: Smokes cigarettes, recreational alcohol, former IVDU. Denies other drugs at present time. Has not used IV drugs since 2014 Allergies: Fish, NKDA Past History - Past Medical History Allergies/Adverse Reactions: Allergies Allergy/AdvReac Type Severity Reaction Status Date / Time fish derived Allergy Severe Hives Verified 10/02/18 08:57 No Known Drug Allergies Allergy Unknown Verified 10/02/18 08:57 Fish Allergy Severe Hives Uncoded 10/02/18 08:57 NKDA Allergy Uncoded 10/02/18 08:57 Home Medications: Ambulatory Orders Albuterol Sulfate Inhaler - [Ventolin Hfa Inhaler -] 1 - 2 inh PO QID #1 inhaler 10/02/18 Anemia: No Asthma: No Cancer: No Cardiac Disorders: No CVA: No COPD: No CHF: No DVT: No Diabetes: No GI Disorders: No Disorders: No HTN: No Hypercholesterolemia: No Kidney Stones: No Liver Disease: Yes (Hep C dx 2005) Seizures: No Thyroid Disease: No - Surgical History Abdominal Surgery: Yes (LT INGUINAL HERNIA) Appendectomy: No Cardiac Surgery: No Cholecystectomy: No Lung Surgery: No Neurologic Surgery: No Orthopedic Surgery: No - Reproductive History Testicular Surgery: No - Suicide/Smoking/Psychosocial Hx Smoking Status: Yes Smoking History: Former smoker Have you smoked in the past 12 months: Yes Number of Cigarettes Smoked Daily: 20 If you are a former smoker, when did you quit?: 2018 Cigars Per Day: 0 'Breaking Loose' booklet given: 10/02/18 Hx Alcohol Use: No Drug/Substance Use Hx: No Substance Use Type: Alcohol, Heroin Hx Substance Use Treatment: Yes ([facility]) Review of Systems - Review of Systems Able to Perform ROS?: Yes Comments:: CONSTITUTIONAL: Present: Chills Absent: fever, no fatigue EYES: Absent: visual changes ENT: Absent: ear pain, no sore throat CARDIOVASCULAR: Absent: chest pain, no palpitations RESPIRATORY: Absent: cough, no SOB GI: Absent: abdominal pain, no nausea, no vomiting, no constipation, no diarrhea GENITOURINARY: Absent: dysuria, no frequency, no hematuria MUSKULOSKELETAL: Absent: back pain, no arthralgia, no myalgia SKIN: Present: rash NEURO: Absent: headache *Physical Exam - Physical Exam Comments: RIGHT HAND: The entire hand and chcf up the forearm is warm erythematous and TTP. RIGHT FOOT: There are multiple abrasions on the right foot. The right sole is erythematous, swollen, and TTP. GENERAL: Patient is in distress secondary to pain. Well-appearing, well-nourished. HEENT: Normocephalic, atraumatic. PERRL, EOM intact. CARDIOVASCULAR: Tachycardic rate, regular rhythym. Normal S1, S2. PULMONARY: No evidence of respiratory distress. Lungs clear to auscultation bilaterally. No wheezing, rales or rhonchi. ABDOMEN: Soft, non-distended, non-tender. EXTREMITIES: Normal ROM in all four extremities. SKIN: There are multiple scratches on the left arm and track head. Warm, dry. NEUROLOGICAL: No focal neurological deficits. ED Treatment Course - LABORATORY CBC & Chemistry Diagram: 02/24/19 11:51 02/24/19 11:51 Medical Decision Making - Medical Decision Making 43 yo M w a pmh of Hep C and multiple bouts of cellulitis presents to the ER with Right hand erythema, swelling, and pain. He also has right foot erythema, swelling and pain. Additionally there are scattered lesions on his right leg which are concerning the patient. The patient's right arm and right foot are in extreme pain. He states that he was living in a assisted and then his insurance stopped paying for it. He was brought to the hospital to stop the infection and help manage his pain. He has not received any antibiotics for the past 45 days. Denies systemic fevers. VS: Tachy DDx IBNLT: Cellulitis, Necrotizing fasciitis, erysipilas, MRSA, fungal infection. Plan: Septic workup, Abx, fluids, Admit for cellulitis and IV abx *DC/Admit/Observation/Transfer Diagnosis at time of Disposition: Cellulitis of right hand, Swelling of right hand, Hepatitis C, Cellulitis of right foot - Discharge Dispostion Condition at time of disposition: Guarded Decision to Admit order: Yes - Referrals - Patient Instructions - Post Discharge Activity
[2019-02-24] MEDS ORDERED: SODIUM CHLORIDE 0.9% 500 ML INFUS.BAG IV ONE (23:29)
--- NOTE | 2019-02-24 23:35 | PDOC ---
Attending Attestation - HPI HPI: 02/24/19 23:55 The patient is a 43 year old male, with a significant past medical history of Hep C, polysubstance abuse, and multiple bouts of cellulitis, who presents to the emergency department with, right hand and right foot pain with associated erythema and swelling. He denies any recent fevers, chills, headache or dizziness. He denies any recent nausea, vomit, diarrhea or constipation. He denies any recent chest pain or shortness of breath. He denies any recent dysuria, frequency, urgency or hematuria. Allergies: Fish. Past surgical history: Inguinal hernia repair. Calcaneus surgery. Social History: Smokes cigarettes, recreational alcohol, former IV drug usage. Primary Care Physician: Dr. Main Hanson - Physicial Exam PE: 02/24/19 23:56 Agree with resident exam. <Shelly Valles - Last Filed: 02/24/19 23:55> - Resident Resident Name: Manpreet Sanchez - ED Attending Attestation I have performed the following: I have examined & evaluated the patient, The case was reviewed & discussed with the resident, I agree w/resident's findings & plan - Medical Decision Making 02/25/19 00:44 6 43-year-old male with pain and swelling to the right foot and right hand with recent foot infection status post calcaneal fracture Clindamycin 600 mg IV for MRSA coverage Admission to the hospital. 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 <Shelly Valles - Last Filed: 02/24/19 23:55>
[2019-02-25] MEDS ORDERED: ONDANSETRON 4 MG/2 ML VIAL IVPUSH ONE (00:05)
[2019-02-25] MEDS ORDERED: morphine CARPU-JECT 4 MG/1 ML DISP.SYRIN IVPUSH ONE (00:05)
[2019-02-25 00:07] LABS: BASO % 0.8 % (0-2.0); EOS % 1.6 % (0-4.5); HEMATOCRIT 41.6 % (35.4-49); HEMOGLOBIN 14.4 GM/dL (11.7-16.9); LYMPH % 18.4 % (8-40); MCH 29.2 pg (25.7-33.7); MCHC 34.6 g/dl (32.0-35.9); MEAN CELL VOLUME 84.5 fl (80-96); MEAN PLT VOLUME 8.5 fl (7.5-11.1); MONO % 7.7 % (3.8-10.2); NEUT % 71.5 % (42.8-82.8); PLATELET COUNT 348 K/MM3 (134-434); RBC 4.92 M/mm3 (4.00-5.60); RDW 13.5 % (11.9-15.9); WHITE BLOOD COUNT 15.3 K/mm3 (4.0-10.0)
[2019-02-25 00:18] VITALS: BMI 28.1
[2019-02-25] MEDS ORDERED: ONDANSETRON 4 MG/2 ML VIAL ONE (00:22)
[2019-02-25] MEDS ORDERED: morphine SULFATE 4 MG/ML VIAL ONE (00:22)
[2019-02-25 00:26] LABS: INR 1.12 (0.83-1.09); PROTHROMBIN TIME (PATIENT) 13.2 SEC (9.7-13.0)
[2019-02-25 00:28] LABS: ACTIVATED PTT 31.1 SECONDS (25.2-36.5)
[2019-02-25 00:40] LABS: ALBUMIN 3.5 g/dl (3.4-5.0); ALK PHOS 99 U/L (45-117); ANION GAP 8 MMOL/L (8-16); BILIRUBIN,TOTAL 1.2 mg/dL (0.2-1); BLOOD UREA NITROGEN 8 mg/dL (7-18); CALCIUM 8.4 mg/dL (8.5-10.1); CHLORIDE 97 mmol/L (98-107); CO2 29 mmol/L (21-32); CREATININE 0.6 mg/dL (0.55-1.3); GLUCOSE,RANDOM 119 mg/dL (74-106); POTASSIUM 3.3 mmol/L (3.5-5.1); SGOT/AST 84 U/L (15-37); SGPT/ALT 80 U/L (13-61); SODIUM 134 mmol/L (136-145); TOT PROT 6.8 g/dl (6.4-8.2)
[2019-02-25] MEDS ORDERED: SODIUM CHLORIDE 0.9% 500 ML INFUS.BAG IV ONE (00:42)
[2019-02-25] MEDS ORDERED: VANCOMYCIN 1,000 MG in DEXTROSE 5%-WATER - 250 ML IVPB ONE (00:42)
[2019-02-25] MEDS ORDERED: CLINDAMYCIN 600MG PREMIX IVPB 600 MG/50 ML BAG IVPB ONE ×2 (00:44→00:59)
[2019-02-25] MEDS ORDERED: VANCOMYCIN 1 GRAM (PRE-DOCKED) 1,000 MG/250 ML BAG IVPB ONE (00:58)
[2019-02-25] MEDS ORDERED: POTASSIUM CHLORIDE TABS 20 MEQ TABLET.ER (FP) PO ONE ×2 (01:23→02:25)
--- NOTE | 2019-02-25 02:03 | HP ---
Admitting History and Physical - Primary Care Physician PCP: Main Hanson - Admission Chief Complaint: Right Hand/ Right Foot Swelling, Redness, Pain History of Present Illness: This is a 43 y/o man with a past medical history of Polysubstance Abuse (Alcohol , Cocaine, Heroin, Opiates) last Detox treatment 09/27/18 at [facility] [place], Multiple episodes of Cellulitis. Who presents to the ED with right hand/foot swelling, erythema and pain. Patient was uncooperative and agitated at time of interview, unable to provide HPI or allow full exam. Per ED records: presents to the ER with Right hand erythema, swelling, and pain. He also has right foot erythema, swelling and pain. Additionally there are scattered lesions on his right leg which are concerning the patient. The patient's right arm and right foot are in extreme pain. He states that he was living in a residential and then his insurance stopped paying for it. He was brought to the hospital to stop the infection and help manage his pain. He has not received any antibiotics for the past 45 days. Denies systemic fevers. ER course was notable for: (1) WBC 15.3 (2) K 3.3 (3) EKG- ST 104bpm, T wave abnormality, consider inferior ischemia History Source: Medical Record Limitations to Obtaining History: Clinical Condition, Poor Historian, Uncooperative - Past Medical History Hepatobiliary: Yes: Hepatitis C - Smoking History Smoking history: Former smoker Have you smoked in the past 12 months: Yes Aproximately how many cigarettes per day: 20 If you are a former smoker, when did you quit?: 2018 - Alcohol/Substance Use Hx Alcohol Use: Yes History of Substance Use: reports: Heroin, Prescription Home Medications - Allergies Allergies/Adverse Reactions: Allergies Allergy/AdvReac Type Severity Reaction Status Date / Time fish derived Allergy Severe Hives Verified 10/02/18 08:57 No Known Drug Allergies Allergy Unknown Verified 10/02/18 08:57 Fish Allergy Severe Hives Uncoded 10/02/18 08:57 NKDA Allergy Uncoded 10/02/18 08:57 - Home Medications Home Medications: Ambulatory Orders Albuterol Sulfate Inhaler - [Ventolin Hfa Inhaler -] 1 - 2 inh PO QID #1 inhaler 10/02/18 Family Disease History - Family Disease History Family Disease History: Diabetes: Grandparent (dec), Father (dec), Other: Mother (alive and well) Review of Systems Unable to obtain ROS, reason: uncooperative Physical Examination Vital Signs: Vital Signs Temperature 98.3 F 02/24/19 23:05 Pulse Rate 98 H 02/25/19 01:50 Respiratory Rate 18 02/25/19 01:50 Blood Pressure 135/69 02/25/19 01:50 O2 Sat by Pulse Oximetry (%) 97 02/25/19 01:50 Constitutional: Yes: Other (uncooperative, unkempt) HENT: Yes: Atraumatic, Normocephalic Neck: Yes: Supple, Trachea Midline Cardiovascular: Yes: Regular Rate and Rhythm, S1, S2 Respiratory: Yes: Regular, CTA Bilaterally Edema: Yes Edema: RUE: 1+, RLE: 1+ Integumentary: Yes: Erythema (right hand with tracking to right mid forearm), Other (edema, warmth to touch- right hand/forearm edema- erythema to right foot) Wound/Incision: Yes: Reddened Neurological: Yes: Confusion Psychiatric: Yes: Agitated Labs: CBC, BMP 02/24/19 11:51 02/24/19 11:51 Imaging - Results Chest X-ray: Pending X-ray: Pending EKG: Image Reviewed Problem List - Problems (1) Cellulitis of right foot Code(s): L03.115 - CELLULITIS OF RIGHT LOWER LIMB (2) Cellulitis of right hand Code(s): L03.113 - CELLULITIS OF RIGHT UPPER LIMB (3) Hepatitis C Code(s): B19.20 - UNSPECIFIED VIRAL HEPATITIS C WITHOUT HEPATIC COMA Qualifiers: (4) Total bilirubin, elevated Code(s): R17 - UNSPECIFIED JAUNDICE (5) Abnormal AST and ALT Code(s): R74.8 - ABNORMAL LEVELS OF OTHER SERUM ENZYMES (6) Polysubstance abuse Code(s): F19.10 - OTHER PSYCHOACTIVE SUBSTANCE ABUSE, UNCOMPLICATED (7) Nicotine dependence Code(s): F17.200 - NICOTINE DEPENDENCE, UNSPECIFIED, UNCOMPLICATED Qualifiers: Nicotine product type: cigarettes Substance use status: in withdrawal Qualified Code(s): F17.213 - Nicotine dependence, cigarettes, with withdrawal Assessment/Plan This is a 43 y/o man with a PMHx of Polysubstance Abuse (Alcohol, Cocaine, Heroin, Opiates), Cellulitis. Admitted for Cellulitis of the Right Hand and Right Foot for further evaluation of their emergent condition. Plan: Will admit to M/S Blood Cultures-pending Vancomycin and Clindamycin given for MRSA coverage will continue Appreciate ID consult Elevate extremity Right Hand, Right Foot-pending Chest Xray-pending Duplex of RUE r/o DVT Wells Score 1 Per nursing staff patient became agitated in the ED and refused the Xrays +Leukocytosis with no left shift T bili 1.2 likely secondary to Hep C AST/ALT 1-2XNL likely secondary to Hep C Monitor CBC, BMP Neurovascular checks Urine Drug Screen-pending Given Morphine in ED, will use Offirmev or Tylenol po instead secondary to Polysubstance Abuse hx Appreciate Psych consult Will probably need Detox Consult Will have Day team reassess patient in am FEN- PO fluids as tolerated, K repleted in ED continue to monitor, Regular Diet DVT ppx- OOB, SCDs, Heparin SQ Code Status: Full Code Dispo: Requires Inpatient Care Visit type - Emergency Visit Emergency Visit: Yes ED Registration Date: 02/24/19 Care time: The patient presented to the Emergency Department on the above date and was hospitalized for further evaluation of their emergent condition. - New Patient This patient is new to me today: Yes Date on this admission: 02/25/19 - Critical Care Critical Care patient: No
[2019-02-25] MEDS ORDERED: LORazepam 2 MG/ML SDV VIAL ONE (02:25)
[2019-02-25] MEDS: ACETAMINOPHEN 325 MG TABLET (FP) PO PRN (07:28)
[2019-02-25 08:39] LABS: BASO % 0.7 % (0-2.0); EOS % 2.1 % (0-4.5); HEMATOCRIT 42.1 % (35.4-49); HEMOGLOBIN 14.5 GM/dL (11.7-16.9); LYMPH % 20.4 % (8-40); MCH 29.3 pg (25.7-33.7); MCHC 34.6 g/dl (32.0-35.9); MEAN CELL VOLUME 84.7 fl (80-96); MEAN PLT VOLUME 8.3 fl (7.5-11.1); MONO % 9.8 % (3.8-10.2); PLATELET COUNT 351 K/MM3 (134-434); RBC 4.97 M/mm3 (4.00-5.60); RDW 13.8 % (11.9-15.9); WHITE BLOOD COUNT 11.8 K/mm3 (4.0-10.0)
[2019-02-25 09:03] LABS: ANION GAP 6 MMOL/L (8-16); BLOOD UREA NITROGEN 6 mg/dL (7-18); CALCIUM 8.4 mg/dL (8.5-10.1); CHLORIDE 102 mmol/L (98-107); CO2 31 mmol/L (21-32); CREATININE 0.6 mg/dL (0.55-1.3); GLUCOSE,RANDOM 112 mg/dL (74-106); POTASSIUM 3.3 mmol/L (3.5-5.1); SODIUM 139 mmol/L (136-145)
[2019-02-25] MEDS ORDERED: CLINDAMYCIN 600MG PREMIX IVPB 600 MG/50 ML BAG IVPB SCH (10:00)
[2019-02-25] MEDS: HEPARIN NA (PORCINE) 5,000 UNITS/ML 1ML VIAL SQ SCH ×2 (11:09→21:33)
[2019-02-25] MEDS ORDERED: oxyCODONE HCL 5 MG TABLET PO PRN (11:13)
--- NOTE | 2019-02-25 11:18 | PN ---
Progress Note, Physician Chief Complaint: RIGHT HAND AND FOOT CELLULITIS History of Present Illness: Patient Name: Brad Anguiano Date: 1975 Address: [address] [place] [address] Sex: Male Rx Written Rx Dispensed Drug Quantity Days Supply Prescriber Name 02/06/2019 02/06/2019 oxycodone hcl 10 mg tablet 60 10 Ham, Lizzie 02/02/2019 02/02/2019 oxycodone hcl 10 mg tablet 30 5 Main Hanson MD 01/23/2019 01/23/2019 oxycodone hcl 10 mg tablet 60 10 Ham, Lizzie 01/11/2019 01/12/2019 oxycodone hcl 10 mg tablet 60 10 Ham, Lizzie 01/01/2019 01/01/2019 oxycodone hcl 10 mg tablet 60 10 Ham, Lizzie 12/19/2018 12/19/2018 oxycodone hcl 10 mg tablet 56 14 Farhana Yadav [facility] 12/04/2018 12/04/2018 oxycodone hcl 10 mg tablet 42 10 Farhana Yadav [facility] 11/30/2018 12/02/2018 oxycontin er 10 mg tablet 20 10 VicentaFarhana mccracken [facility] 11/29/2018 11/30/2018 oxycodone hcl 5 mg tablet 20 7 Farhana Yadav [facility] 11/22/2018 11/22/2018 oxycodone hcl 10 mg tablet 42 14 Farhana Yadav [facility] 11/06/2018 11/06/2018 oxycodone hcl 10 mg tablet 56 14 Farhana Yadav [facility] 10/23/2018 10/23/2018 oxycodone hcl 10 mg tablet 56 14 Harsh Mercedes MD 10/18/2018 10/18/2018 oxycodone hcl 10 mg tablet 28 7 Farhana Yadav [facility] NAD C/O pain RUE and RLE States he had right ankle surgery couple of months ago, right foot has been swollen ever since. History of polysubstance abuse Urine Detox pending Is refusing Xrays and U/S of RUE and RLE - Current Medication List Current Medications: Active Medications Acetaminophen (Tylenol -) 650 mg PO Q6H PRN PRN Reason: PAIN LEVEL 7 - 10 Last Admin: 02/25/19 07:28 Dose: 650 mg Docusate Sodium (Colace -) 300 mg PO HS [facility] Heparin Sodium (Porcine) (Heparin -) 5,000 unit SQ BID [facility] Last Admin: 02/25/19 11:09 Dose: 5,000 unit Clindamycin Phosphate (Cleocin 600 Mg Premix Ivpb -) 600 mg in 50 mls @ 100 mls /hr IVPB Q8H-IV [facility]; Protocol Last Admin: 02/25/19 11:09 Dose: 100 mls/hr Vancomycin HCl 1,250 mg/ (Dextrose) 250 mls @ 166.667 mls/hr IVPB Q12H [facility]; Protocol Morphine Sulfate (Morphine Sulfate) 4 mg IVPUSH Q6H PRN PRN Reason: PAIN LEVEL 7 - 10 Oxycodone HCl (Roxicodone -) 10 mg PO Q6H PRN PRN Reason: PAIN LEVEL 4 - 6 Potassium Chloride (K-Dur -) 40 meq PO DAILY [facility] - Objective Vital Signs: Vital Signs Temperature 99.0 F 02/25/19 06:00 Pulse Rate 89 02/25/19 06:00 Respiratory Rate 20 02/25/19 06:00 Blood Pressure 153/72 02/25/19 06:00 O2 Sat by Pulse Oximetry (%) 97 02/25/19 04:13 Constitutional: Yes: Well Nourished, No Distress, Anxious, Other (AGITATED) Cardiovascular: Yes: Regular Rate and Rhythm Respiratory: Yes: Regular Gastrointestinal: Yes: Normal Bowel Sounds, Soft Genitourinary: Yes: WNL Musculoskeletal: Yes: WNL Extremities: Yes: WNL, Erythema (RIGHT HAND, RIGHT FOOT) Edema: Yes (NON PITTING, RUE and RLE) Edema: LUE: 3+ Peripheral Pulses WNL: Yes Neurological: Yes: Alert, Oriented Psychiatric: Yes: Alert, Agitated Labs: CBC, BMP 02/25/19 08:20 02/25/19 08:20 INR, PTT INR 1.12 (0.83-1.09) H 02/24/19 11:51 Problem List - Problems (1) Cellulitis of right foot Assessment/Plan: -IV Clindamycin -ID consult -afebrile -Leukocytosis improved -encouraged to do Xray and U/S RU and RLE Code(s): L03.115 - CELLULITIS OF RIGHT LOWER LIMB (2) Cellulitis of right hand Assessment/Plan: -IV Clindamycin -ID consult -afebrile -Leukocytosis improved Code(s): L03.113 - CELLULITIS OF RIGHT UPPER LIMB (3) Polysubstance abuse Assessment/Plan: -Resume oxycodone, HCS hx as above -Pain management -Added morphine 4mg ivp q6h prn temporarily, taper off within next 48-72 hours Code(s): F19.10 - OTHER PSYCHOACTIVE SUBSTANCE ABUSE, UNCOMPLICATED (4) Hypokalemia Assessment/Plan: -KCl 40 meq po once -monitor trend Code(s): E87.6 - HYPOKALEMIA Assessment/Plan See problem list self ambulatory
[2019-02-25] MEDS: morphine SULFATE 4 MG/ML VIAL IVPUSH PRN ×2 (11:23→17:24)
[2019-02-25] MEDS: POTASSIUM CHLORIDE TABS 10 MEQ TABLET.ER (FP) PO SCH ×2 (11:25→12:24)
[2019-02-25 11:49] LABS: ALBUMIN 3.3 g/dl (3.4-5.0); ALK PHOS 88 U/L (45-117); BILIRUBIN,DIRECT 0.5 mg/dL (0.0-0.2); BILIRUBIN,TOTAL 1.3 mg/dL (0.2-1); SGOT/AST 59 U/L (15-37); SGPT/ALT 69 U/L (13-61); TOT PROT 6.7 g/dl (6.4-8.2)
--- NOTE | 2019-02-25 13:06 | CONSULT ---
Consult Consult Specialty:: Pain Managemnet Reason for Consultation:: Rt hand pain - History of Present Illness Chief Complaint: 43 yr old male with HO polysubstance abuse was admitted with Rt and Celulitis and pain 09/04 on Iv Morphine and Oxycodone - History Source History Provided By: Patient Limitations to Obtaining History: No Limitations - Past Medical History Hepatobiliary: Yes: Hepatitis C - Alcohol/Substance Use Hx Alcohol Use: No History of Substance Use: reports: Heroin, Prescription - Smoking History Smoking history: Former smoker Have you smoked in the past 12 months: Yes Aproximately how many cigarettes per day: 20 If you are a former smoker, when did you quit?: 2018 Home Medications - Allergies Allergies/Adverse Reactions: Allergies Allergy/AdvReac Type Severity Reaction Status Date / Time fish derived Allergy Severe Hives Verified 10/02/18 08:57 No Known Drug Allergies Allergy Unknown Verified 10/02/18 08:57 Fish Allergy Severe Hives Uncoded 10/02/18 08:57 NKDA Allergy Uncoded 10/02/18 08:57 - Home Medications Home Medications: Ambulatory Orders Albuterol Sulfate Inhaler - [Ventolin Hfa Inhaler -] 1 - 2 inh PO QID #1 inhaler 10/02/18 Family Disease History - Family Disease History Family Disease History: Diabetes: Grandparent (dec), Father (dec), Other: Mother (alive and well) Review of Systems - Review of Systems Constitutional: reports: No Symptoms Eyes: reports: No Symptoms HENT: reports: No Symptoms Neck: reports: No Symptoms Respiratory: reports: No Symptoms Gastrointestinal: reports: No Symptoms Genitourinary: reports: No Symptoms Musculoskeletal: reports: Other (Rt Hand and Rt Ankle swelling) Integumentary: reports: No Symptoms Neurological: reports: No Symptoms Hematology/Lymphatic: reports: No Symptoms Physical Exam Vital Signs: Vital Signs Temperature 99.0 F 02/25/19 06:00 Pulse Rate 89 02/25/19 06:00 Respiratory Rate 20 02/25/19 06:00 Blood Pressure 153/72 02/25/19 06:00 O2 Sat by Pulse Oximetry (%) 97 02/25/19 04:13 Constitutional: Yes: Well Nourished, Anxious Eyes: Yes: WNL HENT: Yes: WNL Neck: Yes: WNL Respiratory: Yes: WNL Gastrointestinal: Yes: WNL Renal/: Yes: WNL Musculoskeletal: Yes: Other Extremities: Yes: Other (Rt hand and Rt ankle swelling ,) Edema: RUE: 1+, RLE: 1+ Neurological: Yes: WNL ...Motor Strength: WNL Labs: CBC, BMP 02/25/19 08:20 02/25/19 08:20 Assessment/Plan Discuss in detail and answered all of his questions 1. Psych eval 2. Inpatient Detox evaluatio and treatment if needed 3. Ibuprofen 8 mg PO TID 4, Neurontin 300 mg PO TID 5 D/ C Oxycodone 6. Cold pack to Rt Hand 7. Infectious disease consult appreciated. 8/ Physical therapy eval and treat for Ankle pain and ambulatio with Cane as he has difficulty in walking . 9. IV Morphine for one day only then, MScontin 15 mg PO BID and MSIR 15 mg PO TID MN> Please call me if you have ay question to [phone] . Thanks
--- NOTE | 2019-02-25 13:31 | PN ---
Progress Note (short form) - Note Progress Note: ID CONSULT DICTATED R HAND/ FOREARM CELLULITIS R/O SEPSIS SECONDARY TO SKIN SOURCE HX POLYSUBSTANCE ABUSE HX HCV+ AWAIT C/S XRAY R HAND HAND SURGERY EVALUATION EMPIRIC VANCOMYCIN/CEFTRIAXONE HIV TEST
[2019-02-25] MEDS ORDERED: DEXTROSE 5%-WATER 100 ML IVPB ONE (14:24)
[2019-02-25] MEDS: IBUPROFEN 800 MG/8 ML IJ IVPB PRN (14:30)
[2019-02-25] MEDS ORDERED: VANCOMYCIN 1,250 MG in DEXTROSE 5%-WATER - 250 ML IVPB SCH (14:30)
[2019-02-25] MEDS: CEFTRIAXONE 2 GM in DEXTROSE 5%-WATER 100 ML IVPB SCH (14:33)
[2019-02-25] MEDS: PANTOPRAZOLE 40 MG TABLET (FP) PO SCH (14:34)
[2019-02-25] MEDS: GABAPENTIN 300 MG CAPSULE (FP) PO SCH ×2 (14:34→21:29)
--- NOTE | 2019-02-25 14:42 | EKG ---
Test Reason : Blood Pressure : / mmHG Vent. Rate : 104 BPM Atrial Rate : 104 BPM P-R Int : 176 ms QRS Dur : 100 ms QT Int : 376 ms P-R-T Axes : 054 066 021 degrees QTc Int : 494 ms SINUS TACHYCARDIA T WAVE ABNORMALITY, CONSIDER INFERIOR ISCHEMIA ABNORMAL ECG WHEN COMPARED WITH ECG OF 02-OCT-2018 10:07, T WAVE INVERSION NOW EVIDENT IN INFERIOR LEADS NONSPECIFIC T WAVE ABNORMALITY, WORSE IN ANTERIOR LEADS Confirmed by Alvino Mayorga ([id number]) on 02/25/2019 2:41:44 PM Referred By: Confirmed By:Alvino Mayorga
[2019-02-25] MEDS: VANCOMYCIN 1 GM PREMIX - 1 GM/200 ML BAG IVPB SCH (15:22)
[2019-02-25] MEDS: BENZOCAINE 20 % GEL TUBE MM PRN ×2 (15:45→21:29)
[2019-02-25 16:57] LABS: METHADONE, UR NEGATIVE ng/ml (CUTOFF=300); PHENCYCLIDINE,URINE NEGATIVE ng/ml (CUTOFF=25); URINE AMPHETAMINES NEGATIVE ng/ml (CUTOFF=500); URINE BENZODIAZEPINES NEGATIVE ng/ml (CUTOFF=200)
[2019-02-25 16:58] LABS: URINE BARBITURATES NEGATIVE ng/ml (CUTOFF=200)
[2019-02-25 17:12] LABS: COCAINE, UR POSITIVE ng/ml (CUTOFF=300); OPIATES, URI POSITIVE ng/ml (CUTOFF=300)
[2019-02-25 17:56] LABS: PH,URINE 8.5 (5.0-8.0); URINE APPEARANCE CLOUDY; URINE BILIRUBIN NEGATIVE (NEGATIVE); URINE COLOR YELLOW; URINE GLUCOSE (UA) NEGATIVE (NEGATIVE); URINE KETONE TRACE (NEGATIVE); URINE LEUK ESTERASE NEGATIVE (NEGATIVE); URINE NITRITE NEGATIVE (NEGATIVE); URINE PROTEIN NEGATIVE (NEGATIVE); URINE UROBILINOGEN 4.0 E.U/dl mg/dL (0.2-1.0)
[2019-02-25] MEDS: DOCUSATE SODIUM 100 MG CAPSULE (FP) PO SCH (21:33)
[2019-02-26] MEDS: VANCOMYCIN 1 GM PREMIX - 1 GM/200 ML BAG IVPB SCH ×2 (01:36→12:56)
[2019-02-26] MEDS: morphine SULFATE 4 MG/ML VIAL IVPUSH PRN (01:42)
[2019-02-26] MEDS: morphine SULFATE IMMEDIATE RELEASE 30 MG TAB PO PRN ×2 (05:57→14:10)
[2019-02-26] MEDS: GABAPENTIN 300 MG CAPSULE (FP) PO SCH ×3 (05:57→21:24)
[2019-02-26] MEDS: BENZOCAINE 20 % GEL TUBE MM PRN ×2 (06:01→21:26)
[2019-02-26 08:22] LABS: ALBUMIN 3.2 g/dl (3.4-5.0); ALK PHOS 82 U/L (45-117); ANION GAP 9 MMOL/L (8-16); BILIRUBIN,TOTAL 0.6 mg/dL (0.2-1); BLOOD UREA NITROGEN 5 mg/dL (7-18); CALCIUM 8.2 mg/dL (8.5-10.1); CHLORIDE 106 mmol/L (98-107); CO2 25 mmol/L (21-32); CREATININE 0.6 mg/dL (0.55-1.3); GLUCOSE,RANDOM 96 mg/dL (74-106); POTASSIUM 4.2 mmol/L (3.5-5.1); SGOT/AST 40 U/L (15-37); SGPT/ALT 54 U/L (13-61); SODIUM 139 mmol/L (136-145); TOT PROT 6.6 g/dl (6.4-8.2)
[2019-02-26 08:25] LABS: EOS % 2.8 % (0-4.5); HEMOGLOBIN 14.7 GM/dL (11.7-16.9); LYMPH % 31.3 % (8-40); MCHC 33.5 g/dl (32.0-35.9); MEAN CELL VOLUME 86.7 fl (80-96); MEAN PLT VOLUME 9.6 fl (7.5-11.1); NEUT % 54.9 % (42.8-82.8); RBC 5.08 M/mm3 (4.00-5.60); RDW 13.8 % (11.9-15.9); WHITE BLOOD COUNT 9.2 K/mm3 (4.0-10.0)
[2019-02-26 09:49] LABS: PLATELET ESTIMATE ADEQUATE
--- NOTE | 2019-02-26 09:50 | PN ---
Progress Note, Physician - Current Medication List Current Medications: Active Medications Acetaminophen (Tylenol -) 650 mg PO Q6H PRN PRN Reason: PAIN LEVEL 7 - 10 Last Admin: 02/25/19 07:28 Dose: 650 mg Benzocaine (Anbesol -) 1 applic MM Q6H PRN PRN Reason: ORAL PAIN/MOUTH SORES Last Admin: 02/26/19 06:01 Dose: 1 applic Docusate Sodium (Colace -) 300 mg PO HS [facility] Last Admin: 02/25/19 21:33 Dose: Not Given Gabapentin (Neurontin -) 300 mg PO TID [facility] Last Admin: 02/26/19 05:57 Dose: 300 mg Heparin Sodium (Porcine) (Heparin -) 5,000 unit SQ BID [facility] Last Admin: 02/25/19 21:33 Dose: Not Given Vancomycin HCl (Vancomycin 1 Gm Premix -) 1 gm in 200 mls @ 400 mls/hr IVPB Q12H [facility]; Protocol Last Admin: 02/26/19 01:36 Dose: 400 mls/hr Ceftriaxone Sodium 2 gm/ (Dextrose) 100 mls @ 100 mls/hr IVPB DAILY [facility]; Protocol Last Admin: 02/25/19 14:33 Dose: 100 mls/hr Ibuprofen (Caldolor Injection -) 800 mg IVPB Q8H PRN PRN Reason: FEVER Last Admin: 02/25/19 14:30 Dose: 800 mg Morphine Sulfate (Morphine Sulfate) 4 mg IVPUSH Q6H PRN PRN Reason: PAIN LEVEL 7 - 10 Stop: 02/26/19 11:00 Last Admin: 02/26/19 01:42 Dose: 4 mg Morphine Sulfate (Msir -) 15 mg PO Q8H PRN PRN Reason: PAIN LEVEL 6-10 Last Admin: 02/26/19 05:57 Dose: 15 mg Morphine Sulfate (Ms Contin -) 15 mg PO BID [facility] Pantoprazole Sodium (Protonix -) 40 mg PO DAILY [facility] Last Admin: 02/25/19 14:34 Dose: Not Given Potassium Chloride (K-Dur -) 40 meq PO DAILY [facility] Last Admin: 02/25/19 12:24 Dose: 40 meq - Objective Vital Signs: Vital Signs Temperature 97.7 F 02/26/19 06:00 Pulse Rate 77 02/26/19 06:00 Respiratory Rate 18 02/26/19 06:00 Blood Pressure 135/79 02/26/19 06:00 O2 Sat by Pulse Oximetry (%) 97 02/25/19 04:13 Cardiovascular: Yes: Regular Rate and Rhythm Respiratory: Yes: Regular, CTA Bilaterally Gastrointestinal: Yes: Normal Bowel Sounds, Soft Extremities: Yes: Erythema, Other (swelling rt hand swelling of foot) Labs: CBC, BMP 02/26/19 05:30 02/26/19 05:30 INR, PTT INR 1.12 (0.83-1.09) H 02/24/19 11:51 Assessment/Plan - Problems (1) Cellulitis of right foot Assessment/Plan: -IV Clindamycin -ID consult -afebrile -Leukocytosis improved -encouraged to do Xray and U/S RU and RLE Code(s): L03.115 - CELLULITIS OF RIGHT LOWER LIMB (2) Cellulitis of right hand Assessment/Plan: -IV Clindamycin -ID consult -afebrile -Leukocytosis improved Code(s): L03.113 - CELLULITIS OF RIGHT UPPER LIMB (3) Polysubstance abuse Assessment/Plan: -Resume oxycodone, HCS hx as above -Pain management -Added morphine 4mg ivp q6h prn temporarily, taper off within next 48-72 hours Code(s): F19.10 - OTHER PSYCHOACTIVE SUBSTANCE ABUSE, UNCOMPLICATED (4) Hypokalemia Assessment/Plan: -KCl 40 meq po once -monitor trend Code(s): E87.6 - HYPOKALEMIA
[2019-02-26] MEDS ORDERED: DEXTROSE 5%-WATER 100 ML IVPB ONE (10:15)
[2019-02-26] MEDS: POTASSIUM CHLORIDE TABS 10 MEQ TABLET.ER (FP) PO SCH (10:18)
[2019-02-26] MEDS: HEPARIN NA (PORCINE) 5,000 UNITS/ML 1ML VIAL SQ SCH ×2 (10:19→21:26)
[2019-02-26] MEDS: CEFTRIAXONE 2 GM in DEXTROSE 5%-WATER 100 ML IVPB SCH (10:19)
[2019-02-26] MEDS: PANTOPRAZOLE 40 MG TABLET (FP) PO SCH (10:19)
[2019-02-26] MEDS: morphine SO4 SUSTAINED ACTING 15 MG TABLET.SA PO SCH ×2 (10:19→21:23)
[2019-02-26] MEDS ORDERED: PT OWN MED DRAWER 7, Y5N ONE (12:22)
--- NOTE | 2019-02-26 13:05 | CON.ORTH ---
Consult Reason for Consultation:: right hand pain/swelling - Past Medical History Hepatobiliary: Yes: Hepatitis C - Alcohol/Substance Use Hx Alcohol Use: No History of Substance Use: reports: Heroin, Prescription - Smoking History Smoking history: Former smoker Have you smoked in the past 12 months: Yes Aproximately how many cigarettes per day: 20 If you are a former smoker, when did you quit?: 2018 Home Medications - Allergies Allergies/Adverse Reactions: Allergies Allergy/AdvReac Type Severity Reaction Status Date / Time fish derived Allergy Severe Hives Verified 10/02/18 08:57 No Known Drug Allergies Allergy Unknown Verified 10/02/18 08:57 Fish Allergy Severe Hives Uncoded 10/02/18 08:57 NKDA Allergy Uncoded 10/02/18 08:57 - Home Medications Home Medications: Ambulatory Orders Albuterol Sulfate Inhaler - [Ventolin Hfa Inhaler -] 1 - 2 inh PO QID #1 inhaler 10/02/18 Family Disease History - Family Disease History Family Disease History: Diabetes: Grandparent (dec), Father (dec), Other: Mother (alive and well) Physical Exam for Ortho Vital Signs: Vital Signs Temperature 97.7 F 02/26/19 06:00 Pulse Rate 77 02/26/19 06:00 Respiratory Rate 18 02/26/19 06:00 Blood Pressure 135/79 02/26/19 06:00 O2 Sat by Pulse Oximetry (%) 97 02/25/19 04:13 Labs: CBC, BMP 02/26/19 05:30 02/26/19 05:30 INR, PTT INR 1.12 (0.83-1.09) H 02/24/19 11:51 - Upper Extremity Hand: Yes: Right, Erythema, Pain, Swelling, Tenderness, Other (+ diffuse ttp, able to fully extend fingers, lacking about 15 degrees of flexion, nvi) Assessment/Plan 43 y/o man with a past medical history of Polysubstance Abuse (Alcohol, Cocaine , Heroin, Opiates) last Detox treatment 09/27/18 at [facility], Multiple episodes of Cellulitis. Who presents to the ED with right hand/foot swelling, erythema and pain. Denies and injury/trauma. a/p right hand cellulitis No surgical intervention at this time IV abx as per ID f/u xrays strict elevation warm soaks will follow d/w Dr. Hackett
[2019-02-26] MEDS: DOCUSATE SODIUM 100 MG CAPSULE (FP) PO SCH (21:26)
[2019-02-27] MEDS: VANCOMYCIN 1 GM PREMIX - 1 GM/200 ML BAG IVPB SCH ×3 (01:33→21:19)
[2019-02-27] MEDS: GABAPENTIN 300 MG CAPSULE (FP) PO SCH ×3 (06:54→21:14)
[2019-02-27] MEDS: morphine SULFATE IMMEDIATE RELEASE 30 MG TAB PO PRN ×3 (06:56→22:43)
[2019-02-27] MEDS ORDERED: DEXTROSE 5%-WATER 100 ML IVPB ONE (08:52)
[2019-02-27] MEDS: POTASSIUM CHLORIDE TABS 10 MEQ TABLET.ER (FP) PO SCH (09:19)
[2019-02-27] MEDS: morphine SO4 SUSTAINED ACTING 15 MG TABLET.SA PO SCH ×2 (09:20→21:14)
[2019-02-27] MEDS: PANTOPRAZOLE 40 MG TABLET (FP) PO SCH (09:20)
[2019-02-27] MEDS: HEPARIN NA (PORCINE) 5,000 UNITS/ML 1ML VIAL SQ SCH ×2 (09:20→21:22)
[2019-02-27] MEDS: CEFTRIAXONE 2 GM in DEXTROSE 5%-WATER 100 ML IVPB SCH (09:21)
[2019-02-27] MEDS: IBUPROFEN 800 MG/8 ML IJ IVPB PRN (12:33)
--- NOTE | 2019-02-27 13:04 | PN ---
Progress Note (short form) - Note Progress Note: Ortho Pt seen and examined- improving Selected Entries 02/27/19 10:00 Temperature 97.8 F Pulse Rate 92 H Respiratory 18 Rate Blood Pressure 138/79 Laboratory Tests 02/25/19 02/26/19 08:20 05:30 WBC 9.2 Hgb 14.7 Hct 44.0 Plt Count 351 right hand- decr swelling, decr erythema, incr rom nvi xrays of right hand neg, right foot- s/p calcaneal orif otherwise neg a/p Iv abx as per ID elevation warm soaks will f/u d/w Dr. Hackett
--- NOTE | 2019-02-27 14:30 | PN ---
Progress Note, Physician History of Present Illness: REPORTS LESS R HAND PAIN/SWELLING NO C/O FEVER/ CHILLS - Current Medication List Current Medications: Active Medications Acetaminophen (Tylenol -) 650 mg PO Q6H PRN PRN Reason: PAIN LEVEL 7 - 10 Last Admin: 02/25/19 07:28 Dose: 650 mg Benzocaine (Anbesol -) 1 applic MM Q6H PRN PRN Reason: ORAL PAIN/MOUTH SORES Last Admin: 02/26/19 21:26 Dose: 1 applic Docusate Sodium (Colace -) 300 mg PO HS [facility] Last Admin: 02/26/19 21:26 Dose: Not Given Gabapentin (Neurontin -) 300 mg PO TID [facility] Last Admin: 02/27/19 06:54 Dose: 300 mg Heparin Sodium (Porcine) (Heparin -) 5,000 unit SQ BID [facility] Last Admin: 02/27/19 09:20 Dose: Not Given Vancomycin HCl (Vancomycin 1 Gm Premix -) 1 gm in 200 mls @ 400 mls/hr IVPB Q12H [facility]; Protocol Last Admin: 02/27/19 01:33 Dose: 400 mls/hr Ceftriaxone Sodium 2 gm/ (Dextrose) 100 mls @ 100 mls/hr IVPB DAILY [facility]; Protocol Last Admin: 02/27/19 09:21 Dose: 100 mls/hr Ibuprofen (Caldolor Injection -) 800 mg IVPB Q8H PRN PRN Reason: FEVER Last Admin: 02/27/19 12:33 Dose: 800 mg Morphine Sulfate (Msir -) 15 mg PO Q8H PRN PRN Reason: PAIN LEVEL 6-10 Last Admin: 02/27/19 06:56 Dose: 15 mg Morphine Sulfate (Ms Contin -) 15 mg PO BID [facility] Last Admin: 02/27/19 09:20 Dose: 15 mg Pantoprazole Sodium (Protonix -) 40 mg PO DAILY [facility] Last Admin: 02/27/19 09:20 Dose: 40 mg Potassium Chloride (K-Dur -) 40 meq PO DAILY [facility] Last Admin: 02/27/19 09:19 Dose: 40 meq - Objective Vital Signs: Vital Signs Temperature 97.8 F 02/27/19 10:00 Pulse Rate 92 H 02/27/19 10:00 Respiratory Rate 18 02/27/19 10:00 Blood Pressure 138/79 02/27/19 10:00 O2 Sat by Pulse Oximetry (%) 97 02/25/19 04:13 Constitutional: Yes: No Distress Musculoskeletal: Yes: Other (DECREASED SWELLING/ ERYTHEMA R HAND) Labs: CBC, BMP 02/26/19 05:30 02/26/19 05:30 INR, PTT INR 1.12 (0.83-1.09) H 02/24/19 11:51 Assessment/Plan CELLULITIS R HAND/ FOREARM BC NO GROWTH CONTINUE VANCOMYCIN/ CEFTRIAXONE ELEVATION
--- NOTE | 2019-02-27 14:42 | PN ---
Progress Note, Physician Chief Complaint: hand swelling improving no fever wbc count is normal - Current Medication List Current Medications: Active Medications Acetaminophen (Tylenol -) 650 mg PO Q6H PRN PRN Reason: PAIN LEVEL 7 - 10 Last Admin: 02/25/19 07:28 Dose: 650 mg Benzocaine (Anbesol -) 1 applic MM Q6H PRN PRN Reason: ORAL PAIN/MOUTH SORES Last Admin: 02/26/19 21:26 Dose: 1 applic Docusate Sodium (Colace -) 300 mg PO HS [facility] Last Admin: 02/26/19 21:26 Dose: Not Given Gabapentin (Neurontin -) 300 mg PO TID [facility] Last Admin: 02/27/19 06:54 Dose: 300 mg Heparin Sodium (Porcine) (Heparin -) 5,000 unit SQ BID [facility] Last Admin: 02/27/19 09:20 Dose: Not Given Vancomycin HCl (Vancomycin 1 Gm Premix -) 1 gm in 200 mls @ 400 mls/hr IVPB Q12H [facility]; Protocol Last Admin: 02/27/19 01:33 Dose: 400 mls/hr Ceftriaxone Sodium 2 gm/ (Dextrose) 100 mls @ 100 mls/hr IVPB DAILY [facility]; Protocol Last Admin: 02/27/19 09:21 Dose: 100 mls/hr Ibuprofen (Caldolor Injection -) 800 mg IVPB Q8H PRN PRN Reason: FEVER Last Admin: 02/27/19 12:33 Dose: 800 mg Morphine Sulfate (Msir -) 15 mg PO Q8H PRN PRN Reason: PAIN LEVEL 6-10 Last Admin: 02/27/19 06:56 Dose: 15 mg Morphine Sulfate (Ms Contin -) 15 mg PO BID [facility] Last Admin: 02/27/19 09:20 Dose: 15 mg Pantoprazole Sodium (Protonix -) 40 mg PO DAILY [facility] Last Admin: 02/27/19 09:20 Dose: 40 mg Potassium Chloride (K-Dur -) 40 meq PO DAILY [facility] Last Admin: 02/27/19 09:19 Dose: 40 meq - Objective Vital Signs: Vital Signs Temperature 97.8 F 02/27/19 10:00 Pulse Rate 92 H 02/27/19 10:00 Respiratory Rate 18 02/27/19 10:00 Blood Pressure 138/79 02/27/19 10:00 O2 Sat by Pulse Oximetry (%) 97 02/25/19 04:13 Constitutional: Yes: Calm Cardiovascular: Yes: Regular Rate and Rhythm, S1, S2 Respiratory: Yes: CTA Bilaterally Gastrointestinal: Yes: Normal Bowel Sounds, Soft Extremities: Yes: Other (hand swelling much better foot edema noted) Labs: CBC, BMP 02/26/19 05:30 02/26/19 05:30 INR, PTT INR 1.12 (0.83-1.09) H 02/24/19 11:51 Problem List - Problems (1) Cellulitis of right foot Assessment/Plan: rocephin Code(s): L03.115 - CELLULITIS OF RIGHT LOWER LIMB (2) Cellulitis of right hand Assessment/Plan: same abx wbc normnal ortho saw patient Code(s): L03.113 - CELLULITIS OF RIGHT UPPER LIMB (3) Hypokalemia Assessment/Plan: repleted recheck in morning Code(s): E87.6 - HYPOKALEMIA
[2019-02-27] MEDS: ACETAMINOPHEN 325 MG TABLET (FP) PO PRN (17:01)
[2019-02-27] MEDS ORDERED: morphine SULFATE IMMEDIATE RELEASE 30 MG TAB PO ONE (19:00)
--- NOTE | 2019-02-27 20:06 | CONS ---
DATE OF CONSULTATION: 02/25/2019 INFECTIOUS DISEASE CONSULTATION HISTORY OF PRESENT ILLNESS: The patient is a 43-year-old male with a history of polysubstance abuse evaluated for cellulitis of the right hand and forearm. He presented with complaints of 2-3 day history of worsening right hand pain and swelling as well as right foot erythema, pain and swelling. He presented to the emergency room, where he was found to have cellulitis of the right hand and distal right forearm. Patient states that the hand became swollen and red spontaneously. He denies any traumatic injury, denies injection drug use into the hand or the forearm, no other trauma was reported. He denies any associated fever or chills. He denies prior history of serious soft tissue infection requiring hospitalization or history of MRSA. PAST MEDICAL HISTORY: Positive for hepatitis C. ALLERGIES: No known allergies. PAST SURGICAL HISTORY: Status post bilateral inguinal hernia repair. SOCIAL HISTORY: Positive for tobacco and polysubstance abuse. He reports he is a former injection drug user, last used injection drugs in 2014. States he tested HIV negative in the past. LABORATORY DATA: White count on admission 15.3, presently 11.8, creatinine 0.6, blood cultures are pending. PHYSICAL EXAMINATION: General: On exam, he is awake and alert, in moderate distress secondary to right hand pain. Vital signs: Temperature 99, blood pressure 153/72, pulse 89 regular, respirations 20 per minute. HEENT: Sclerae anicteric. Cardiovascular: Heart sounds S1, S2. Lungs: Clear. Abdomen: Soft, nontender. Extremities: Examination of the right upper extremity, there is marked swelling of the right hand diffusely with confluent erythema involving the dorsal and palmar aspects of the hand extending to the distal forearm. It is warm to touch and tender, decreased range of motion, no crepitus or fluctuance, no lymphangitic streaking. IMPRESSION: 1. Right hand/forearm cellulitis. 2. Rule out sepsis secondary to skin sores. 3. History of polysubstance abuse. 4. History of hepatitis C. Await cultures. Obtain hand x-ray. Hand surgery evaluation. Empiric antibiotic coverage with vancomycin and ceftriaxone. HIV testing. Thank you for the kind referral. RAYMOND RAMOS M.D. [id number]
[2019-02-27] MEDS: DOCUSATE SODIUM 100 MG CAPSULE (FP) PO SCH (21:22)
[2019-02-28] MEDS: VANCOMYCIN 1 GM PREMIX - 1 GM/200 ML BAG IVPB SCH ×2 (01:12→14:37)
[2019-02-28] MEDS: morphine SULFATE IMMEDIATE RELEASE 30 MG TAB PO PRN ×3 (06:47→22:44)
[2019-02-28] MEDS: GABAPENTIN 300 MG CAPSULE (FP) PO SCH ×3 (06:48→21:41)
[2019-02-28 08:20] LABS: EOS % 2.9 % (0-4.5); HEMATOCRIT 41.6 % (35.4-49); HEMOGLOBIN 14.3 GM/dL (11.7-16.9); LYMPH % 31.3 % (8-40); MCH 29.6 pg (25.7-33.7); MCHC 34.4 g/dl (32.0-35.9); MEAN CELL VOLUME 86.1 fl (80-96); MEAN PLT VOLUME 8.2 fl (7.5-11.1); MONO % 11.9 % (3.8-10.2); NEUT % 52.9 % (42.8-82.8); PLATELET COUNT 432 K/MM3 (134-434); RBC 4.84 M/mm3 (4.00-5.60); WHITE BLOOD COUNT 7.5 K/mm3 (4.0-10.0)
[2019-02-28 08:52] LABS: ALK PHOS 68 U/L (45-117); ANION GAP 6 MMOL/L (8-16); BILIRUBIN,TOTAL 0.4 mg/dL (0.2-1); BLOOD UREA NITROGEN 9 mg/dL (7-18); CALCIUM 8.5 mg/dL (8.5-10.1); CHLORIDE 105 mmol/L (98-107); CO2 28 mmol/L (21-32); CREATININE 0.6 mg/dL (0.55-1.3); GLUCOSE,RANDOM 104 mg/dL (74-106); POTASSIUM 4.5 mmol/L (3.5-5.1); SGOT/AST 68 U/L (15-37); SGPT/ALT 70 U/L (13-61); SODIUM 139 mmol/L (136-145); TOT PROT 6.3 g/dl (6.4-8.2)
[2019-02-28] MEDS ORDERED: DEXTROSE 5%-WATER 100 ML IVPB ONE (09:59)
[2019-02-28] MEDS: POTASSIUM CHLORIDE TABS 10 MEQ TABLET.ER (FP) PO SCH ×2 (10:01→10:15)
[2019-02-28] MEDS: PANTOPRAZOLE 40 MG TABLET (FP) PO SCH (10:01)
[2019-02-28] MEDS: morphine SO4 SUSTAINED ACTING 15 MG TABLET.SA PO SCH ×2 (10:01→21:41)
[2019-02-28] MEDS: CEFTRIAXONE 2 GM in DEXTROSE 5%-WATER 100 ML IVPB SCH (10:01)
[2019-02-28] MEDS: HEPARIN NA (PORCINE) 5,000 UNITS/ML 1ML VIAL SQ SCH ×2 (10:14→23:55)
--- NOTE | 2019-02-28 11:05 | PN ---
Progress Note (short form) - Note Progress Note: Ortho Pt seen and examined- improving- 2 pustules noted on right middle finger Selected Entries 02/27/19 10:00 Temperature 97.8 F Pulse Rate 92 H Respiratory 18 Rate Blood Pressure 138/79 Laboratory Tests 02/25/19 02/26/19 08:20 05:30 WBC 9.2 Hgb 14.7 Hct 44.0 Plt Count 351 right hand- + pustules on middle finger, decr swelling, decr erythema, incr rom nvi a/p Bedside I&D performed under sterile technique, cultures taken Iv abx as per ID elevation warm soaks will f/u d/w Dr. Hackett
--- NOTE | 2019-02-28 14:14 | PN ---
Progress Note, Physician History of Present Illness: REPORTS LESS R HAND PAIN/SWELLING NO C/O FEVER/ CHILLS REPORTS PAIN ON WT BEARING R FOOT PUS DRAINED FROM 2 PALMAR LESIONS TOLERATING ANTIBIOTIC VANCOMYCIN LEVEL PENDING - Current Medication List Current Medications: Active Medications Acetaminophen (Tylenol -) 650 mg PO Q6H PRN PRN Reason: PAIN LEVEL 7 - 10 Last Admin: 02/27/19 17:01 Dose: 650 mg Benzocaine (Anbesol -) 1 applic MM Q6H PRN PRN Reason: ORAL PAIN/MOUTH SORES Last Admin: 02/26/19 21:26 Dose: 1 applic Docusate Sodium (Colace -) 300 mg PO HS [facility] Last Admin: 02/27/19 21:22 Dose: Not Given Gabapentin (Neurontin -) 300 mg PO TID [facility] Last Admin: 02/28/19 06:48 Dose: 300 mg Heparin Sodium (Porcine) (Heparin -) 5,000 unit SQ BID [facility] Last Admin: 02/28/19 10:14 Dose: Not Given Vancomycin HCl (Vancomycin 1 Gm Premix -) 1 gm in 200 mls @ 400 mls/hr IVPB Q12H [facility]; Protocol Last Admin: 02/28/19 01:12 Dose: 400 mls/hr Ceftriaxone Sodium 2 gm/ (Dextrose) 100 mls @ 100 mls/hr IVPB DAILY [facility]; Protocol Last Admin: 02/28/19 10:01 Dose: 100 mls/hr Ibuprofen (Caldolor Injection -) 800 mg IVPB Q8H PRN PRN Reason: FEVER Last Admin: 02/25/19 14:30 Dose: 800 mg Morphine Sulfate (Msir -) 15 mg PO Q8H PRN PRN Reason: PAIN LEVEL 6-10 Last Admin: 02/28/19 06:47 Dose: 15 mg Morphine Sulfate (Ms Contin -) 15 mg PO BID [facility] Last Admin: 02/28/19 10:01 Dose: 15 mg Pantoprazole Sodium (Protonix -) 40 mg PO DAILY [facility] Last Admin: 02/28/19 10:01 Dose: 40 mg Potassium Chloride (K-Dur -) 40 meq PO DAILY [facility] Last Admin: 02/28/19 10:15 Dose: Not Given - Objective Vital Signs: Vital Signs Temperature 97.6 F 02/28/19 06:00 Pulse Rate 72 04/05/19 10:00 Respiratory Rate 18 02/28/19 10:00 Blood Pressure 148/90 02/28/19 10:00 O2 Sat by Pulse Oximetry (%) 97 02/28/19 09:00 Constitutional: Yes: No Distress Eyes: Yes: Conjunctiva Clear Cardiovascular: Yes: Regular Rate and Rhythm, S1, S2 Respiratory: Yes: CTA Bilaterally Gastrointestinal: Yes: Normal Bowel Sounds, Soft. No: Tenderness Extremities: No: Other (R HAND SWELLING AND ERYTHEMA CONTINUE TO IMPROVE. NO ERYTHEMA/SWELLING FOOT) Labs: CBC, BMP 02/28/19 08:00 02/28/19 08:00 INR, PTT INR 1.12 (0.83-1.09) H 02/24/19 11:51 Assessment/Plan CELLULITIS R HAND/ FOREARM BC NO GROWTH CONTINUE VANCOMYCIN/ CEFTRIAXONE ELEVATION
--- NOTE | 2019-02-28 15:16 | PN ---
Progress Note, Physician Chief Complaint: patient seen and examined continue iv abx stop kdur - Current Medication List Current Medications: Active Medications Acetaminophen (Tylenol -) 650 mg PO Q6H PRN PRN Reason: PAIN LEVEL 7 - 10 Last Admin: 02/27/19 17:01 Dose: 650 mg Benzocaine (Anbesol -) 1 applic MM Q6H PRN PRN Reason: ORAL PAIN/MOUTH SORES Last Admin: 02/26/19 21:26 Dose: 1 applic Docusate Sodium (Colace -) 300 mg PO HS [facility] Last Admin: 02/27/19 21:22 Dose: Not Given Gabapentin (Neurontin -) 300 mg PO TID [facility] Last Admin: 02/28/19 14:36 Dose: 300 mg Heparin Sodium (Porcine) (Heparin -) 5,000 unit SQ BID [facility] Last Admin: 02/28/19 10:14 Dose: Not Given Vancomycin HCl (Vancomycin 1 Gm Premix -) 1 gm in 200 mls @ 400 mls/hr IVPB Q12H [facility]; Protocol Last Admin: 02/28/19 14:37 Dose: 400 mls/hr Ceftriaxone Sodium 2 gm/ (Dextrose) 100 mls @ 100 mls/hr IVPB DAILY [facility]; Protocol Last Admin: 02/28/19 10:01 Dose: 100 mls/hr Ibuprofen (Caldolor Injection -) 800 mg IVPB Q8H PRN PRN Reason: FEVER Last Admin: 02/25/19 14:30 Dose: 800 mg Morphine Sulfate (Msir -) 15 mg PO Q8H PRN PRN Reason: PAIN LEVEL 6-10 Last Admin: 02/28/19 14:47 Dose: 15 mg Morphine Sulfate (Ms Contin -) 15 mg PO BID [facility] Last Admin: 02/28/19 10:01 Dose: 15 mg Pantoprazole Sodium (Protonix -) 40 mg PO DAILY [facility] Last Admin: 02/28/19 10:01 Dose: 40 mg - Objective Vital Signs: Vital Signs Temperature 97.6 F 02/28/19 06:00 Pulse Rate 72 02/28/19 10:00 Respiratory Rate 18 02/28/19 10:00 Blood Pressure 148/90 02/28/19 10:00 O2 Sat by Pulse Oximetry (%) 97 02/28/19 09:00 Constitutional: Yes: Calm Neck: Yes: Trachea Midline Cardiovascular: Yes: Regular Rate and Rhythm, S1, S2 Respiratory: Yes: CTA Bilaterally Gastrointestinal: Yes: Normal Bowel Sounds, Soft Musculoskeletal: Yes: Other (hand swelling erythema much impvored) Edema: RUE: 1+ Neurological: Yes: Alert, Oriented Labs: CBC, BMP 02/28/19 08:00 02/28/19 08:00 INR, PTT INR 1.12 (0.83-1.09) H 02/24/19 11:51 Problem List - Problems (1) Cellulitis of right foot Assessment/Plan: rocephin Code(s): L03.115 - CELLULITIS OF RIGHT LOWER LIMB (2) Cellulitis of right hand Assessment/Plan: same abx wbc [facility] ortho saw patient Code(s): L03.113 - CELLULITIS OF RIGHT UPPER LIMB (3) Hypokalemia Assessment/Plan: resolved Code(s): E87.6 - HYPOKALEMIA
[2019-02-28] MEDS ORDERED: oxyCODONE HCL 5 MG TABLET PO ONE (17:35)
[2019-02-28 18:41] VITALS: BP 135/86; PULSE 70; TEMP 98.1
--- NOTE | 2019-02-28 23:45 | HOSP ---
Subjective - Review of Symptoms Events since last encounter: Patient states he wants to leave. He says there is nothing to do here and he feels like he is in a box. He is anxious and agitated. He is currently being treated with ceftriaxone, Vancomycin for sepsis secondary to right hand/forearm cellulitis. I&D of pustules on right hand was done today - culture is pending. He was advised to continue treatment with the current IV antibiotics until the result of the culture is available. He understands that he has an infection and that if he doesn't complete the treatment, the infection could worsen. He says his brother is a nurse and told him he might have herpetic bharat. He says he will sign out against medical advice and go to "the [facility]" tomorrow because his sister advised him that is where he should have gone. Physical Examination Vital Signs: Vital Signs Temperature 98.1 F 02/28/19 18:38 Pulse Rate 70 02/28/19 18:38 Respiratory Rate 18 02/28/19 18:38 Blood Pressure 135/86 02/28/19 18:38 O2 Sat by Pulse Oximetry (%) 97 02/28/19 09:00 Labs: CBC, BMP 02/28/19 08:00 02/28/19 08:00
[2019-02-28] MEDS: DOCUSATE SODIUM 100 MG CAPSULE (FP) PO SCH (23:55)
== END 2019-02-28 23:40 | disposition left against medical advice (07) | DRG 383 ==
LOC: JER 23:05 → JERBED 02-25 00:52 → J5S 02-25 03:18
PROVIDERS: ADMIT Family Medicine; ATTEND Family Medicine
PROC: 0H9FXZX Drainage of Right Hand Skin, External Approach, Diagnostic (ICD-10-PCS; principal; 2019-02-25)
DX: L03.113 Cellulitis of right upper limb (principal); L03.115 Cellulitis of right lower limb; E87.6 Hypokalemia; L08.9 Local infection of the skin and subcutaneous tissue, unspecified; R45.1 Restlessness and agitation; B19.20 Unspecified viral hepatitis C without hepatic coma; F19.21 Other psychoactive substance dependence, in remission; F10.11 Alcohol abuse, in remission; F14.11 Cocaine abuse, in remission; F11.11 Opioid abuse, in remission; R74.8 Abnormal levels of other serum enzymes; F17.213 Nicotine dependence, cigarettes, with withdrawal; A41.9 Sepsis, unspecified organism
CPT/HCPCS: 36415; 71045-TC-FY; 73090-TC-RT-FY; 73130-TC-RT-FY; 73610-TC-RT-FY; 73630-TC-RT-FY; 80048; 80053; 80076; 80307; 81003; 83605; 84484; 85025; 85610; 85730; 86850; 86900; 86901; 87040; 87070; 87205; 93005; 93010; 97116-GP; 97161-GP; 99283-25; G0480; J1644

== ENCOUNTER 2019-03-06 20:53 | Inpatient (IN) | payer OTHER ==
[2019-03-06 21:28] VITALS: BMI 27.7
--- NOTE | 2019-03-06 21:50 | HP ---
COWS - Scale Resting Pulse: 1= [place] 81-100 Sweatin= Chills/Flushing Restless Observation: 5= Unable to Sit Still Pupil Size: 0= Normal to Room Light Bone or Joint Aches: 0= None (chronic lbp, r ankle pain) Runny Nose/ Eye Tearin= Runny Nose/Eyes GI Upset > 30mins: 3= Vomiting/Diarrhea Tremor Observation: 0= None Yawning Observation: 0= None Anxiety or Irritability: 2=Irritable/Anxious Goose Flesh Skin: 0=Smooth Skin COWS Score: 14 CIWA Score Nausea/Vomitin-Mild Nausea/No Vomiting Muscle Tremors: None Anxiety: 4-Mod. Anxious/Guarded Agitation: 4-Moderately Restless Paroxysmal Sweats: 3 Orientation: 1-Uncertain about Date Tacttile Disturbances: 0-None Auditory Disturbances: 0-None Visual Disturbances: 0-None Headache: 0-None Present CIWA-Ar Total Score: 13 - Admission Criteria [facility] Guidelines: Admission for Medically Managed Detox: Requires at least one of the followin. CIWA greater than 12 2. Seizures within the past 24 hours 3. Delirium tremens within the past 24 hours 4. Hallucinations within the past 24 hours 5. Acute intervention needed for co occurring medical disorder 6. Acute intervention needed for co occurring psychiatric disorder 7. Severe withdrawal that cannot be handled at a lower level of care (continued vomiting, continued diarrhea, abnormal vital signs) requiring intravenous medication and/or fluids 8. Patient presents the following: CIWA greater than 12 Admission Criteria Met: Admission criteria met Admission [facility] Chief Complaint: C/O WITHDRAWAL SX'S. SEEKING DETOX Allergies/Adverse Reactions: Allergies Allergy/AdvReac Type Severity Reaction Status Date / Time fish derived Allergy Severe Hives Verified 03/06/19 21:19 No Known Drug Allergies Allergy Unknown Verified 03/06/19 21:19 Fish Allergy Severe Hives Uncoded 10/02/18 08:57 NKDA Allergy Uncoded 10/02/18 08:57 History of Present Illness: 43 Y.O. MALE WITH MULTIPLE ADMISSION FOR DETOX FROM ALCOHOLISM AND OPIATES HERE FOR DETOX. CLIENT IS SELF REFERRED. PRESENTS WITH C/O WITHDRAWAL SX'S. COWS 14/ CIWA 13. DENIES HX/O DRUG OD, SEIZURES, BLACKOUTS. REPORTS LONGEST CLEAN TIME 9 MONTHS. CLIENT RECENTLY HOSPITALIZED AT [facility] 5 DAYS AG0 FOR R FOOT INFECTION. HE WAS NOT DETOXED AND WAS GETTING PAIN MGMT WHILE THERE. DOMICILED, DENIES LEGALS, UNEMPLOYED. Exam Limitations: No Limitations - Ebola screening Have you traveled outside of the country in the last 21 days: No (N) Have you had contact with anyone from an Ebola affected area: No Do you have a fever: No - Review of Systems Constitutional: Chills, Loss of Appetite, Changes in sleep EENT: reports: Nose Congestion, Other (RUNNY NOSE) Respiratory: reports: No Symptoms reported Cardiac: reports: No Symptoms Reported GI: reports: Vomiting : reports: No Symptoms Reported Musculoskeletal: reports: Back Pain (CHRONIC), Other (CHRONIC RIGHT FOOT PAIN) Integumentary: reports: Flushing Neuro: reports: No Symptoms reported Endocrine: reports: No Symptoms Reported Hematology: reports: No Symptoms Reported Psychiatric: reports: Orientated x3, Anxious Other Systems: Reviewed and Negative Patient History - Patient Medical History Hx Anemia: No Hx Asthma: No Hx Chronic Obstructive Pulmonary Disease (COPD): No Hx Cancer: No Hx Cardiac Disorders: No Hx Congestive Heart Failure: No Hx Hypertension: No Hx Hypercholesterolemia: No Hx Pacemaker: No HX Cerebrovascular Accident: No Hx Seizures: No Hx Diabetes: No Hx Gastrointestinal Disorders: No Hx Liver Disease: Yes (Hep C - TX'ED) Hx Genitourinary Disorders: No Hx Sexually Transmitted Disorders: No Hx Renal Disease (ESRD): No Hx Thyroid Disease: No Hx Human Immunodeficiency Virus (HIV): No (negative) Hx Hepatitis C: Yes (Tx 2005) Hx Depression: No Hx Suicide Attempt: No Hx Bipolar Disorder: No Hx Schizophrenia: No - Patient Surgical History Past Surgical History: Yes Hx Neurologic Surgery: No Hx Cataract Extraction: No Hx Cardiac Surgery: No Hx Lung Surgery: No Hx Breast Surgery: No Hx Breast Biopsy: No Hx Abdominal Surgery: Yes (LT INGUINAL HERNIA) Hx Appendectomy: No Hx Cholecystectomy: No Hx Genitourinary Surgery: No Hx Section: No Hx Orthopedic Surgery: Yes (R CALCANUEUS SX) Anesthesia Reaction: No - PPD History Previous Implant?: Yes Documented Results: Positive w/o proof Implanted On Prior [facility] Admission?: No Results: CXR(-)09/2018 PPD to be Administered?: No - Smoking Cessation Smoking history: Current every day smoker Have you smoked in the past 12 months: Yes Aproximately how many cigarettes per day: 10 Cigars Per Day: 0 Hx Chewing Tobacco Use: No Initiated information on smoking cessation: Yes 'Breaking Loose' booklet given: 03/06/19 - Substance & Tx. History Hx Alcohol Use: Yes Hx Substance Use: Yes Substance Use Type: Alcohol, Cocaine, Heroin, Marijuana Hx Substance Use Treatment: Yes ([facility]) - Substances abused Heroin Substance route: Injection Frequency: Daily Amount used: 7 or 8 bags Age of first use: 25 Date of last use: 03/06/19 Alcohol Substance route: Oral Frequency: Daily Amount used: couple pints of vodka/ 6 packs of beer Age of first use: 16 Date of last use: 03/06/19 Cocaine Substance route: Inhalation Frequency: 3-6 times per week Amount used: 40 to 50 bucks at a time Age of first use: 25 Date of last use: 03/05/19 Alprazolam (Xanax) Substance route: Oral Frequency: Daily Amount used: 2 sticks Age of first use: 42 Date of last use: 03/06/19 Marijuana/Hashish Substance route: Smoking Frequency: 1-2 times per week Amount used: 20 dollars at a time. Age of first use: 16 Date of last use: 03/05/19 Family Disease History - Family Disease History Family Disease History: Diabetes: Grandparent (dec), Father (dec), Other: Mother (alive and well) Admission Physical Exam S - Vital Signs Vital Signs: Vital Signs - 24 hr 03/06/19 21:21 Temperature 97.0 F L Pulse Rate 95 H Respiratory 16 Rate Blood Pressure 119/76 - Physical General Appearance: Yes: Disheveled, Tremorous (felt), Irritable, Anxious, Other (flushed) HEENTM: Yes: EOMI, Normocephalic, Normal Voice, STEPHANIE, Pharynx Normal, Nasal Congestion, Other (rinorrhea missing teeth) Respiratory: Yes: Chest Non-Tender, Lungs Clear, Normal Breath Sounds, No Respiratory Distress, No Accessory Muscle Use Neck: Yes: No masses,lesions,Nodules, Supple, Mass (left side of neck non tender soft to touch) Breast: Yes: Breast Exam Deferred Cardiology: Yes: Regular Rhythm, S1, S2, Tachycardia Abdominal: Yes: Normal Bowel Sounds, Non Tender, Flat, Soft Genitourinary: Yes: Within Normal Limits Back: Yes: Normal Inspection Musculoskeletal: Yes: full range of Motion, Gait Steady Extremities: Yes: Normal Capillary Refill, Normal Range of Motion, Non-Tender, Tremors (felt) Neurological: Yes: Fully Oriented, Alert, Motor Strength 5/5, Depressed Affect Integumentary: Yes: Dry, Warm, Other (flushed) Lymphatic: Yes: Within Normal Limits - Diagnostic (1) At risk for dehydration due to poor fluid intake Current Visit: Yes Status: Acute (2) Alcohol dependence with uncomplicated withdrawal Current Visit: Yes Status: Acute (3) Cannabis abuse Current Visit: Yes Status: Acute (4) Cocaine dependence Current Visit: Yes Status: Acute Qualifiers: Substance use status: uncomplicated Qualified Code(s): F14.20 - Cocaine dependence, uncomplicated (5) Nicotine dependence Current Visit: Yes Status: Chronic Qualifiers: Nicotine product type: cigarettes Substance use status: in withdrawal Qualified Code(s): F17.213 - Nicotine dependence, cigarettes, with withdrawal (6) Opioid dependence with withdrawal Current Visit: Yes Status: Acute (7) Hepatitis C Current Visit: Yes Status: Chronic Qualifiers: (8) History of positive PPD Current Visit: Yes Status: Chronic (9) Lumbago without sciatica Current Visit: Yes Status: Chronic Qualifiers: Back pain laterality: midline (10) Drug-induced mood disorder Current Visit: Yes Status: Chronic (11) Substance-induced sleep disorder Current Visit: Yes Status: Chronic Cleared for Admission [facility] - Detox or Rehab [facility] Level of Care: Medically Managed Detox Regimen/Protocol: Methadone/Librium Claeared for Rehab Admission: No Breathalyzer - Breathalyzer Breathalyzer: 0 Urine Drug Screen - Test Device Lot number: [id number] Expiration date: 02/23/20 - Control Is test valid?: Yes - Results Drug screen NEGATIVE: No Urine drug screen results: THC-Marijuana, BATOOL-Cocaine, MOP-Opiates, BZO- Benzodiazepines Inpatient Rehab Admission - Rehab Decision to Admit Inpatient rehab admission?: No
[2019-03-06] MEDS ORDERED: NALOXONE HCL 0.4 MG/ML VIAL IVPUSH PRN (22:17)
[2019-03-06] MEDS ORDERED: NICOTINE POLACRILEX 2 MG GUM BUC PRN (22:17)
[2019-03-06] MEDS ORDERED: MAGNESIUM HYDROX 2400MG/30ML ORAL SUSPENSION 30 ML CUP PO PRN (22:17)
[2019-03-06] MEDS ORDERED: MAG HYDROX/AL HYDROX/SIMETH 30 ML UNIT-DOSE CUP PO PRN (22:17)
[2019-03-06] MEDS ORDERED: cloNIDine HCL 0.1 MG TABLET PO PRN (22:17)
[2019-03-06] MEDS ORDERED: MENTHOL/PHENOL 1 EACH UD MM PRN (22:17)
[2019-03-06] MEDS ORDERED: guaiFENesin 200 MG/10 ML 10 ML UNIT-DOSE CUPS PO PRN (22:17)
[2019-03-06] MEDS ORDERED: hydrOXYzine PAMOATE 25 MG CAPSULE (FP) PO PRN (22:17)
[2019-03-06] MEDS ORDERED: IBUPROFEN 400 MG TABLET (FP) PO PRN (22:17)
[2019-03-06] MEDS ORDERED: P-EPHED 60MG/TRIPROLIDI 2.5MG TABLET PO PRN (22:17)
[2019-03-06] MEDS ORDERED: DICYCLOMINE HCL 10 MG CAPSULE PO PRN (22:17)
[2019-03-06] MEDS ORDERED: ACETAMINOPHEN 325 MG TABLET (FP) PO PRN (22:17)
[2019-03-06] MEDS ORDERED: chlordiazePOXIDE HCL 10 MG CAPSULE PO PRN (22:17)
[2019-03-06] MEDS ORDERED: ONDANSETRON *ODT* 4 MG TABLET SL PRN (22:17)
[2019-03-06] MEDS ORDERED: BISMUTH SUBSALICYLATE 524 MG/30 ML UD PO PRN (22:17)
[2019-03-06] MEDS ORDERED: MAGNESIUM CITRATE 300 ML BOTTLE PO PRN (22:17)
[2019-03-06] MEDS: chlordiazePOXIDE HCL 25 MG CAPSULE PO SCH (22:52)
[2019-03-06] MEDS ORDERED: METHADONE HCL 10 MG TABLET (FOR DETOX USE ONLY) PO ONE (23:00)
[2019-03-07] MEDS: chlordiazePOXIDE HCL 25 MG CAPSULE PO SCH ×2 (05:42→13:12)
[2019-03-07] MEDS ORDERED: METHADONE HCL 5 MG TABLET (FOR DETOX USE ONLY) PO ONE (10:00)
[2019-03-07] MEDS: PRENATAL VITAMINS W/ FOLIC ACID TABLET (FP) PO SCH (10:11)
[2019-03-07] MEDS: NICOTINE 21 MG/24 HOURS TOPICAL PATCH TD SCH (10:11)
[2019-03-07] MEDS: METHOCARBAMOL 500 MG TABLET PO PRN ×2 (10:13→22:26)
[2019-03-07 12:31] LABS: PH,URINE 5.5 (5.0-8.0); URINE APPEARANCE Clear; URINE BILIRUBIN Negative (NEGATIVE); URINE COLOR Yellow; URINE GLUCOSE (UA) Negative (NEGATIVE); URINE KETONE Negative (NEGATIVE); URINE LEUK ESTERASE Negative (NEGATIVE); URINE NITRITE Negative (NEGATIVE); URINE PROTEIN Negative (NEGATIVE); URINE UROBILINOGEN 0.2 mg/dL (0.2-1.0)
--- NOTE | 2019-03-07 13:34 | CONSULT ---
[facility] Psychiatric Consult - Data Date of interview: 03/07/19 Admission source: [facility] Identifying data: Patient is approached at bedside for the psychiatric interview. " I don't want to see psychiatrists. I am fine ". Mr Anguiano declines interview. Nursing staff is made aware.
--- NOTE | 2019-03-07 17:03 | PN ---
[facility] CIWA - CIWA Score Nausea/Vomitin-No Nausea/No Vomiting Muscle Tremors: 2 Anxiety: 4-Mod. Anxious/Guarded Agitation: 0-Normal Activity Paroxysmal Sweats: 3 Orientation: 0-Oriented Tacttile Disturbances: 0-None Auditory Disturbances: 2-Mild Harshness/Frighten Visual Disturbances: 2-Mild Sensitivity Headache: 0-None Present CIWA-Ar Total Score: 13 S COWS - Scale Resting Pulse: 1= [place] 81-100 Sweatin= Chills/Flushing Restless Observation: 1= Difficult to Sit Still Pupil Size: 0= Normal to Room Light Bone or Joint Aches: 2= Severe Diffuse Aches Runny Nose/ Eye Tearin= None GI Upset > 30mins: 0= None Tremor Observation of Outstretched Hands: 2= Slight Tremor Visible Yawning Observation: 1= 1-2x During Session Anxiety or Irritability: 2=Irritable/Anxious Goose Flesh Skin: 3=Piloerection COWS Score: 13 S Progress Note (SOAP) Subjective: Anxious, Sweating, Body Aches, Tremors. Objective: PATIENT A & O X 3. IN NO ACUTE DISTRESS. 03/07/19 17:01 Vital Signs Temperature 97.8 F 03/07/19 13:20 Pulse Rate 73 03/07/19 13:20 Respiratory Rate 18 03/07/19 13:20 Blood Pressure 132/73 03/07/19 13:20 O2 Sat by Pulse Oximetry (%) Laboratory Tests 03/07/19 00:05 Urine Color Yellow Urine Appearance Clear Urine pH 5.5 D Ur Specific [place] <= 1.005 L Urine Protein Negative Urine Glucose (UA) Negative Urine Ketones Negative Urine Blood Negative Urine Nitrite Negative Urine Bilirubin Negative Urine Urobilinogen 0.2 Ur Leukocyte Esterase Negative ADMISSION UA RESULTS NOTED. OTHER ADMISSION LAB RESULTS PENDING. 03/07/19 17:02 Assessment: 03/07/19 17:03 WITHDRAWAL SYMPTOMS. Plan: CONTINUE DETOX. INCREASE DAILY PO FLUID INTAKE.
[2019-03-07] MEDS: THIAMINE HCL 100 MG TABLET (FP) PO SCH (22:25)
[2019-03-07] MEDS: chlordiazePOXIDE 5 MG CAPSULE PO SCH (22:25)
[2019-03-08] MEDS: chlordiazePOXIDE 5 MG CAPSULE PO SCH ×2 (05:59→12:50)
[2019-03-08] MEDS: METHOCARBAMOL 500 MG TABLET PO PRN (06:06)
[2019-03-08] MEDS: PRENATAL VITAMINS W/ FOLIC ACID TABLET (FP) PO SCH (09:41)
[2019-03-08] MEDS: NICOTINE 21 MG/24 HOURS TOPICAL PATCH TD SCH (09:41)
[2019-03-08] MEDS ORDERED: METHADONE HCL 10 MG TABLET (FOR DETOX USE ONLY) PO ONE (10:00)
[2019-03-08] MEDS: ACETAMINOPHEN 325 MG TABLET (FP) PO PRN ×2 (12:50→22:34)
--- NOTE | 2019-03-08 13:28 | PN ---
S CIWA - CIWA Score Nausea/Vomitin-No Nausea/No Vomiting Muscle Tremors: 2 Anxiety: 4-Mod. Anxious/Guarded Agitation: 2 Paroxysmal Sweats: 3 Orientation: 0-Oriented Tacttile Disturbances: 0-None Auditory Disturbances: 0-None Visual Disturbances: 0-None Headache: 0-None Present CIWA-Ar Total Score: 11 BHS COWS - Scale Resting Pulse: 0= [place] 80 or Below Sweatin= Chills/Flushing Restless Observation: 1= Difficult to Sit Still Pupil Size: 0= Normal to Room Light Bone or Joint Aches: 2= Severe Diffuse Aches Runny Nose/ Eye Tearin= None GI Upset > 30mins: 0= None Tremor Observation of Outstretched Hands: 2= Slight Tremor Visible Yawning Observation: 1= 1-2x During Session Anxiety or Irritability: 2=Irritable/Anxious Goose Flesh Skin: 0=Smooth Skin COWS Score: 9 BHS Progress Note (SOAP) Subjective: Anxious, Tremors (Improving), Sweating, Body Aches, Tremors. Objective: PATIENT A & O X 3, OBSERVED AMBULATING ON UNIT. IN NO ACUTE DISTRESS. 03/08/19 13:25 Vital Signs Temperature 96.6 F L 03/08/19 09:26 Pulse Rate 73 03/08/19 09:26 Respiratory Rate 18 03/08/19 09:26 Blood Pressure 139/89 03/08/19 09:26 O2 Sat by Pulse Oximetry (%) Laboratory Tests 03/07/19 00:05 Urine Color Yellow Urine Appearance Clear Urine pH 5.5 D Ur Specific [place] <= 1.005 L Urine Protein Negative Urine Glucose (UA) Negative Urine Ketones Negative Urine Blood Negative Urine Nitrite Negative Urine Bilirubin Negative Urine Urobilinogen 0.2 Ur Leukocyte Esterase Negative ADMISSION UA RESULTS NOTED. PER TRANSPORTATION SPECIALIST NOTE, UNABLE TO OBTAIN BLOOD SAMPLE FOR OTHER LABS. 03/08/19 13:26 Assessment: 03/08/19 13:27 WITHDRAWAL SYMPTOMS. Plan: CONTINUE DETOX. INCREASE DAILY PO FLUID INTAKE.
[2019-03-08] MEDS ORDERED: chlordiazePOXIDE HCL 10 MG CAPSULE PO PRN (21:00)
[2019-03-08] MEDS: chlordiazePOXIDE HCL 10 MG CAPSULE PO SCH (22:00)
[2019-03-08] MEDS: THIAMINE HCL 100 MG TABLET (FP) PO SCH (22:32)
[2019-03-08] MEDS: MELATONIN 5 MG TABLETS PO PRN (22:33)
[2019-03-09] MEDS: chlordiazePOXIDE HCL 10 MG CAPSULE PO SCH ×3 (05:10→22:00)
[2019-03-09] MEDS ORDERED: METHADONE HCL 5 MG TABLET (FOR DETOX USE ONLY) PO ONE (06:00)
[2019-03-09] MEDS: NICOTINE 21 MG/24 HOURS TOPICAL PATCH TD SCH (10:08)
[2019-03-09] MEDS: PRENATAL VITAMINS W/ FOLIC ACID TABLET (FP) PO SCH (10:08)
--- NOTE | 2019-03-09 10:26 | PN ---
S CIWA - CIWA Score Nausea/Vomitin-Mild Nausea/No Vomiting Muscle Tremors: 2 Anxiety: 1-Mildly Anxious Agitation: 1-Slight > Activity Paroxysmal Sweats: 1-Minimal Palms Moist Orientation: 1-Uncertain about Date Tacttile Disturbances: 0-None Auditory Disturbances: 0-None Visual Disturbances: 0-None Headache: 0-None Present CIWA-Ar Total Score: 7 S COWS - Scale Resting Pulse: 0= [place] 80 or Below Sweatin= Chills/Flushing Restless Observation: 1= Difficult to Sit Still Pupil Size: 0= Normal to Room Light Bone or Joint Aches: 0= None Runny Nose/ Eye Tearin= None GI Upset > 30mins: 1= Stomach Cramp Tremor Observation of Outstretched Hands: 1= Tremor [place], Not Seen Yawning Observation: 0= None Anxiety or Irritability: 1=Feels Anxious/Irritable Goose Flesh Skin: 0=Smooth Skin COWS Score: 5 S Progress Note (SOAP) Subjective: trouble sleep at night seroquel 50 mg po x 1 Objective: 03/09/19 10:25 Vital Signs Temperature 95.9 F L 03/09/19 09:19 Pulse Rate 79 03/09/19 09:19 Respiratory Rate 18 03/09/19 09:19 Blood Pressure 132/80 03/09/19 09:19 O2 Sat by Pulse Oximetry (%) Laboratory Last Values Urine Color Yellow 03/07/19 00:05 Urine Appearance Clear 03/07/19 00:05 Urine pH 5.5 (5.0-8.0) D 03/07/19 00:05 Ur Specific [place] <= 1.005 (1.010-1.035) L 03/07/19 00:05 Urine Protein Negative (NEGATIVE) 03/07/19 00:05 Urine Glucose (UA) Negative (NEGATIVE) 03/07/19 00:05 Urine Ketones Negative (NEGATIVE) 03/07/19 00:05 Urine Blood Negative (NEGATIVE) 03/07/19 00:05 Urine Nitrite Negative (NEGATIVE) 03/07/19 00:05 Urine Bilirubin Negative (NEGATIVE) 03/07/19 00:05 Urine Urobilinogen 0.2 mg/dL (0.2-1.0) 03/07/19 00:05 Ur Leukocyte Esterase Negative (NEGATIVE) 03/07/19 00:05 03/09/19 10:26lab see 02/28/19 Laboratory Last Values Urine Color Yellow 03/07/19 00:05 Urine Appearance Clear 03/07/19 00:05 Urine pH 5.5 (5.0-8.0) D 03/07/19 00:05 Ur Specific [place] <= 1.005 (1.010-1.035) L 03/07/19 00:05 Urine Protein Negative (NEGATIVE) 03/07/19 00:05 Urine Glucose (UA) Negative (NEGATIVE) 03/07/19 00:05 Urine Ketones Negative (NEGATIVE) 03/07/19 00:05 Urine Blood Negative (NEGATIVE) 03/07/19 00:05 Urine Nitrite Negative (NEGATIVE) 03/07/19 00:05 Urine Bilirubin Negative (NEGATIVE) 03/07/19 00:05 Urine Urobilinogen 0.2 mg/dL (0.2-1.0) 03/07/19 00:05 Ur Leukocyte Esterase Negative (NEGATIVE) 03/07/19 00:05 Assessment: 03/09/19 10:27 withdrawal sx Plan: continue detox
[2019-03-09] MEDS ORDERED: QUEtiapine FUMARATE 50 MG TABLET PO ONE (22:00)
[2019-03-09] MEDS: THIAMINE HCL 100 MG TABLET (FP) PO SCH (22:18)
[2019-03-09] MEDS: MELATONIN 5 MG TABLETS PO PRN (22:18)
[2019-03-10 09:01] VITALS: BP 119/69; PULSE 74; TEMP 97.8
--- NOTE | 2019-03-10 11:27 | DS ---
[facility] Detox Discharge Summary Admission Date: 03/06/19 Discharge Date: 03/10/19 - History Present History: Alcohol Dependence, Opioid Dependence Additional Comments: 43 years old male admitted on 03/06/19 for alcohol and opiate withdrawal stabilization completed detox regimen aftercare [facility] Pertinent Past History: bring in medication list and lab result to aftercare appointment strong recommend community health services as primary care - Physical Exam Results Vital Signs: Vital Signs Temperature 97.8 F 03/10/19 09:01 Pulse Rate 74 03/10/19 09:01 Respiratory Rate 18 03/10/19 09:01 Blood Pressure 119/69 03/10/19 09:01 O2 Sat by Pulse Oximetry (%) Pertinent Admission Physical Exam Findings: alcohol and opiate withdrawal sx Laboratory Last Values Urine Color Yellow 03/07/19 00:05 Urine Appearance Clear 03/07/19 00:05 Urine pH 5.5 (5.0-8.0) D 03/07/19 00:05 Ur Specific Maidens <= 1.005 (1.010-1.035) L 03/07/19 00:05 Urine Protein Negative (NEGATIVE) 03/07/19 00:05 Urine Glucose (UA) Negative (NEGATIVE) 03/07/19 00:05 Urine Ketones Negative (NEGATIVE) 03/07/19 00:05 Urine Blood Negative (NEGATIVE) 03/07/19 00:05 Urine Nitrite Negative (NEGATIVE) 03/07/19 00:05 Urine Bilirubin Negative (NEGATIVE) 03/07/19 00:05 Urine Urobilinogen 0.2 mg/dL (0.2-1.0) 03/07/19 00:05 Ur Leukocyte Esterase Negative (NEGATIVE) 03/07/19 00:05 see 02/25/19-02/28/19 ER lab - Treatment Hospital Course: Detox Protocol Followed, Detoxed Safely, Responded well, Discharged Condition Good, Rehab Referral Accepted Patient has Accepted a Rehab Referral to: patient declined [facility] - Medication Discharge Medications: Ambulatory Orders Albuterol Sulfate Inhaler - [Ventolin HFA Inhaler -] 1 - 2 inh PO QID #1 inhaler 10/02/18 - Diagnosis (1) Alcohol dependence with uncomplicated withdrawal Status: Acute (2) Opioid dependence with withdrawal Status: Acute (3) Substance induced mood disorder Status: Suspected (4) Hepatitis C Status: Chronic Qualifiers: Viral hepatitis chronicity: unspecified Hepatic coma status: without hepatic coma Qualified Code(s): B19.20 - Unspecified viral hepatitis C without hepatic coma (5) Nicotine dependence Status: Acute Qualifiers: Nicotine product type: cigarettes Substance use status: in withdrawal Qualified Code(s): F17.213 - Nicotine dependence, cigarettes, with withdrawal (6) PPD positive, treated Status: Resolved - AMA Did Patient Leave Against Medical Advice: No
== END 2019-03-10 10:00 | disposition home or self-care (01) | DRG 773 ==
LOC: YASAS 20:53 → Y3N 22:17
PROVIDERS: ADMIT Surgery; ATTEND Surgery
PROC: HZ2ZZZZ Detoxification Services for Substance Abuse Treatment (ICD-10-PCS; principal; 2019-03-06)
DX: F10.230 Alcohol dependence with withdrawal, uncomplicated (principal); F11.23 Opioid dependence with withdrawal; F13.20 Sedative, hypnotic or anxiolytic dependence, uncomplicated; F14.20 Cocaine dependence, uncomplicated; F12.20 Cannabis dependence, uncomplicated; F17.213 Nicotine dependence, cigarettes, with withdrawal; F19.282 Other psychoactive substance dependence with psychoactive substance-induced sleep disorder; F19.24 Other psychoactive substance dependence with psychoactive substance-induced mood disorder; B18.2 Chronic viral hepatitis C; R76.11 Nonspecific reaction to tuberculin skin test without active tuberculosis; M54.5 Low back pain; G89.29 Other chronic pain; Z91.013 Allergy to seafood; Z91.89 Other specified personal risk factors, not elsewhere classified
CPT/HCPCS: 81003

== ENCOUNTER 2019-03-14 00:26 | Inpatient (IN) | payer OTHER ==
--- NOTE | 2019-03-14 01:06 | PDOC ---
History of Present Illness - General Stated Complaint: R HAND SWELLING Time Seen by Provider: 03/14/19 01:05 History Source: Patient Exam Limitations: No Limitations - History of Present Illness Initial Comments: 03/14/19 01:34 43 year old male with PMH cellulitis, prior IVDA (last used 7-8 months ago), prior cocaine/ETOH/opiate abuse, HCV presented to ED for right hand swelling/ pain/redness starting yesterday. He admitted to fever of 103F, he took Tylenol at home around 1900. He denied nausea, vomiting, chest pain, shortness of breath , lightheadedness, abdominal pain. He stated he had similar symptoms 02/25, but also in his right foot, and was admitted for IV antibiotics, then left AMA on . Allergies: Fish, NKDA Past History - Past Medical History Allergies/Adverse Reactions: Allergies Allergy/AdvReac Type Severity Reaction Status Date / Time fish derived Allergy Severe Hives Verified 03/06/19 21:19 No Known Drug Allergies Allergy Unknown Verified 03/06/19 21:19 tramadol Allergy Hives Verified 03/14/19 12:58 Fish Allergy Severe Hives Uncoded 10/02/18 08:57 NKDA Allergy Uncoded 10/02/18 08:57 Home Medications: Ambulatory Orders Albuterol Sulfate Inhaler - [Ventolin HFA Inhaler -] 1 - 2 inh PO QID #1 inhaler 10/02/18 Gabapentin 600 mg PO TID 03/14/19 Oxycodone HCl 10 mg PO QID 03/14/19 Anemia: No Asthma: No Cancer: No Cardiac Disorders: No CVA: No COPD: No CHF: No DVT: No Diabetes: No GI Disorders: No Disorders: No HTN: No Hypercholesterolemia: No Kidney Stones: No Liver Disease: Yes (Hep C - TX'ED) Seizures: No Thyroid Disease: No - Surgical History Abdominal Surgery: Yes (LT INGUINAL HERNIA) Appendectomy: No Cardiac Surgery: No Cholecystectomy: No Lung Surgery: No Neurologic Surgery: No Orthopedic Surgery: Yes (R CALCANUEUS SX) - Reproductive History Testicular Surgery: No - Suicide/Smoking/Psychosocial Hx Smoking Status: Yes Smoking History: Current every day smoker Have you smoked in the past 12 months: Yes Number of Cigarettes Smoked Daily: 10 If you are a former smoker, when did you quit?: 2018 Cigars Per Day: 0 'Breaking Loose' booklet given: 03/06/19 Hx Alcohol Use: Yes Drug/Substance Use Hx: Yes Substance Use Type: Alcohol, Cocaine, Heroin, Marijuana Hx Substance Use Treatment: Yes ([facility]) Review of Systems - Review of Systems Able to Perform ROS?: Yes Comments:: 03/14/19 01:37 General: denied fever, chills, generalized weakness. HEENT: denied sore throat, rhinorrhea, ear pain. Heart: denied chest pain, palpitations, syncope, diaphoresis. Respiratory: denied shortness of breath, cough, sputum production, hemoptysis. Abdomen: denied abdominal pain, nausea, vomiting, diarrhea, constipation, blood in stool. : denied dysuria, increased urinary frequency, hematuria, urinary incontinence , flank pain. Back: denied back pain. Musculoskeletal: admitted to right hand swelling/pain. Neurological: denied headache, dizziness, numbness, tingling, weakness. Skin: admitted to right hand redness. denied laceration, abrasion. *Physical Exam - Physical Exam Comments: 03/14/19 01:37 Constitutional: Well-nourished, Well-developed, appearing stated age. HEENT: head is normocephalic, atraumatic. EOMI. PERRLA. Neck: supple. Full ROM. Heart: regular rhythm. no murmurs, rubs or gallops. Lungs: clear to auscultation bilaterally. no crackles, rhonchi or wheezing. no stridor. Abdomen: soft, nontender. normal bowel sounds. no rebound, guarding, masses. Extremities: right hand diffusely swollen and tender to palpation. decreased ROM all fingers secondary to pain. peripheral pulses intact. no lower extremity edema. Neurological: CN 2-12 grossly intact. moves all four extremities. Psych: awake, alert, oriented x3. follows commands. answers questions appropriately. Skin: diffuse erythema to right hand. no streaking. ED Treatment Course - LABORATORY CBC & Chemistry Diagram: 03/14/19 01:45 03/14/19 03:14 Medical Decision Making - Medical Decision Making 03/14/19 01:38 43 year old male with above PMH presented to ED for right hand swelling/redness/ pain. Initial Vital Signs Temp Pulse Resp BP Pulse Ox 97.5 F L 85 16 145/89 97 03/14/19 00:55 03/14/19 00:55 03/14/19 00:55 03/14/19 00:55 03/14/19 00:55 Afebrile. No tachycardia. No tachypnea. Mild hypertension. No hypoxia on room air. Imaging ordered: right hand XR Medications ordered: tylenol IV, clindamycin, vancomycin EKG performed at 0433: rate 73, regular rhythm, normal axis, no acute ST changes. 03/14/19 02:38 CBC WBC 8.6 K/mm3 (4.0-10.0) 03/14/19 01:45 RBC 4.90 M/mm3 (4.00-5.60) 03/14/19 01:45 Hgb 14.6 GM/dL (11.7-16.9) 03/14/19 01:45 Hct 43.3 % (35.4-49) 03/14/19 01:45 MCV 88.5 fl (80-96) 03/14/19 01:45 MCH 29.8 pg (25.7-33.7) 03/14/19 01:45 MCHC 33.7 g/dl (32.0-35.9) 03/14/19 01:45 RDW 14.6 % (11.9-15.9) 03/14/19 01:45 Plt Count 380 K/MM3 (134-434) 03/14/19 01:45 MPV 8.7 fl (7.5-11.1) 03/14/19 01:45 Absolute Neuts (auto) 3.7 K/mm3 (1.5-8.0) 03/14/19 01:45 Neutrophils % 42.5 % (42.8-82.8) L 03/14/19 01:45 Lymphocytes % 44.0 % (8-40) H D 03/14/19 01:45 Monocytes % 8.9 % (3.8-10.2) 03/14/19 01:45 Eosinophils % 3.4 % (0-4.5) 03/14/19 01:45 Basophils % 1.2 % (0-2.0) 03/14/19 01:45 Nucleated RBC % 0 % (0-0) 03/14/19 01:45 No leukocytosis. No anemia. 03/14/19 03:07 Hand XR my and Dr. Salazar's interpretation: no soft tissue air. no acute fracture/ dislocation. -Pending official read. CMP was cancelled by lab. Redraw being sent. 03/14/19 03:34 Pt reported continued pain despite Tylenol administration. Medications ordered: Morphine 4 mg IV 03/14/19 04:24 CMP Sodium 141 mmol/L (136-145) 03/14/19 03:14 Potassium 3.9 mmol/L (3.5-5.1) 03/14/19 03:14 Chloride 106 mmol/L (98-107) 03/14/19 03:14 Carbon Dioxide 30 mmol/L (21-32) 03/14/19 03:14 Anion Gap 5 MMOL/L (8-16) L 03/14/19 03:14 BUN 17 mg/dL (7-18) 03/14/19 03:14 Creatinine 1.0 mg/dL (0.55-1.3) 03/14/19 03:14 Creat Clearance w eGFR 81.55 (>60) 03/14/19 03:14 Random Glucose 98 mg/dL (74-106) 03/14/19 03:14 Lactic Acid 1.1 mmol/L (0.4-2.0) 03/14/19 01:45 Calcium 8.3 mg/dL (8.5-10.1) L 03/14/19 03:14 Phosphorus 3.6 mg/dL (2.5-4.9) 03/14/19 03:14 Magnesium 2.3 mg/dL (1.8-2.4) 03/14/19 03:14 Total Bilirubin 0.6 mg/dL (0.2-1) 03/14/19 03:14 AST 31 U/L (15-37) 03/14/19 03:14 ALT 47 U/L (13-61) 03/14/19 03:14 Alkaline Phosphatase 84 U/L (45-117) 03/14/19 03:14 Total Protein 6.5 g/dl (6.4-8.2) 03/14/19 03:14 Albumin 3.4 g/dl (3.4-5.0) 03/14/19 03:14 No electrolyte abnormalities. No Amanda. No lactic acidosis. No transaminitis. Pt reassessed, hand cellulitis increasing in size. Pt to be admitted for hand cellulitis. Pending admission. Microblog sent. 03/15/19 16:10 Follow up: -CXR report: no acute chest pathology, angles not completely visualized. -Hand XR report: no acute fracture/subluxation. some swelling noted. *DC/Admit/Observation/Transfer Diagnosis at time of Disposition: Cellulitis of hand - Discharge Dispostion Disposition: AGAINST MEDICAL ADVICE Condition at time of disposition: Stable Decision to Admit order: Yes - Referrals - Patient Instructions - Post Discharge Activity
[2019-03-14 01:09] VITALS: BMI 27.7
[2019-03-14] MEDS ORDERED: VANCOMYCIN 1,000 MG in DEXTROSE 5%-WATER - 250 ML IVPB ONE (01:39)
[2019-03-14] MEDS ORDERED: ACETAMINOPHEN 325 MG TABLET (FP) PO ONE (01:39)
[2019-03-14] MEDS ORDERED: CLINDAMYCIN 600MG PREMIX IVPB 600 MG/50 ML BAG IVPB ONE ×2 (01:40→02:15)
[2019-03-14] MEDS ORDERED: SODIUM CHLORIDE 1,000 ML IV STA (01:41)
[2019-03-14] MEDS ORDERED: ACETAMINOPHEN 325 MG TABLET (FP) ONE (02:09)
[2019-03-14] MEDS ORDERED: CLINDAMYCIN PHOSPHATE 600 MG/4 ML VIAL ONE (02:10)
[2019-03-14] MEDS ORDERED: VANCOMYCIN 1 GRAM (PRE-DOCKED) 1,000 MG/250 ML BAG IVPB ONE (02:10)
[2019-03-14 02:19] LABS: BASO % 1.2 % (0-2.0); EOS % 3.4 % (0-4.5); HEMATOCRIT 43.3 % (35.4-49); HEMOGLOBIN 14.6 GM/dL (11.7-16.9); MCH 29.8 pg (25.7-33.7); MCHC 33.7 g/dl (32.0-35.9); MEAN CELL VOLUME 88.5 fl (80-96); MEAN PLT VOLUME 8.7 fl (7.5-11.1); MONO % 8.9 % (3.8-10.2); NEUT % 42.5 % (42.8-82.8); PLATELET COUNT 380 K/MM3 (134-434); RDW 14.6 % (11.9-15.9); WHITE BLOOD COUNT 8.6 K/mm3 (4.0-10.0)
[2019-03-14 02:34] LABS: INR 0.98 (0.83-1.09); PROTHROMBIN TIME (PATIENT) 11.6 SEC (9.7-13.0)
[2019-03-14 02:37] LABS: ACTIVATED PTT 36.2 SECONDS (25.2-36.5)
--- NOTE | 2019-03-14 03:13 | PDOC ---
Attending Attestation - Resident Resident Name: Shae Pina - ED Attending Attestation I have performed the following: I have examined & evaluated the patient, The case was reviewed & discussed with the resident, I agree w/resident's findings & plan, Exceptions are as noted - HPI HPI: 03/14/19 06:06 43M pmh of polysubstance abuse, HCV here for right hand pain and swelling states that it is new since yesterday. EMR chart review shows he was admitted to this facility for the same complaint where he was being treated with IV abx and he left AMA on 02/28/19. Pt states that he is now febrile 103F at home, no other complaints. - Physicial Exam PE: 03/14/19 06:08 R hand with notable swelling to the dorsum and global erythema up to the wrist No streaking, no proximal LAD ROM decreased 2/2 px and swelling Decreased sensation to light touch on palmar suface, inconsistent with a single dermatomal distribution. SILT dorsal surface - Medical Decision Making 03/14/19 06:09 Here for R hand cellulitis, high risk patient, partial treatment earlier this month f/u labs, xr admit for abx
[2019-03-14] MEDS ORDERED: morphine CARPU-JECT 4 MG/1 ML DISP.SYRIN IVPUSH ONE (03:30)
[2019-03-14] MEDS ORDERED: morphine SULFATE 4 MG/ML VIAL ONE (03:55)
[2019-03-14 04:19] LABS: ALBUMIN 3.4 g/dl (3.4-5.0); ALK PHOS 84 U/L (45-117); ANION GAP 5 MMOL/L (8-16); BILIRUBIN,TOTAL 0.6 mg/dL (0.2-1); BLOOD UREA NITROGEN 17 mg/dL (7-18); CALCIUM 8.3 mg/dL (8.5-10.1); CHLORIDE 106 mmol/L (98-107); CO2 30 mmol/L (21-32); GLUCOSE,RANDOM 98 mg/dL (74-106); MAGNESIUM 2.3 mg/dL (1.8-2.4); PHOSPHOROUS 3.6 mg/dL (2.5-4.9); POTASSIUM 3.9 mmol/L (3.5-5.1); SGOT/AST 31 U/L (15-37); SGPT/ALT 47 U/L (13-61); SODIUM 141 mmol/L (136-145); TOT PROT 6.5 g/dl (6.4-8.2)
--- NOTE | 2019-03-14 04:51 | HP ---
Admitting History and Physical - Primary Care Physician PCP: Main [facility] - Admission Chief Complaint: Right Hand Swelling, Pain History of Present Illness: This is a 43 y/o man with Hepatitis C, Polysubstance Abuse Heroin IV, Cocaine, Marijuana, Xanax, Alcohol, multiple admissions for Detox, most recent 03/07-. Who presents to the ED with right hand swelling, redness, pain and fever. Patient was admitted 02/25/19 for Cellulitis of R- hand/forearm and R- foot, per records patient signed out AMA on 02/28/19. Patient reports acute onset of erythema, swelling and pain to right hand with decreased sensation to digits 2- 5. Patient denies fall or trauma. Patient denies skin popping or IVDU since completing detox. Patient reports subjective fever 101 with chills. He states" I took Tylenol at home" Patient denies dizziness, SOB, CP, palpitations, AP, N/V /D, constipation. History Source: Patient, Medical Record Limitations to Obtaining History: Poor Historian - Past Medical History Hepatobiliary: Yes: Hepatitis C - Past Surgical History Additional Past Surgical History: R- Calcaneus - Smoking History Smoking history: Current every day smoker Have you smoked in the past 12 months: Yes Aproximately how many cigarettes per day: 10 If you are a former smoker, when did you quit?: 2018 - Alcohol/Substance Use Hx Alcohol Use: Yes History of Substance Use: reports: Cocaine, Heroin, Marijuana, Prescription ( Xanax) - Social History ADL: Independent History of Recent Travel: No Home Medications - Allergies Allergies/Adverse Reactions: Allergies Allergy/AdvReac Type Severity Reaction Status Date / Time fish derived Allergy Severe Hives Verified 03/06/19 21:19 No Known Drug Allergies Allergy Unknown Verified 03/06/19 21:19 Fish Allergy Severe Hives Uncoded 10/02/18 08:57 NKDA Allergy Uncoded 10/02/18 08:57 - Home Medications Home Medications: Ambulatory Orders Albuterol Sulfate Inhaler - [Ventolin HFA Inhaler -] 1 - 2 inh PO QID #1 inhaler 10/02/18 Gabapentin 600 mg PO TID 03/14/19 Oxycodone HCl 10 mg PO QID 03/14/19 Family Disease History - Family Disease History Family Disease History: Diabetes: Grandparent (dec), Father (dec), Other: Mother (alive and well) Review of Systems - Review of Systems Constitutional: reports: Chills, Fever Eyes: reports: No Symptoms HENT: reports: No Symptoms Neck: reports: No Symptoms Cardiovascular: reports: No Symptoms Respiratory: reports: No Symptoms Gastrointestinal: reports: No Symptoms Genitourinary: reports: No Symptoms Breasts: reports: No Symptoms Reported Musculoskeletal: reports: Extremity Pain, Joint Pain Integumentary: reports: Erythema Neurological: reports: Numbness, Parasthesia Endocrine: reports: No Symptoms Hematology/Lymphatic: reports: No Symptoms Psychiatric: reports: No Symptoms Pain Intensity: 6 Physical Examination Vital Signs: Vital Signs Temperature 97.5 F L 03/14/19 00:55 Pulse Rate 85 03/14/19 00:55 Respiratory Rate 16 03/14/19 00:55 Blood Pressure 145/89 03/14/19 00:55 O2 Sat by Pulse Oximetry (%) 97 03/14/19 00:55 Constitutional: Yes: Anxious, Other (restless) Eyes: Yes: Conjunctiva Clear, EOM Intact, PERRL (pupils dilated) HENT: Yes: WNL, Atraumatic, Normocephalic Neck: Yes: WNL, Supple, Trachea Midline Cardiovascular: Yes: WNL, Regular Rate and Rhythm, S1, S2 Respiratory: Yes: WNL, Regular, CTA Bilaterally Gastrointestinal: Yes: WNL, Normal Bowel Sounds, Soft Renal/: Yes: WNL Breast(s): Yes: WNL Musculoskeletal: Yes: Joint Swelling, Other Extremities: Yes: Erythema Peripheral Pulses WNL: Yes Integumentary: Yes: Erythema Wound/Incision: Yes: Reddened Neurological: Yes: Alert, Oriented, Cran Nerves II-XII Intact, Loss of Sensation (right digit 3), Paresthesia ( right digits 2-5) Psychiatric: Yes: Alert, Oriented Labs: CBC, BMP 03/14/19 01:45 03/14/19 03:14 Laboratory Results - last 24 hr 03/14/19 03/14/19 03/14/19 01:45 01:45 01:45 WBC 8.6 RBC 4.90 Hgb 14.6 Hct 43.3 MCV 88.5 MCH 29.8 MCHC 33.7 RDW 14.6 Plt Count 380 MPV 8.7 Absolute Neuts (auto) 3.7 Neutrophils % 42.5 L Lymphocytes % 44.0 H D Monocytes % 8.9 Eosinophils % 3.4 Basophils % 1.2 Nucleated RBC % 0 PT with INR 11.60 INR 0.98 PTT (Actin FS) 36.2 Sodium Cancelled Potassium Cancelled Chloride Cancelled Carbon Dioxide Cancelled Anion Gap Cancelled BUN Cancelled Creatinine Cancelled Creat Clearance w eGFR Cancelled Random Glucose Cancelled Lactic Acid Calcium Cancelled Phosphorus Cancelled Magnesium Cancelled Total Bilirubin Cancelled AST Cancelled ALT Cancelled Alkaline Phosphatase Cancelled Total Protein Cancelled Albumin Cancelled 03/14/19 03/14/19 03/14/19 01:45 01:45 03:14 WBC RBC Hgb Hct MCV MCH MCHC RDW Plt Count MPV Absolute Neuts (auto) Neutrophils % Lymphocytes % Monocytes % Eosinophils % Basophils % Nucleated RBC % PT with INR INR PTT (Actin FS) Sodium 141 Potassium 3.9 Chloride 106 Carbon Dioxide 30 Anion Gap 5 L BUN 17 Creatinine 1.0 Creat Clearance w eGFR 81.55 Random Glucose 98 Lactic Acid 1.1 Calcium 8.3 L Phosphorus Cancelled 3.6 Magnesium 2.3 Total Bilirubin 0.6 AST 31 ALT 47 Alkaline Phosphatase 84 Total Protein 6.5 Albumin 3.4 Intake & Output 03/11/19 03/12/19 03/13/19 03/14/19 23:59 23:59 23:59 23:59 Weight 80.286 kg Current Medications Generic Name Dose Route Start Last Admin Trade Name Freq PRN Reason Stop Dose Admin Heparin Sodium (Porcine) 5,000 unit 03/14/19 10:00 Heparin - SQ BID YOSELIN Vancomycin HCl 1,000 mg/ 250 mls @ 166.667 mls/hr 03/14/19 15:00 Dextrose IVPB Q12H YOSELIN Protocol Ceftriaxone Sodium 2 gm/ 100 mls @ 200 mls/hr 03/14/19 10:00 Dextrose IVPB DAILY YOSELIN Protocol Ibuprofen 600 mg 03/14/19 06:18 Motrin - PO Q8H PRN PAIN LEVEL 4 - 6 Morphine Sulfate 4 mg 03/14/19 10:00 Morphine Sulfate IVPUSH 03/14/19 10:01 ONCE ONE Imaging - Results Chest X-ray: Image Reviewed X-ray: Image Reviewed Problem List - Problems (1) Cellulitis of right hand Code(s): L03.113 - CELLULITIS OF RIGHT UPPER LIMB (2) Polysubstance abuse Code(s): F19.10 - OTHER PSYCHOACTIVE SUBSTANCE ABUSE, UNCOMPLICATED (3) Hepatitis C Code(s): B19.20 - UNSPECIFIED VIRAL HEPATITIS C WITHOUT HEPATIC COMA Qualifiers: Assessment/Plan This is a 43 y/o man with Hepatitis C, Polysubstance Abuse Heroin IV, Cocaine, Marijuana, Xanax, Alcohol, multiple admissions for Detox, recent admission for Cellulitis 02/25/19- 02/26/19 (AMA). Admitted for R- Hand Cellulitis for further evaluation of their emergent condition. Plan: See Problem List FEN PO fluids as tolerated Replete lytes prn Regular Diet DVT ppx OOB SCDs Heparin SQ Code Status: Full Code Dispo: Requires Inpatient Care Visit type - Emergency Visit Emergency Visit: Yes ED Registration Date: 03/14/19 Care time: The patient presented to the Emergency Department on the above date and was hospitalized for further evaluation of their emergent condition. - New Patient This patient is new to me today: Yes Date on this admission: 03/14/19 - Critical Care Critical Care patient: No
[2019-03-14] MEDS ORDERED: IBUPROFEN 600 MG TABLET (FP) PO PRN ×2 (06:15→06:18)
[2019-03-14 08:17] LABS: PH,URINE 5.5 (5.0-8.0); URINE APPEARANCE CLEAR; URINE BILIRUBIN 1+ (NEGATIVE); URINE COLOR DK YELLOW; URINE GLUCOSE (UA) NEGATIVE (NEGATIVE); URINE KETONE NEGATIVE (NEGATIVE); URINE LEUK ESTERASE NEGATIVE (NEGATIVE); URINE NITRITE NEGATIVE (NEGATIVE); URINE PROTEIN NEGATIVE (NEGATIVE)
[2019-03-14 08:36] LABS: PHENCYCLIDINE,URINE NEGATIVE ng/ml (CUTOFF=25); URINE AMPHETAMINES NEGATIVE ng/ml (CUTOFF=500); URINE BARBITURATES NEGATIVE ng/ml (CUTOFF=200)
[2019-03-14 08:46] LABS: URINE BENZODIAZEPINES POSITIVE ng/ml (CUTOFF=200)
[2019-03-14 08:47] LABS: COCAINE, UR POSITIVE ng/ml (CUTOFF=300); METHADONE, UR POSITIVE ng/ml (CUTOFF=300); OPIATES, URI POSITIVE ng/ml (CUTOFF=300)
[2019-03-14] MEDS ORDERED: DEXTROSE 5%-WATER 100 ML IVPB ONE (09:26)
[2019-03-14] MEDS ORDERED: traMADol HCL 50 MG TABLET PO PRN (09:33)
--- NOTE | 2019-03-14 09:35 | PN ---
Progress Note, Physician Chief Complaint: Cellulitis History of Present Illness: Previous notes and events reviewed awake and alert NAD complain of R hand pain--R hand xray neg for fracture - Current Medication List Current Medications: Active Medications Heparin Sodium (Porcine) (Heparin -) 5,000 unit SQ BID YOSELIN Vancomycin HCl 1,000 mg/ (Dextrose) 250 mls @ 166.667 mls/hr IVPB Q12H YOSELIN; Protocol Ceftriaxone Sodium 2 gm/ (Dextrose) 100 mls @ 200 mls/hr IVPB DAILY YOSELIN; Protocol Ibuprofen (Motrin -) 600 mg PO Q8H PRN PRN Reason: PAIN LEVEL 4 - 6 Morphine Sulfate (Morphine Sulfate) 4 mg IVPUSH ONCE ONE Stop: 03/14/19 10:01 - Objective Vital Signs: Vital Signs Temperature 97.4 F L 03/14/19 06:07 Pulse Rate 76 03/14/19 06:07 Respiratory Rate 16 03/14/19 00:55 Blood Pressure 120/78 03/14/19 06:07 O2 Sat by Pulse Oximetry (%) 94 L 03/14/19 07:05 Constitutional: Yes: No Distress, Calm Eyes: Yes: Conjunctiva Clear HENT: Yes: Atraumatic Cardiovascular: Yes: Regular Rate and Rhythm Respiratory: Yes: Regular, CTA Bilaterally Gastrointestinal: Yes: Normal Bowel Sounds, Soft Musculoskeletal: Yes: WNL Edema: Yes (R hand) Integumentary: Yes: Erythema (minor, R hand), Other (mild edema R hand) Neurological: Yes: Alert, Oriented Psychiatric: Yes: Alert, Oriented Labs: CBC, BMP 03/14/19 01:45 03/14/19 03:14 INR, PTT INR 0.98 (0.83-1.09) 03/14/19 01:45 - ....Imaging X-ray: Report Reviewed Problem List - Problems (1) Cellulitis of hand Assessment/Plan: -IV Vancomycin and Ceftriaxine -no leukocytosis -afebrile -Hand xray negative -pain management Code(s): L03.119 - CELLULITIS OF UNSPECIFIED PART OF LIMB (2) Polysubstance abuse Assessment/Plan: -u-tox positive -New Source referral on discharge Code(s): F19.10 - OTHER PSYCHOACTIVE SUBSTANCE ABUSE, UNCOMPLICATED Assessment/Plan see problem list dvt ppx
[2019-03-14] MEDS ORDERED: CEFTRIAXONE 2 GM in DEXTROSE 5%-WATER 100 ML IVPB SCH (10:00)
[2019-03-14] MEDS ORDERED: morphine SULFATE 4 MG/ML VIAL IVPUSH ONE (10:00)
[2019-03-14] MEDS: HEPARIN NA (PORCINE) 5,000 UNITS/ML 1ML VIAL SQ SCH ×2 (10:27→22:25)
--- NOTE | 2019-03-14 10:31 | EKG ---
Test Reason : Blood Pressure : / mmHG Vent. Rate : 073 BPM Atrial Rate : 073 BPM P-R Int : 202 ms QRS Dur : 096 ms QT Int : 398 ms P-R-T Axes : 072 081 038 degrees QTc Int : 438 ms NORMAL SINUS RHYTHM Confirmed by RAYMOND GONSALVES MD ([id number]) on 03/14/2019 10:31:19 AM Referred By: Confirmed By:RAYMOND GONSALVES MD
--- NOTE | 2019-03-14 14:59 | PN ---
Progress Note (short form) - Note Progress Note: ID CONSULT DICTATED ? RECURRENT CELLULITIS R HAND ? REFLEX SYMPATHETIC DYSTROPHY HX POLYSUBSTANCE ABUSE PENDING C/S EMPIRIC VANCOMYCIN/ CEFTRIAXONE HAND SURGERY EVALUATION ?RHEUMATOLOGY EVALUATION TO R/O RSD HIV TEST (PT CONSENTS)
[2019-03-14] MEDS ORDERED: VANCOMYCIN 1 GM PREMIX - 1 GM/200 ML BAG IVPB SCH ×2 (15:00→18:45)
[2019-03-14] MEDS ORDERED: VANCOMYCIN 1,000 MG in DEXTROSE 5%-WATER - 250 ML IVPB SCH (15:00)
--- NOTE | 2019-03-14 15:17 | CONS ---
DATE OF CONSULTATION: 03/14/2019 HISTORY OF PRESENT ILLNESS: The patient is a 43-year-old male who is evaluated for recurrent cellulitis of the right hand. He was recently hospitalized at [facility] from February 25 through February 28 with cellulitis of the right hand. He received a course of IV antibiotic therapy, but signed out against medical advice after 3 days. He does not give a reliable history. He states that the hand improved. However, one day prior to his present admission, he developed worsening right hand pain and swelling. He also reported fever to 103. He presented to the emergency room where an x-ray of the hand was performed and was negative. He was empirically treated with vancomycin and ceftriaxone. He denies any traumatic injury to his hand, denies any injection drug use into the hand. PAST MEDICAL HISTORY: Positive for polysubstance abuse, history of intravenous drug use (last used 7-8 months ago according to the patient), hepatitis C treated also as per patient. LABORATORY DATA: White count 8.6. Creatinine 1.0. Liver enzymes normal. Blood cultures are pending. PHYSICAL EXAMINATION: General: He is awake and alert. He is in no acute distress. Vital signs: Temperature 97.4, blood pressure 120/78, pulse 76 and regular, respirations 20 per minute. Heart: Heart sounds S1, S2. No murmur. Lungs: Clear. Abdomen: Soft, nontender. Extremities: Examination of the right hand, there is swelling of the right hand involving the dorsal and palmar aspects. There is erythema present extending from the mid dorsum of the hand to the fingers. He is unable to fully clinch his fist secondary to the swelling. There is no appreciable warmth. There is an area of nodular swelling approximately 2 cm in diameter above the dorsum of the hand between the 2nd and 3rd metacarpals. There is no fluctuance, no lymphangitic streaking, no epitrochlear or axillary adenopathy. IMPRESSION: 1. Recurrent right hand cellulitis. 2. History of polysubstance abuse. Await cultures, obtain hand surgery evaluation, empiric antibiotic coverage with vancomycin and ceftriaxone. Reasons for recurrent cellulitis of his hand not clear. Patient adamantly denies any traumatic injury or injection drug use into that hand. An alternative diagnosis would be reflex sympathetic dystrophy, which can mimic cellulitis. This would be diagnosed by cafe aide which can be done either as an inpatient or post discharge. Thank you for the kind referral. RAYMOND RAMOS M.D. [id number]
[2019-03-14] MEDS ORDERED: ACETAMINOPHEN 325 MG TABLET (FP) PO PRN (16:18)
[2019-03-14] MEDS ORDERED: oxyCODONE HCL 5 MG TABLET PO PRN (16:18)
[2019-03-14] MEDS ORDERED: PT OWN MED DRAWER 7, Y5N ONE (23:04)
--- NOTE | 2019-03-15 02:18 | HOSP ---
Physical Examination Vital Signs: Vital Signs Temperature 98.4 F 03/14/19 17:28 Pulse Rate 88 03/14/19 17:28 Respiratory Rate 18 03/14/19 17:28 Blood Pressure 140/72 03/14/19 17:28 O2 Sat by Pulse Oximetry (%) 94 L 03/14/19 07:05 Labs: CBC, BMP 03/14/19 01:45 03/14/19 03:14 Hospitalist Encounter Assessment: I was informed by the nurse that patient suddenly became agitated, angry, eloped from hospital, refused to sign AMA form. I did not get a chance to see him as patient has already left. He is a known IV drug abuser.
[2019-03-15 03:14] VITALS: BP 142/70; PULSE 72; TEMP 97.8
== END 2019-03-15 02:23 | disposition left against medical advice (07) | DRG 383 ==
LOC: JER 00:26 → JERBED 04:25 → J8W 08:21
PROVIDERS: ADMIT Family Medicine; ATTEND Family Medicine
DX: L03.113 Cellulitis of right upper limb (principal); F17.210 Nicotine dependence, cigarettes, uncomplicated; F19.10 Other psychoactive substance abuse, uncomplicated; Z86.19 Personal history of other infectious and parasitic diseases
CPT/HCPCS: 36415; 71045-TC-FY; 73130-TC-RT-FY; 80053; 80307; 81003; 83605; 83735; 84100; 85025; 85610; 85730; 86850; 86900; 86901; 87040; 93005; 93010; 99285-25; J7030

== ENCOUNTER 2019-03-23 08:47 | Inpatient (IN) | payer OTHER ==
[2019-03-23 10:35] VITALS: BMI 27.3
--- NOTE | 2019-03-23 12:01 | HP ---
COWS - Scale Resting Pulse: 1= [place] 81-100 Sweatin= Chills/Flushing Restless Observation: 3= Extraneous Movement Pupil Size: 1= Pupils >than Normal Bone or Joint Aches: 2= Severe Diffuse Aches Runny Nose/ Eye Tearin= Runny Nose/Eyes GI Upset > 30mins: 2= Nausea/Diarrhea Tremor Observation: 2= Slight Tremor Visible Yawning Observation: 2= >3x During Session Anxiety or Irritability: 2=Irritable/Anxious Goose Flesh Skin: 0=Smooth Skin COWS Score: 18 CIWA Score Nausea/Vomitin Muscle Tremors: 3 Anxiety: 3 Agitation: 2 Paroxysmal Sweats: 1-Minimal Palms Moist Orientation: 0-Oriented Tacttile Disturbances: 1-Very Mild Itch/Numbness Auditory Disturbances: 1-Very Mild Visual Disturbances: 0-None Headache: 2-Mild CIWA-Ar Total Score: 15 - Admission Criteria [facility]ASAS Guidelines: Admission for Medically Managed Detox: Requires at least one of the followin. CIWA greater than 12 2. Seizures within the past 24 hours 3. Delirium tremens within the past 24 hours 4. Hallucinations within the past 24 hours 5. Acute intervention needed for co occurring medical disorder 6. Acute intervention needed for co occurring psychiatric disorder 7. Severe withdrawal that cannot be handled at a lower level of care (continued vomiting, continued diarrhea, abnormal vital signs) requiring intravenous medication and/or fluids 8. Admission ROS S - [facility] Chief Complaint: i need help to stop using heroin,alcohol,xanax,cocaine, Allergies/Adverse Reactions: Allergies Allergy/AdvReac Type Severity Reaction Status Date / Time fish derived Allergy Severe Hives Verified 03/23/19 10:28 tramadol Allergy Hives Verified 03/23/19 10:28 Fish Allergy Severe Hives Uncoded 10/02/18 08:57 History of Present Illness: this 43 years old male with heroin,alcohol,cocaine,xanax,marijuana dependence, seeking detox,withdrawal symptom, last detox 03/06/19 to 03/10/19 extensive history of polysubstance dependence and alcoholism with multiple admissions to detox and rehab hepatitis c treated nicotine dependence 1/2 pack requesting nicotine patch weight loss longest period of sobriety 9 months plan for rehab after detox also has swelling with redness of right hand for 4 days Exam Limitations: No Limitations - Ebola screening Have you traveled outside of the country in the last 21 days: No (N) Have you had contact with anyone from an Ebola affected area: No Do you have a fever: No - Review of Systems Constitutional: Chills, Loss of Appetite, Malaise, Night Sweats, Changes in sleep, Weakness, Unintentional Wgt. Loss EENT: reports: Tearing, Nose Congestion Respiratory: reports: No Symptoms reported Cardiac: reports: No Symptoms Reported GI: reports: Diarrhea, Nausea, Poor Appetite, Vomiting, Abdominal cramping : reports: No Symptoms Reported Musculoskeletal: reports: Back Pain, Joint Pain, Muscle Pain, Joint Stiffness Integumentary: reports: Dryness, Other (redness and swelling of right hand) Neuro: reports: Headache, Tremors Endocrine: reports: No Symptoms Reported Hematology: reports: No Symptoms Reported Psychiatric: reports: No Sypmtoms Reported, Mood/Affect Appropiate, Orientated x3, Depressed Other Systems: Reviewed and Negative Patient History - Patient Medical History Hx Anemia: No Hx Asthma: No Hx Chronic Obstructive Pulmonary Disease (COPD): No Hx Cancer: No Hx Cardiac Disorders: No Hx Congestive Heart Failure: No Hx Hypertension: No Hx Hypercholesterolemia: No Hx Pacemaker: No HX Cerebrovascular Accident: No Hx Seizures: No Hx Diabetes: No Hx Gastrointestinal Disorders: No Hx Liver Disease: Yes (Hep C - [place]) Hx Genitourinary Disorders: No Hx Sexually Transmitted Disorders: No Hx Renal Disease (ESRD): No Hx Thyroid Disease: No Hx Human Immunodeficiency Virus (HIV): No (negative last 03/06/19 to 03/10/19) Hx Hepatitis C: Yes (Tx 2005) Hx Depression: No Hx Suicide Attempt: No Hx Bipolar Disorder: No Hx Schizophrenia: No Other Medical History: no suicidal,no homicidal - Patient Surgical History Past Surgical History: Yes Hx Neurologic Surgery: No Hx Cataract Extraction: No Hx Cardiac Surgery: No Hx Lung Surgery: No Hx Breast Surgery: No Hx Breast Biopsy: No Hx Abdominal Surgery: Yes (LT INGUINAL HERNIA) Hx Appendectomy: No Hx Cholecystectomy: No Hx Genitourinary Surgery: No Hx Section: No Hx Orthopedic Surgery: Yes (R CALCANUEUS surgery 10/06/18 at [facility]) Anesthesia Reaction: No - PPD History Previous Implant?: Yes Documented Results: Positive w/proof Implanted On Prior R Admission?: No Results: CXR(-)09/2018 PPD to be Administered?: No - Smoking Cessation Smoking history: Current every day smoker Have you smoked in the past 12 months: Yes Aproximately how many cigarettes per day: 10 If you are a former smoker, when did you quit?: 2017 Cigars Per Day: 0 Hx Chewing Tobacco Use: No Initiated information on smoking cessation: Yes 'Breaking Loose' booklet given: 03/23/19 - Substance & Tx. History Hx Alcohol Use: Yes Hx Substance Use: Yes Substance Use Type: Alcohol, Cocaine, Heroin, Marijuana, Tranquilizers - Substances abused Heroin Substance route: Injection Frequency: Daily Amount used: 1 BUNDLE Age of first use: 25 Date of last use: 03/23/19 Alcohol Substance route: Oral Frequency: Daily Amount used: couple pints of vodka/ 6 packs of beer Age of first use: 16 Date of last use: 03/23/19 Cocaine Substance route: Inhalation Frequency: 3-6 times per week Amount used: 40 to 50 bucks at a time Age of first use: 25 Date of last use: 03/22/19 Alprazolam (Xanax) Substance route: Oral Frequency: Daily Amount used: 2 sticks Age of first use: 42 Date of last use: 03/22/19 Marijuana/Hashish Substance route: Smoking Frequency: 1-2 times per week Amount used: 20 dollars at a time. Age of first use: 16 Date of last use: 03/23/19 Family Disease History - Family Disease History Family Disease History: Diabetes: Grandparent (dec), Father (,dsa), Other: Mother (alive and well) Admission Physical Exam [facility] - Vital Signs Vital Signs: Vital Signs - 24 hr 03/23/19 03/23/19 10:30 10:45 Temperature 97.0 F L 97.0 F L Pulse Rate 83 83 Respiratory 20 20 Rate Blood Pressure 131/86 131/86 - Physical General Appearance: Yes: Moderate Distress, Tremorous, Irritable, Sweating, Anxious HEENTM: Yes: Normal ENT Inspection, STEPHANIE, Pharynx Normal, Tm's normal Respiratory: Yes: Lungs Clear, Normal Breath Sounds, No Respiratory Distress Neck: Yes: Within Normal Limits, Supple, Trachea in good position Breast: Yes: Within Normal Limits Cardiology: Yes: Within Normal Limits, Regular Rhythm, Regular Rate, S1, S2 Abdominal: Yes: Within Normal Limits, Normal Bowel Sounds, Non Tender, Flat, Soft, Surgical Scar Genitourinary: Yes: Within Normal Limits Back: Yes: Normal Inspection, Muscle Spasm Musculoskeletal: Yes: Back pain, Joint Stiffness, Muscle Pain Extremities: Yes: Within Normal Limits, Normal Range of Motion, Tremors, Swelling, Other (fx of calcaneus) Neurological: Yes: outside repairer special II-XII NML intact, Fully Oriented, Alert, Motor Strength 5/5 Integumentary: Yes: Dry, Track Alcantar (cellulitis of right hand) Lymphatic: Yes: Within Normal Limits - Diagnostic (1) Opioid dependence with withdrawal Current Visit: No Status: Acute (2) Weight loss Current Visit: No Status: Acute (3) Alcohol dependence with uncomplicated withdrawal Current Visit: No Status: Acute (4) Cocaine dependence Current Visit: No Status: Acute Qualifiers: Substance use status: uncomplicated Qualified Code(s): F14.20 - Cocaine dependence, uncomplicated (5) Dehydration Current Visit: No Status: Acute (6) Nicotine dependence Current Visit: No Status: Acute Qualifiers: Nicotine product type: cigarettes Substance use status: in withdrawal Qualified Code(s): F17.213 - Nicotine dependence, cigarettes, with withdrawal (7) PPD positive, treated Current Visit: No Status: Resolved (8) Uncomplicated sedative, hypnotic or anxiolytic withdrawal Current Visit: Yes Status: Acute (9) IVDU (intravenous drug user) Current Visit: Yes Status: Acute (10) Hepatitis C Current Visit: No Status: Chronic Qualifiers: (11) Calcaneal fracture Current Visit: Yes Status: Acute (12) Cellulitis of hand Current Visit: No Status: Acute (13) Cellulitis of right hand Current Visit: No Status: Acute Cleared for Admission S - Detox or Rehab [facility] Level of Care: Medically Managed Detox Regimen/Protocol: Methadone/Librium Breathalyzer - Breathalyzer Breathalyzer: 0 Urine Drug Screen - Test Device Lot number: [id number] Expiration date: 10/25/20 - Control Is test valid?: Yes - Results Drug screen NEGATIVE: No Urine drug screen results: THC-Marijuana, BATOOL-Cocaine, MET-Methamphetamine, FEN- Fentanyl, MOP-Opiates, BZO-Benzodiazepines, BUP-Suboxone Inpatient Rehab Admission - Rehab Decision to Admit Inpatient rehab admission?: No
[2019-03-23] MEDS ORDERED: MAG HYDROX/AL HYDROX/SIMETH 30 ML UNIT-DOSE CUP PO PRN (12:17)
[2019-03-23] MEDS ORDERED: ACETAMINOPHEN 325 MG TABLET (FP) PO PRN ×2 (12:17)
[2019-03-23] MEDS ORDERED: MAGNESIUM HYDROX 2400MG/30ML ORAL SUSPENSION 30 ML CUP PO PRN (12:17)
[2019-03-23] MEDS ORDERED: MAGNESIUM CITRATE 300 ML BOTTLE PO PRN (12:17)
[2019-03-23] MEDS ORDERED: MENTHOL/PHENOL 1 EACH UD MM PRN (12:17)
[2019-03-23] MEDS ORDERED: hydrOXYzine PAMOATE 25 MG CAPSULE (FP) PO PRN (12:17)
[2019-03-23] MEDS ORDERED: BISMUTH SUBSALICYLATE 524 MG/30 ML UD PO PRN (12:17)
[2019-03-23] MEDS ORDERED: cloNIDine HCL 0.1 MG TABLET PO PRN (12:17)
[2019-03-23] MEDS ORDERED: METHOCARBAMOL 500 MG TABLET PO PRN (12:17)
[2019-03-23] MEDS ORDERED: chlordiazePOXIDE HCL 25 MG CAPSULE PO PRN (12:27)
[2019-03-23] MEDS ORDERED: METHADONE HCL 10 MG TABLET (FOR DETOX USE ONLY) PO ONE ×2 (13:30→23:00)
[2019-03-23] MEDS: IBUPROFEN 400 MG TABLET (FP) PO PRN (13:53)
[2019-03-23] MEDS: chlordiazePOXIDE HCL 25 MG CAPSULE PO SCH ×3 (13:53→22:59)
[2019-03-23 17:13] LABS: EPI CELLS 1.3 /HPF (0-5/HPF); PH,URINE 5.5 (5.0-8.0); URINE APPEARANCE TURBID; URINE BACTERIA 0.8 /hpf (NEGATIVE); URINE BILIRUBIN 1+ (NEGATIVE); URINE CASTS 9 /lpf (0-8); URINE COLOR DK YELLOW; URINE GLUCOSE (UA) NEGATIVE (NEGATIVE); URINE KETONE TRACE (NEGATIVE); URINE LEUK ESTERASE TRACE (NEGATIVE); URINE NITRITE NEGATIVE (NEGATIVE); URINE PROTEIN NEGATIVE (NEGATIVE); URINE RBC 7 /hpf (0-4); URINE WBC 6 /hpf (0-5)
[2019-03-23] MEDS: CEPHALEXIN MONOHYDRATE 500 MG CAPSULE (UD) PO SCH (18:10)
[2019-03-23] MEDS: THIAMINE HCL 100 MG TABLET (FP) PO SCH (22:59)
[2019-03-24] MEDS: CEPHALEXIN MONOHYDRATE 500 MG CAPSULE (UD) PO SCH ×5 (00:55→23:41)
[2019-03-24] MEDS: chlordiazePOXIDE HCL 25 MG CAPSULE PO SCH ×4 (06:17→22:44)
[2019-03-24] MEDS ORDERED: METHADONE HCL 10 MG TABLET (FOR DETOX USE ONLY) PO ONE (10:00)
[2019-03-24] MEDS: PRENATAL VITAMINS W/ FOLIC ACID TABLET (FP) PO SCH (10:26)
--- NOTE | 2019-03-24 11:53 | PN ---
[facility] CIWA - CIWA Score Nausea/Vomitin-No Nausea/No Vomiting Muscle Tremors: 3 Anxiety: 3 Agitation: 3 Paroxysmal Sweats: 3 Orientation: 0-Oriented Tacttile Disturbances: 0-None Auditory Disturbances: 0-None Visual Disturbances: 0-None Headache: 0-None Present CIWA-Ar Total Score: 12 S COWS - Scale Resting Pulse: 0= [place] 80 or Below Sweatin=Flushed/Facial Moisture Restless Observation: 1= Difficult to Sit Still Pupil Size: 0= Normal to Room Light Bone or Joint Aches: 2= Severe Diffuse Aches Runny Nose/ Eye Tearin= Runny Nose/Eyes GI Upset > 30mins: 1= Stomach Cramp Tremor Observation of Outstretched Hands: 2= Slight Tremor Visible Yawning Observation: 2= >3x During Session Anxiety or Irritability: 2=Irritable/Anxious Goose Flesh Skin: 3=Piloerection COWS Score: 17 S Progress Note (SOAP) Subjective: irritable body aches sweats shakes agitation interrupted sleep Objective: 03/24/19 11:48 Vital Signs Temperature 97.2 F L 03/24/19 09:16 Pulse Rate 79 03/24/19 09:16 Respiratory Rate 18 03/24/19 09:16 Blood Pressure 146/83 03/24/19 09:16 O2 Sat by Pulse Oximetry (%) Laboratory Tests 03/23/19 15:52 Urine Color Dk yellow Urine Appearance Turbid Urine pH 5.5 Ur Specific [place] 1.030 Urine Protein Negative Urine Glucose (UA) Negative Urine Ketones Trace H Urine Blood Negative Urine Nitrite Negative Urine Bilirubin 1+ H Urine Urobilinogen 1.0 Ur Leukocyte Esterase Trace Urine WBC (Auto) 6 Urine RBC (Auto) 7 Urine Casts (Auto) 9 U Epithel Cells (Auto) 1.3 Urine Bacteria (Auto) 0.8 rest of labs pending aaox 3 ambulating no acute distress Assessment: 03/24/19 11:49 withdrawal sx right hand swelling noted; pt has ordered ABX. pt states its getting better just feeling big Plan: continue detox increase fluids encouraged to keep arm elevated and continue ABX
[2019-03-24] MEDS: THIAMINE HCL 100 MG TABLET (FP) PO SCH (22:43)
[2019-03-25] MEDS: CEPHALEXIN MONOHYDRATE 500 MG CAPSULE (UD) PO SCH ×4 (05:59→23:10)
[2019-03-25] MEDS: chlordiazePOXIDE HCL 25 MG CAPSULE PO SCH (05:59)
[2019-03-25] MEDS ORDERED: METHADONE HCL 10 MG TABLET (FOR DETOX USE ONLY) PO ONE (10:00)
[2019-03-25] MEDS: PRENATAL VITAMINS W/ FOLIC ACID TABLET (FP) PO SCH (10:10)
[2019-03-25] MEDS: chlordiazePOXIDE HCL 10 MG CAPSULE PO SCH ×3 (10:56→22:49)
[2019-03-25] MEDS ORDERED: chlordiazePOXIDE HCL 10 MG CAPSULE PO PRN (11:00)
--- NOTE | 2019-03-25 11:02 | PN ---
[facility] CIWA - CIWA Score Nausea/Vomitin-No Nausea/No Vomiting Muscle Tremors: 2 Anxiety: 3 Agitation: 3 Paroxysmal Sweats: 2 Orientation: 0-Oriented Tacttile Disturbances: 0-None Auditory Disturbances: 0-None Visual Disturbances: 0-None Headache: 0-None Present CIWA-Ar Total Score: 10 S COWS - Scale Resting Pulse: 1= [place] 81-100 Sweatin=Flushed/Facial Moisture Restless Observation: 1= Difficult to Sit Still Pupil Size: 0= Normal to Room Light Bone or Joint Aches: 2= Severe Diffuse Aches Runny Nose/ Eye Tearin= None GI Upset > 30mins: 0= None Tremor Observation of Outstretched Hands: 1= Tremor [place], Not Seen Yawning Observation: 1= 1-2x During Session Anxiety or Irritability: 2=Irritable/Anxious Goose Flesh Skin: 0=Smooth Skin COWS Score: 10 [facility] Progress Note (SOAP) Subjective: sweats shakes body aches right foot pain with swelling from an old injury. Objective: 03/25/19 11:01 Vital Signs Temperature 97.7 F 03/25/19 10:25 Pulse Rate 89 03/25/19 10:25 Respiratory Rate 18 03/25/19 10:25 Blood Pressure 152/89 03/25/19 10:25 O2 Sat by Pulse Oximetry (%) Laboratory Tests 03/23/19 15:52 Urine Color Dk yellow Urine Appearance Turbid Urine pH 5.5 Ur Specific [place] 1.030 Urine Protein Negative Urine Glucose (UA) Negative Urine Ketones Trace H Urine Blood Negative Urine Nitrite Negative Urine Bilirubin 1+ H Urine Urobilinogen 1.0 Ur Leukocyte Esterase Trace Urine WBC (Auto) 6 Urine RBC (Auto) 7 Urine Casts (Auto) 9 U Epithel Cells (Auto) 1.3 Urine Bacteria (Auto) 0.8 labs reordered for today aaox3 ambulating no acute distress Assessment: 03/25/19 11:04 withdrawal sx Plan: continue detox increase fluids foot x-ray ordered for tomorrow cane ordered
[2019-03-25] MEDS: THIAMINE HCL 100 MG TABLET (FP) PO SCH (22:49)
[2019-03-25] MEDS: IBUPROFEN 400 MG TABLET (FP) PO PRN (22:50)
[2019-03-25] MEDS: MELATONIN 5 MG TABLETS PO PRN (22:51)
[2019-03-26] MEDS: chlordiazePOXIDE HCL 10 MG CAPSULE PO SCH ×3 (06:46→22:23)
[2019-03-26] MEDS: CEPHALEXIN MONOHYDRATE 500 MG CAPSULE (UD) PO SCH ×4 (06:46→23:58)
[2019-03-26] MEDS ORDERED: METHADONE HCL 10 MG TABLET (FOR DETOX USE ONLY) ONE (08:51)
[2019-03-26] MEDS ORDERED: METHADONE HCL 5 MG TABLET (FOR DETOX USE ONLY) ONE (08:51)
[2019-03-26] MEDS ORDERED: METHADONE (DETOX) 10 MG, METHADONE (DETOX) 5 MG PO ONE (10:00)
[2019-03-26] MEDS ORDERED: METHADONE HCL 10 MG TABLET (FOR DETOX USE ONLY) PO ONE (10:00)
[2019-03-26] MEDS: PRENATAL VITAMINS W/ FOLIC ACID TABLET (FP) PO SCH (10:14)
--- NOTE | 2019-03-26 10:55 | PN ---
[facility] CIWA - CIWA Score Nausea/Vomitin-No Nausea/No Vomiting Muscle Tremors: 2 Anxiety: 2 Agitation: 3 Paroxysmal Sweats: 2 Orientation: 0-Oriented Tacttile Disturbances: 0-None Auditory Disturbances: 0-None Visual Disturbances: 0-None Headache: 0-None Present CIWA-Ar Total Score: 9 [facility] COWS - Scale Resting Pulse: 0= [place] 80 or Below Sweatin=Flushed/Facial Moisture Restless Observation: 1= Difficult to Sit Still Pupil Size: 0= Normal to Room Light Bone or Joint Aches: 1= Mild Discomfort Runny Nose/ Eye Tearin= None GI Upset > 30mins: 1= Stomach Cramp Tremor Observation of Outstretched Hands: 1= Tremor [place], Not Seen Yawning Observation: 1= 1-2x During Session Anxiety or Irritability: 2=Irritable/Anxious Goose Flesh Skin: 0=Smooth Skin COWS Score: 9 [facility] Progress Note (SOAP) Subjective: sweats shakes body aches restless Objective: 03/26/19 10:51 Vital Signs Temperature 97.9 F 03/26/19 09:09 Pulse Rate 72 03/26/19 09:09 Respiratory Rate 18 03/26/19 09:09 Blood Pressure 144/92 03/26/19 09:09 O2 Sat by Pulse Oximetry (%) Laboratory Tests 03/23/19 15:52 Urine Color Dk yellow Urine Appearance Turbid Urine pH 5.5 Ur Specific [place] 1.030 Urine Protein Negative Urine Glucose (UA) Negative Urine Ketones Trace H Urine Blood Negative Urine Nitrite Negative Urine Bilirubin 1+ H Urine Urobilinogen 1.0 Ur Leukocyte Esterase Trace Urine WBC (Auto) 6 Urine RBC (Auto) 7 Urine Casts (Auto) 9 U Epithel Cells (Auto) 1.3 Urine Bacteria (Auto) 0.8 labs pending aaox3 ambulating no acute distress Assessment: 03/26/19 10:53 withdrawal sx Plan: continue detox increase fluids pending xray results
[2019-03-26] MEDS: MELATONIN 5 MG TABLETS PO PRN (22:23)
[2019-03-26] MEDS: THIAMINE HCL 100 MG TABLET (FP) PO SCH (22:30)
[2019-03-27] MEDS: CEPHALEXIN MONOHYDRATE 500 MG CAPSULE (UD) PO SCH (05:47)
[2019-03-27] MEDS ORDERED: METHADONE HCL 10 MG TABLET (FOR DETOX USE ONLY) PO ONE ×2 (06:00→10:00)
[2019-03-27] MEDS ORDERED: METHADONE HCL 5 MG TABLET (FOR DETOX USE ONLY) PO ONE (06:00)
--- NOTE | 2019-03-27 09:05 | DS ---
[facility] Detox Discharge Summary Admission Date: 03/23/19 Discharge Date: 03/27/19 - History Present History: Alcohol Dependence, Opioid Dependence - Physical Exam Results Vital Signs: Vital Signs Temperature 97.3 F L 03/27/19 06:28 Pulse Rate 64 03/27/19 06:28 Respiratory Rate 18 03/27/19 06:28 Blood Pressure 138/88 03/27/19 06:28 O2 Sat by Pulse Oximetry (%) - Treatment Hospital Course: Detox Protocol Followed, Detoxed Safely, Responded well, Discharged Condition Good, Rehab Referral Accepted - Medication Discharge Medications: Ambulatory Orders NK [No Known Home Medication] 03/23/19 - Diagnosis (1) IVDU (intravenous drug user) Current Visit: Yes Status: Chronic (2) Uncomplicated sedative, hypnotic or anxiolytic withdrawal Current Visit: Yes Status: Chronic (3) Abnormal AST and ALT Current Visit: Yes Status: Chronic (4) Alcohol dependence with uncomplicated withdrawal Current Visit: Yes Status: Chronic (5) At risk for dehydration due to poor fluid intake Current Visit: Yes Status: Chronic (6) Cannabis abuse Current Visit: Yes Status: Acute (7) Cellulitis of right hand Current Visit: Yes Status: Acute (8) Insomnia Current Visit: No Status: Acute (9) Low back pain Current Visit: No Status: Acute Qualifiers: Chronicity: unspecified Back pain laterality: unspecified (10) Nicotine dependence Current Visit: Yes Status: Chronic Qualifiers: Nicotine product type: cigarettes Substance use status: uncomplicated Qualified Code(s): F17.210 - Nicotine dependence, cigarettes, uncomplicated (11) Opioid dependence with withdrawal Current Visit: Yes Status: Chronic (12) Polysubstance abuse Current Visit: Yes Status: Chronic (13) Weight loss Current Visit: No Status: Acute (14) Drug-induced mood disorder Current Visit: No Status: Chronic (15) H/O herpetic bharat Current Visit: No Status: Chronic (16) Hepatitis C Current Visit: Yes Status: Chronic Qualifiers: Viral hepatitis chronicity: chronic Hepatic coma status: without hepatic coma Qualified Code(s): B18.2 - Chronic viral hepatitis C (17) History of positive PPD Current Visit: No Status: Chronic (18) Substance-induced sleep disorder Current Visit: No Status: Chronic (19) Substance induced mood disorder Current Visit: No Status: Suspected (20) PPD positive, treated Current Visit: No Status: Resolved - AMA Did Patient Leave Against Medical Advice: No [facility]
[2019-03-27 10:02] VITALS: BP 151/90; PULSE 73; TEMP 96.1
[2019-03-28] MEDS ORDERED: METHADONE HCL 5 MG TABLET (FOR DETOX USE ONLY) PO ONE (06:00)
== END 2019-03-27 10:54 | disposition home or self-care (01) | DRG 773 ==
LOC: YASAS 08:47 → Y6N 12:37
PROVIDERS: ADMIT Surgery; ATTEND Surgery
PROC: HZ2ZZZZ Detoxification Services for Substance Abuse Treatment (ICD-10-PCS; principal; 2019-03-23)
DX: F11.23 Opioid dependence with withdrawal (principal); F10.230 Alcohol dependence with withdrawal, uncomplicated; F13.230 Sedative, hypnotic or anxiolytic dependence with withdrawal, uncomplicated; F12.10 Cannabis abuse, uncomplicated; F19.24 Other psychoactive substance dependence with psychoactive substance-induced mood disorder; F19.282 Other psychoactive substance dependence with psychoactive substance-induced sleep disorder; L03.113 Cellulitis of right upper limb; G47.00 Insomnia, unspecified; B18.2 Chronic viral hepatitis C; M54.5 Low back pain; R63.4 Abnormal weight loss; Z68.27 Body mass index [BMI] 27.0-27.9, adult; R76.11 Nonspecific reaction to tuberculin skin test without active tuberculosis; R94.5 Abnormal results of liver function studies; Z91.89 Other specified personal risk factors, not elsewhere classified; B00.89 Other herpesviral infection; Z86.19 Personal history of other infectious and parasitic diseases
CPT/HCPCS: 73630-TC-RT-FY; 81003; J0735

== ENCOUNTER 2019-04-06 08:54 | Inpatient (IN) | payer OTHER ==
--- NOTE | 2019-04-06 09:42 | PDOC ---
History of Present Illness - General Chief Complaint: Wound Stated Complaint: RT HAND PAIN/SWOLLEN Time Seen by Provider: 04/06/19 09:41 - History of Present Illness Initial Comments: 04/06/19 09:41 Mr. Anguiano is a 43 yo male w/ pmh of cellulitis, IVDA (last used heroin 7am this morning), prior cocaine/ETOH/opiate abuse, HCV who presents for evaluation of R hand swelling and pain. He reports this has been an intermittent process "for months." Patient endorses being evaluated in the past however has left AMA twice for this same problem. Chart review yields presentations 02/25-02/26 and 03/14- 03/15 (w/ R foot involvement at that time) for same problem and left AMA each time after admission for IV antibiotics. Patient denies any other associated constitutional symptoms saying he "doesn't pay attention to that." The patient denies chest pain, shortness of breath, headache and dizziness. Denies fever, chills, nausea, vomit, diarrhea and constipation. Denies dysuria, frequency, urgency and hematuria. Past History - Past Medical History Allergies/Adverse Reactions: Allergies Allergy/AdvReac Type Severity Reaction Status Date / Time fish derived Allergy Severe Hives Verified 04/06/19 09:04 tramadol Allergy Hives Verified 04/06/19 09:04 Fish Allergy Severe Hives Uncoded 04/06/19 09:04 Home Medications: Ambulatory Orders NK [No Known Home Medication] 04/06/19 Anemia: No Asthma: No Cancer: No Cardiac Disorders: No CVA: No COPD: No CHF: No DVT: No Diabetes: No GI Disorders: No Disorders: No HTN: No Hypercholesterolemia: No Kidney Stones: No Liver Disease: Yes (Hep C - [place]'ED) Seizures: No Thyroid Disease: No - Surgical History Abdominal Surgery: Yes (LT INGUINAL HERNIA) Appendectomy: No Cardiac Surgery: No Cholecystectomy: No Lung Surgery: No Neurologic Surgery: No Orthopedic Surgery: Yes (R CALCANUEUS surgery 10/06/18 at [facility]) - Reproductive History Testicular Surgery: No - Suicide/Smoking/Psychosocial Hx Smoking Status: Yes Smoking History: Current every day smoker Have you smoked in the past 12 months: Yes Number of Cigarettes Smoked Daily: 10 If you are a former smoker, when did you quit?: 2018 Cigars Per Day: 0 Information on smoking cessation initiated: No 'Breaking Loose' booklet given: 03/23/19 Hx Alcohol Use: Yes Drug/Substance Use Hx: Yes (heroin) Substance Use Type: Alcohol, Cocaine, Heroin, Marijuana, Tranquilizers Hx Substance Use Treatment: Yes Review of Systems - Review of Systems Comments:: 04/06/19 09:41 GENERAL/CONSTITUTIONAL: No fever or chills. No weakness. HEAD, EYES, EARS, NOSE AND THROAT: No change in vision. No ear pain or discharge. No sore throat. CARDIOVASCULAR: No chest pain or shortness of breath RESPIRATORY: No cough, wheezing, or hemoptysis. GASTROINTESTINAL: No nausea, vomiting, diarrhea or constipation. GENITOURINARY: No dysuria, frequency, or change in urination. MUSCULOSKELETAL: +Right hand swelling and pain as described. SKIN: No rash NEUROLOGIC: No headache, vertigo, loss of consciousness, or change in strength/ sensation. ENDOCRINE: No increased thirst. No abnormal weight change HEMATOLOGIC/LYMPHATIC: No anemia, easy bleeding, or history of blood clots. ALLERGIC/IMMUNOLOGIC: No hives or skin allergy. *Physical Exam - Vital Signs Last Vital Signs Temp Pulse Resp BP Pulse Ox 97.7 F 90 22 H 139/102 H 99 04/06/19 09:05 04/06/19 09:05 04/06/19 09:05 04/06/19 09:05 04/06/19 09:05 - Physical Exam Comments: 04/06/19 09:42 GENERAL: +Patient visibly agitated and restless. Awake, alert, and fully oriented, in no acute distress HEAD: No signs of trauma, normocephalic, atraumatic EYES: PERRLA, EOMI, sclera anicteric, conjunctiva clear ENT: Auricles normal inspection, hearing grossly normal, nares patent, oropharynx clear without exudates. Moist mucosa NECK: Normal ROM, supple, no lymphadenopathy, JVD, or masses LUNGS: No distress, speaks full sentences, clear to auscultation bilaterally HEART: Regular rate and rhythm, normal S1 and S2, no murmurs, rubs or gallops, peripheral pulses normal and equal bilaterally. ABDOMEN: Soft, nontender, normoactive bowel sounds. No guarding, no rebound. No masses EXTREMITIES: +Cellulitis and swelling of dorsom of R hand extending proximally to R forearm. NEUROLOGICAL: Cranial nerves II through XII grossly intact. Normal speech, normal gait, no focal sensorimotor deficits SKIN: Warm, Dry, normal turgor, no rashes or lesions noted. ED Treatment Course - LABORATORY CBC & Chemistry Diagram: 04/06/19 14:21 04/06/19 11:14 Medical Decision Making - Medical Decision Making 04/06/19 15:20 Mr. Anguiano is a 43 yo male w/ pmh as described who presents for evaluation of symptoms concerning for cellulitis vs. sepsis. Patient evaluated with septic workup. Patient started on vanc/ceftriaxone per previous ID recommendations. Patient will likely be admitted for ID consult and IV ABX. 04/06/19 16:19 Patient admitted for further evaluation. Laboratory Results - last 24 hr 04/06/19 04/06/19 04/06/19 11:08 11:08 11:14 WBC Cancelled Corrected WBC (auto) Cancelled RBC Cancelled Hgb Cancelled Hct Cancelled MCV Cancelled MCH Cancelled MCHC Cancelled RDW Cancelled Plt Count Cancelled MPV Cancelled Absolute Neuts (auto) Cancelled Neutrophils % Cancelled Lymphocytes % Cancelled Monocytes % Cancelled Eosinophils % Cancelled Basophils % Cancelled Nucleated RBC % Cancelled Platelet Estimate Cancelled Platelet Comment Cancelled PT with INR Cancelled INR Cancelled PTT (Actin FS) Cancelled VBG pH 7.38 POC VBG pCO2 46.4 POC VBG pO2 69.3 H VBG HCO3 26.9 VBG O2 Sat (Du) 94.0 H VBG Base Excess 1.8 Sodium Potassium Chloride Carbon Dioxide Anion Gap BUN Creatinine Est GFR (CKD-EPI)AfAm Est GFR (CKD-EPI)NonAf Random Glucose Lactic Acid Calcium Total Bilirubin AST ALT Alkaline Phosphatase Troponin I Total Protein Albumin 04/06/19 04/06/19 04/06/19 11:14 11:14 14:21 WBC 7.1 Corrected WBC (auto) RBC 4.72 Hgb 13.6 Hct 41.5 MCV 87.9 MCH 28.9 MCHC 32.8 RDW 14.1 Plt Count 307 MPV 8.7 Absolute Neuts (auto) 3.7 Neutrophils % 53.0 D Lymphocytes % 31.0 D Monocytes % 11.2 H Eosinophils % 4.2 Basophils % 0.6 Nucleated RBC % 0 Platelet Estimate Platelet Comment PT with INR INR PTT (Actin FS) VBG pH POC VBG pCO2 POC VBG pO2 VBG HCO3 VBG O2 Sat (Du) VBG Base Excess Sodium 135 L Potassium 3.7 Chloride 97 L Carbon Dioxide 29 Anion Gap 9 BUN 11 Creatinine 0.6 Est GFR (CKD-EPI)AfAm 142.72 Est GFR (CKD-EPI)NonAf 123.14 Random Glucose 137 H Lactic Acid 1.3 Calcium 8.6 Total Bilirubin 0.9 AST 46 H ALT 48 Alkaline Phosphatase 102 Troponin I < 0.02 Total Protein 7.5 Albumin 3.9 *DC/Admit/Observation/Transfer Diagnosis at time of Disposition: Cellulitis of right hand - Discharge Dispostion Decision to Admit order: Yes - Referrals Referrals: [facility] [Primary Care Provider] - - Patient Instructions - Post Discharge Activity
[2019-04-06] MEDS ORDERED: SODIUM CHLORIDE 1,000 ML IV STA (10:08)
[2019-04-06] MEDS ORDERED: VANCOMYCIN 1 GM in D5W (PRE-DOCKED) 1,000 MG/250 ML IVPB ONE (10:10)
[2019-04-06] MEDS ORDERED: CEFTRIAXONE 1,000 MG in DEXTROSE 5%-WATER - 50 ML IVPB ONE (10:10)
[2019-04-06] MEDS ORDERED: CEFTRIAXONE 1 GM/50 ML BAG ONE (10:41)
[2019-04-06] MEDS ORDERED: VANCOMYCIN 1 GRAM (PRE-DOCKED) 1,000 MG/250 ML BAG IVPB ONE (10:41)
[2019-04-06 11:53] LABS: VENOUS PC02 46.4 mmHg (41-51); VENOUS PH 7.38 (7.31-7.41); VENOUS PO2 69.3 mmHg (30-40)
--- NOTE | 2019-04-06 12:24 | PDOC ---
Documentation entered by Luis Acuña SCRIBE, acting as scribe for Abhi Aly MD. Abhi Aly MD: This documentation has been prepared by the Domenico jacobs Daniel, SCRIBE, under my direction and personally reviewed by me in its entirety. I confirm that the documentation accurately reflects all work, treatment, procedures, and medical decision making performed by me. Attending Attestation - Resident Resident Name: Leo Brewer - ED Attending Attestation I have performed the following: I have examined & evaluated the patient, The case was reviewed & discussed with the resident, I agree w/resident's findings & plan, Exceptions are as noted - HPI HPI: 04/06/19 10:32 The patient is a 43 year old male with a past medical history of cellulitis, IVDA (last used heroin 7am this morning), prior cocaine/ETOH/opiate abuse, and HCV here today for evaluation of right hand swelling. The patient reports that he has had this problem before in the past few months and has been seen here twice before, receiving IV abx. The patient denies any other symptoms besides the right hand swelling. Patient denies headache, lightheadedness. Denies fever, chills. Denies chest pain, shortness of breath. Denies nausea, vomiting, diarrhea, abdominal pain. Allergies: fish derived, tramadol PCP: Main Hanson - Physicial Exam PE: 04/06/19 12:25 GENERAL: Awake, alert, and fully oriented, in no acute distress HEAD: No signs of trauma EYES: PERRLA, EOMI, sclera anicteric, conjunctiva clear NECK: Normal ROM, supple, no lymphadenopathy, JVD, or masses LUNGS: Breath sounds equal, clear to auscultation bilaterally. No wheezes, and no crackles HEART: Regular rate and rhythm, normal S1 and S2, no murmurs, rubs or gallops ABDOMEN: Soft, nontender, normoactive bowel sounds. No guarding, no rebound. No masses EXTREMITIES: R hand, extending to distal forearm with erythema, tenderness, warmth. Limited ROM in fingers 2/2 pain, normal sensation distally. 2+ radial pulses NEUROLOGICAL: Normal speech, cranial nerves intact, negative pronator drift, 5/ 5 strength in all 4 extremities, normal sensation to light touch in all 4 extremities, normal cerebellar exam, normal gait, normal reflexes and tone SKIN: Warm, Dry, normal turgor, no rashes or lesions noted. - Medical Decision Making 04/06/19 12:30 43yo M with frequent ED presentations for R extremity cellulitis 2/2 IVDU presents to the ED with worsening pain, erythema, tenderness consistent with cellulitis. Plan for labs, IV abx. Pt amenable to admission.
[2019-04-06 12:32] LABS: ALBUMIN 3.9 g/dl (3.4-5.0); ALK PHOS 102 U/L (45-117); ANION GAP 9 MMOL/L (8-16); BILIRUBIN,TOTAL 0.9 mg/dL (0.2-1); BLOOD UREA NITROGEN 11 mg/dL (7-18); CALCIUM 8.6 mg/dL (8.5-10.1); CHLORIDE 97 mmol/L (98-107); CO2 29 mmol/L (21-32); CREATININE 0.6 mg/dL (0.55-1.3); GLUCOSE,RANDOM 137 mg/dL (74-106); POTASSIUM 3.7 mmol/L (3.5-5.1); SGOT/AST 46 U/L (15-37); SGPT/ALT 48 U/L (13-61); SODIUM 135 mmol/L (136-145); TOT PROT 7.5 g/dl (6.4-8.2)
[2019-04-06] MEDS ORDERED: ACETAMINOPHEN 1000 MG/100 ML VIAL (NON FORMULARY) IVPB ONE (12:50)
[2019-04-06] MEDS ORDERED: ACETAMINOPHEN INJECTION 100 ML IVPB ONE (12:57)
[2019-04-06 14:45] LABS: BASO % 0.6 % (0-2.0); EOS % 4.2 % (0-4.5); HEMATOCRIT 41.5 % (35.4-49); HEMOGLOBIN 13.6 GM/dL (11.7-16.9); MCH 28.9 pg (25.7-33.7); MCHC 32.8 g/dl (32.0-35.9); MEAN CELL VOLUME 87.9 fl (80-96); MEAN PLT VOLUME 8.7 fl (7.5-11.1); MONO % 11.2 % (3.8-10.2); PLATELET COUNT 307 K/MM3 (134-434); RBC 4.72 M/mm3 (4.00-5.60); RDW 14.1 % (11.9-15.9); WHITE BLOOD COUNT 7.1 K/mm3 (4.0-10.0)
[2019-04-06 15:28] LABS: PROTHROMBIN TIME (PATIENT) 11.8 SEC (9.7-13.0)
[2019-04-06 15:30] LABS: ACTIVATED PTT 31.2 SECONDS (25.2-36.5)
[2019-04-06] MEDS ORDERED: ACETAMINOPHEN 325 MG TABLET (FP) PO PRN (17:53)
[2019-04-06] MEDS: SODIUM CHLORIDE 1,000 ML IV SCH (18:03)
[2019-04-06 19:00] VITALS: BMI 26.9
[2019-04-06] MEDS: chlordiazePOXIDE 5 MG CAPSULE PO SCH (22:03)
[2019-04-07] MEDS: chlordiazePOXIDE 5 MG CAPSULE PO SCH ×3 (05:08→16:33)
[2019-04-07] MEDS ORDERED: cloNIDine HCL 0.1 MG TABLET PO ONE (05:50)
[2019-04-07] MEDS ORDERED: ONDANSETRON *ODT* 4 MG TABLET SL ONE (05:53)
--- NOTE | 2019-04-07 09:56 | EKG ---
Test Reason : Blood Pressure : / mmHG Vent. Rate : 072 BPM Atrial Rate : 072 BPM P-R Int : 158 ms QRS Dur : 088 ms QT Int : 410 ms P-R-T Axes : 054 070 044 degrees QTc Int : 448 ms NORMAL SINUS RHYTHM NORMAL ECG WHEN COMPARED WITH ECG OF 14-MAR-2019 04:33, NO SIGNIFICANT CHANGE WAS FOUND Confirmed by ABEL NGO MD ([id number]) on 04/07/2019 9:56:09 AM Referred By: Confirmed By:ABEL NGO MD
[2019-04-07] MEDS ORDERED: ENOXAPARIN NA (PORCINE) 40 MG/0.4 ML DISP.SYRIN SQ SCH (10:00)
--- NOTE | 2019-04-07 11:33 | HP ---
Admitting History and Physical - Primary Care Physician PCP: [facility] - Admission Chief Complaint: Swelling and Pain R hand History of Present Illness: Patient is a 43 y/o male patient with past medical history of HCV, ETOH abuse, IVDU (last used heroin x 2 bags 04/06/19). Patient presented to ER with complaints of swelling in pain to R hand worsening over past 3 days. Patient was recently admitted for same chief complaint on 03/23/19 but signed out AMA. Patient states pain is sharp and painful ROM of hand. Denies chest pain, SOB, abdominal pain, nausea or vomiting. History Source: Patient Limitations to Obtaining History: No Limitations - Past Medical History Hepatobiliary: Yes: Hepatitis C Psych: Yes: Addictions - Smoking History Smoking history: Current every day smoker Have you smoked in the past 12 months: Yes Aproximately how many cigarettes per day: 10 If you are a former smoker, when did you quit?: 2018 - Alcohol/Substance Use Hx Alcohol Use: Yes History of Substance Use: reports: Cocaine, Heroin, Marijuana, Prescription ( Xanax) - Social History Usual Living Arrangement: Yes: Alone ADL: Independent History of Recent Travel: No Home Medications - Allergies Allergies/Adverse Reactions: Allergies Allergy/AdvReac Type Severity Reaction Status Date / Time fish derived Allergy Severe Hives Verified 04/06/19 09:04 tramadol Allergy Hives Verified 04/06/19 09:04 Fish Allergy Severe Hives Uncoded 04/06/19 09:04 - Home Medications Home Medications: Ambulatory Orders NK [No Known Home Medication] 04/06/19 Family Disease History - Family Disease History Family Disease History: Diabetes: Grandparent (dec), Father (,dsa), Other: Mother (alive and well) Review of Systems - Review of Systems Constitutional: reports: No Symptoms Eyes: reports: No Symptoms HENT: reports: No Symptoms Neck: reports: No Symptoms Cardiovascular: reports: No Symptoms Respiratory: reports: No Symptoms Gastrointestinal: reports: No Symptoms Genitourinary: reports: No Symptoms Breasts: reports: No Symptoms Reported Musculoskeletal: reports: Other (swelling and pain R hand) Integumentary: reports: Erythema (R hand) Neurological: reports: No Symptoms Endocrine: reports: No Symptoms Hematology/Lymphatic: reports: No Symptoms Psychiatric: reports: No Symptoms Physical Examination Vital Signs: Vital Signs Temperature 98.0 F 04/07/19 09:46 Pulse Rate 77 04/07/19 09:46 Respiratory Rate 18 04/07/19 09:46 Blood Pressure 138/80 04/07/19 09:46 O2 Sat by Pulse Oximetry (%) 98 04/06/19 17:51 Constitutional: Yes: No Distress, Calm Eyes: Yes: Conjunctiva Clear HENT: Yes: Atraumatic Cardiovascular: Yes: Regular Rate and Rhythm Respiratory: Yes: Regular, CTA Bilaterally Gastrointestinal: Yes: Normal Bowel Sounds, Soft Musculoskeletal: Yes: WNL Extremities: Yes: Erythema (R hand) Edema: Yes (RUE) Integumentary: Yes: Erythema (R hand) Neurological: Yes: Alert, Oriented Psychiatric: Yes: Alert, Oriented Labs: CBC, BMP 04/06/19 14:21 04/06/19 11:14 Imaging - Results Chest X-ray: Report Reviewed Problem List - Problems (1) Cellulitis of right hand Assessment/Plan: -ID on board -no leukocytosis -afebrile -R hand/wrist xray -Toradol IM -pain management -BC ordered Code(s): L03.113 - CELLULITIS OF RIGHT UPPER LIMB (2) Alcohol dependence with uncomplicated withdrawal Assessment/Plan: -continue Librium Code(s): F10.230 - ALCOHOL DEPENDENCE WITH WITHDRAWAL, UNCOMPLICATED (3) IVDU (intravenous drug user) Assessment/Plan: -Consult ordered for Dr. Bryson Code(s): F19.90 - OTHER PSYCHOACTIVE SUBSTANCE USE, UNSPECIFIED, UNCOMPLICATED Assessment/Plan see problem list dvt ppx
[2019-04-07] MEDS ORDERED: KETOROLAC TROMETHAMINE 30 MG/1 ML VIAL IM PRN (11:37)
--- NOTE | 2019-04-07 12:14 | PN ---
Progress Note (short form) - Note Progress Note: ID consult dictated imp/reccd 43 yo man active IVDA admitted with recurrent swelling right hand He has had 2 prior admissions for this in February 2019 Both times he left AMA he denies injection in the hand no fevers last heroin use 3 days ago smokes 1/2 PPD received vancomycin and ceftriaxone in the ED pulled out iv on arrival to the floor, pulled out restart as well blood cultures negative after 24 hours recurrent cellulitis of the hand? xray hand consider rheum eval esr/crp history of hep c- check cryoglobulins po clindamycin for now ivdu- detox consult unfortunately very limited physical and history due to patient's lack of cooperation d/w hospitalist Problem List - Problems (1) Cellulitis of right hand Code(s): L03.113 - CELLULITIS OF RIGHT UPPER LIMB (2) IVDU (intravenous drug user) Code(s): F19.90 - OTHER PSYCHOACTIVE SUBSTANCE USE, UNSPECIFIED, UNCOMPLICATED
[2019-04-07] MEDS ORDERED: PT OWN MED DRAWER 7, Y5N ONE ×2 (13:33→15:26)
[2019-04-07 15:20] LABS: METHADONE, UR NEGATIVE ng/ml (CUTOFF=300); PHENCYCLIDINE,URINE NEGATIVE ng/ml (CUTOFF=25); URINE AMPHETAMINES NEGATIVE ng/ml (CUTOFF=500); URINE BARBITURATES NEGATIVE ng/ml (CUTOFF=200)
[2019-04-07] MEDS: CLINDAMYCIN HCL 300 MG CAPSULE PO SCH ×2 (15:23→21:12)
[2019-04-07 15:27] LABS: COCAINE, UR POSITIVE ng/ml (CUTOFF=300); URINE BENZODIAZEPINES POSITIVE ng/ml (CUTOFF=200)
[2019-04-07 15:28] LABS: OPIATES, URI POSITIVE ng/ml (CUTOFF=300)
--- NOTE | 2019-04-07 18:56 | CONS ---
DATE OF CONSULTATION: DATE OF DICTATION: 04/07/2019 INFECTIOUS DISEASE CONSULTATION REQUESTING PHYSICIAN: Elías Morrow M.D. CONSULTING PHYSICIAN: Sandra Dumont M.D. HISTORY OF PRESENT ILLNESS: This is a 43-year-old man with multiple recent admissions twice in February with swelling of his right hand. Both times he unfortunately left AMA. All recent cultures have been unremarkable. He returns again with swelling of his right hand. He is a heroin user, which he says he uses for pain, he injected as recently as 3 days ago. He denies any injections to the arm. He is unfortunately a very poor historian and does not wish to enter into any details. He states he denies any fevers at home. He last used heroin 3 days ago, and he smokes a half pack per day. He states he is HIV negative, uses clean needles, and is hepatitis C positive. PAST MEDICAL HISTORY: Notable for hepatitis C as well as he has had 2 hernia repairs in the past, and he has had surgery to his right leg at [facility] in September of 2018, and reports he has 10 pins and 2 plates. SOCIAL HISTORY: He is currently living with his daughter, though he recently had a fight with her and is not sure he can stay there, and he smokes a half pack per day. He last used heroin 3 days ago, has a prior polysubstance use of cocaine, marijuana, tranquilizers, and alcohol. REVIEW OF SYSTEMS: He reports pain all over, and he really did not want to talk to me. PHYSICAL EXAMINATION: GENERAL: The exam is very limited, as he kept pulling up the covers and wanting to go back to sleep and not talk to me. VITAL SIGNS: He has been afebrile since admission, current temperature is 98, pulse is 77, blood pressure 138/80, respiratory rate 18. HEENT: Normocephalic. Eyes are anicteric. He has no conjunctival hemorrhages, he has no thrush or pharyngitis. NECK: Supple. LUNGS: Clear to auscultation. HEART: Regular rate and rhythm. ABDOMEN: I could not do an abdominal exam with the way he was laying in bed. EXTREMITIES: His arms, he has no lymphangitis, he has no axillary adenopathy. Has diffuse swelling of the right hand. There are no lesions on his fingers. He has a very, very small lesion on his palm. The entire hand is tender, he has very good pulses, and he is able to move all his fingers, though he cannot clench and make a fist. His extremities are without edema, and he has no swelling of his feet LABORATORY: White count is 7.1, hemoglobin 13.6, platelets are 307. His BUN and creatinine are 11 and 0.6. His last urine toxicology from February was positive for opiates, methadone, benzodiazepines, cocaine, and marijuana. Blood cultures are negative at 24 hours. IMPRESSION: 1. This is a 43-year-old man with recurrent cellulitis of the hand versus perhaps a noninfectious diagnosis such as reflex sympathetic dystrophy or perhaps cryoglobulins from his hepatitis C. I would x-ray his hand, consider rheumatology evaluation, check a sedimentation rate and C-reactive protein. He pulled out his intravenous from the emergency room on arrival to the floor. In the emergency room he received vancomycin and ceftriaxone, and apparently he pulled out the restart intravenous as well. Would switch him to oral clindamycin for now. 2. Intravenous drug use. Would obtain a detox consultation. Unfortunately, this was a very limited history and physical due to the patient's lack of cooperation. Case was discussed with the hospitalist. SANDRA DUMONT M.D. [id number]
--- NOTE | 2019-04-07 19:24 | PN ---
[facility] CIWA - CIWA Score Nausea/Vomitin-Int. Nausea w/Dry Heave Muscle Tremors: 3 Anxiety: 4-Mod. Anxious/Guarded Agitation: 4-Moderately Restless Paroxysmal Sweats: No Perspiration Orientation: 0-Oriented Tacttile Disturbances: 0-None Auditory Disturbances: 0-None Visual Disturbances: 0-None Headache: 0-None Present CIWA-Ar Total Score: 15 S COWS - Scale Resting Pulse: 1= NM 81-100 Sweatin= Chills/Flushing Restless Observation: 3= Extraneous Movement Pupil Size: 1= Pupils >than Normal Bone or Joint Aches: 2= Severe Diffuse Aches Runny Nose/ Eye Tearin= Nasal Congestion GI Upset > 30mins: 3= Vomiting/Diarrhea Tremor Observation of Outstretched Hands: 2= Slight Tremor Visible Yawning Observation: 2= >3x During Session Anxiety or Irritability: 2=Irritable/Anxious Goose Flesh Skin: 0=Smooth Skin COWS Score: 18 S Progress Note (SOAP) Subjective: 43 year old male with heroin,alcohol,cocaine,xanax,marijuana dependence,reports latest use yesterday morning , average daily use 1 bundle and more IVDU , needles from exchange, denies sharing, + re-using, + abscess in the past , presented to hospital w/ r hand celluliitis , seen by ID , meds as below. last 2 detox 03/06/19 to 03/10/19 , 03/23/19 - 03/27/19 @ [facility] , states went to [facility] for rehab , left after 2 days AMA hepatitis c treated nicotine dependence 1/2 pack longest period of sobriety 10 months w/ meetings cocaine : 40 $ / day Xanax 2 mg every other day alcohol - reports past abuse , not since most recent detox , denies seizures Active Medications Acetaminophen (Tylenol -) 650 mg PO Q4H PRN PRN Reason: PAIN LEVEL 1 - 5 OR FEVER Chlordiazepoxide HCl (Librium -) 5 mg PO [id number] [facility] Last Admin: 04/07/19 16:33 Dose: 5 mg Clindamycin HCl (Cleocin -) 300 mg PO TID [facility] Last Admin: 04/07/19 15:23 Dose: 300 mg Enoxaparin Sodium (Lovenox -) 40 mg SQ DAILY [facility] Last Admin: 04/07/19 09:42 Dose: Not Given Sodium Chloride (Normal Saline -) 1,000 mls @ 75 mls/hr IV ASDIR [facility] Last Admin: 04/06/19 18:03 Dose: 75 mls/hr Ketorolac Tromethamine (Toradol Injection -) 30 mg IM Q6H PRN PRN Reason: PAIN LEVEL 1-5 Stop: 04/12/19 11:36 Last Admin: 04/07/19 15:32 Dose: 30 mg Objective: wnwd heent : ncat resp : no distress noted neuro : aao x 3 restless in bed , extraneous leg movements CBC, BMP 04/06/19 14:21 04/06/19 11:14 Abnormal Lab Results 04/07/19 13:30 Opiates Screen Positive A* Benzodiazepines Screen Positive A* Cocaine Screen Positive A* U Marijuana (THC) Screen Positive A* Vital Signs - 24 hr 04/07/19 04/07/19 02:00 09:46 Temperature 98.4 F 98.0 F Pulse Rate 88 77 Respiratory 20 18 Rate Blood Pressure 175/103 H 138/80 Assessment: opiate dependence w/ withdrawal sedative dependence cocaine dependence alcohol dependence cannabis dependence nicotine dependence Plan: Methadone taper Valium taper pt to consider rehab after detox.
[2019-04-07] MEDS ORDERED: cloNIDine HCL 0.1 MG TABLET PO PRN (19:25)
[2019-04-07] MEDS ORDERED: diazePAM 5 MG TABLET PO PRN (19:25)
[2019-04-07] MEDS ORDERED: METHADONE HCL 10 MG TABLET (FOR DETOX USE ONLY) PO ONE (19:26)
[2019-04-07] MEDS ORDERED: METHADONE 20 MG, METHADONE 5 MG PO ONE (19:45)
[2019-04-07] MEDS ORDERED: METHADONE HCL 5 MG TABLET ONE (19:48)
[2019-04-07] MEDS ORDERED: METHADONE HCL 10 MG TABLET ONE (19:48)
[2019-04-07] MEDS: diazePAM 5 MG TABLET PO SCH (21:11)
[2019-04-07] MEDS: SODIUM CHLORIDE 1,000 ML IV SCH (21:13)
[2019-04-08] MEDS: diazePAM 5 MG TABLET PO SCH ×2 (05:51→13:45)
[2019-04-08] MEDS: CLINDAMYCIN HCL 150 MG CAPSULE (FP) PO SCH ×2 (05:51→13:45)
[2019-04-08 07:43] LABS: HEMATOCRIT 44.9 % (35.4-49); HEMOGLOBIN 15.2 GM/dL (11.7-16.9); MCH 29.4 pg (25.7-33.7); MCHC 33.8 g/dl (32.0-35.9); MEAN PLT VOLUME 8.5 fl (7.5-11.1); PLATELET COUNT 403 K/MM3 (134-434); RBC 5.17 M/mm3 (4.00-5.60); RDW 14.5 % (11.9-15.9); WHITE BLOOD COUNT 6.3 K/mm3 (4.0-10.0)
[2019-04-08 08:18] LABS: ALBUMIN 3.5 g/dl (3.4-5.0); ALK PHOS 82 U/L (45-117); ANION GAP 8 MMOL/L (8-16); BILIRUBIN,TOTAL 0.7 mg/dL (0.2-1); BLOOD UREA NITROGEN 9 mg/dL (7-18); CALCIUM 8.9 mg/dL (8.5-10.1); CHLORIDE 106 mmol/L (98-107); CO2 27 mmol/L (21-32); CREATININE 0.7 mg/dL (0.55-1.3); GLUCOSE,RANDOM 109 mg/dL (74-106); POTASSIUM 3.7 mmol/L (3.5-5.1); SGOT/AST 28 U/L (15-37); SGPT/ALT 38 U/L (13-61); SODIUM 141 mmol/L (136-145); TOT PROT 6.7 g/dl (6.4-8.2)
[2019-04-08] MEDS ORDERED: METHADONE HCL 10 MG TABLET PO ONE (10:00)
--- NOTE | 2019-04-08 11:32 | PN ---
Progress Note, Physician Chief Complaint: Right hand Cellulitis IVDA Anxiety+ depression History of Present Illness: NAD asking for pain medication refuses tylenol Started on tapering dose methadone - Current Medication List Current Medications: Active Medications Acetaminophen (Tylenol -) 650 mg PO Q4H PRN PRN Reason: PAIN LEVEL 1 - 5 OR FEVER Clindamycin HCl (Cleocin -) 300 mg PO TID [facility] Last Admin: 04/08/19 05:51 Dose: 300 mg Clonidine (Catapres -) 0.1 mg PO Q6H PRN PRN Reason: Withdrawal Symptoms Stop: 04/09/19 23:55 Diazepam (Valium -) 5 mg PO TID [facility] Stop: 04/08/19 22:01 Last Admin: 04/08/19 05:51 Dose: 5 mg Diazepam (Valium -) 5 mg PO BID [facility] Stop: 04/09/19 22:01 Diazepam (Valium -) 5 mg PO DAILY [facility] Stop: 04/10/19 06:01 Diazepam (Valium -) 10 mg PO Q4H PRN PRN Reason: WITHDRAWAL(CONT SUBST) Stop: 04/10/19 19:24 Enoxaparin Sodium (Lovenox -) 40 mg SQ DAILY [facility] Last Admin: 04/07/19 09:42 Dose: Not Given Sodium Chloride (Normal Saline -) 1,000 mls @ 75 mls/hr IV ASDIR [facility] Last Admin: 04/07/19 21:13 Dose: Not Given Ketorolac Tromethamine (Toradol Injection -) 30 mg IM Q6H PRN PRN Reason: PAIN LEVEL 1-5 Stop: 04/12/19 11:36 Last Admin: 04/07/19 15:32 Dose: 30 mg Methadone HCl (Dolophine -) 5 mg PO ONCE@0600 ONE Stop: 04/11/19 06:01 Methadone HCl (Dolophine -) 10 mg PO ONCE ONE Stop: 04/10/19 10:01 Methadone HCl (Dolophine -) 15 mg PO ONCE ONE Stop: 04/09/19 10:01 - Objective Vital Signs: Vital Signs Temperature 98.6 F 04/08/19 05:52 Pulse Rate 68 04/08/19 05:52 Respiratory Rate 20 04/08/19 05:52 Blood Pressure 145/89 04/08/19 05:52 O2 Sat by Pulse Oximetry (%) 98 04/06/19 17:51 Constitutional: Yes: Well Nourished, No Distress, Anxious Cardiovascular: Yes: Regular Rate and Rhythm Respiratory: Yes: Regular Gastrointestinal: Yes: Normal Bowel Sounds, Soft Genitourinary: Yes: WNL Musculoskeletal: Yes: Other (right hand pain) Edema: Yes (right hand non pitting ed) Peripheral Pulses WNL: Yes Neurological: Yes: Alert, Oriented Psychiatric: Yes: Alert, Oriented Labs: CBC, BMP 04/08/19 07:00 04/08/19 07:00 INR, PTT INR 1.00 (0.83-1.09) 04/06/19 14:21 Problem List - Problems (1) Cellulitis of right hand Assessment/Plan: -PO cleocin 300 mg TID x another 7 days -Seen by ID Code(s): L03.113 - CELLULITIS OF RIGHT UPPER LIMB (2) IVDU (intravenous drug user) Assessment/Plan: -Seen by Detox -Methadone taper -Valium taper -pt to consider rehab after detox. Last was [facility], signed out AMA after 2 days Code(s): F19.90 - OTHER PSYCHOACTIVE SUBSTANCE USE, UNSPECIFIED, UNCOMPLICATED (3) Polysubstance abuse Code(s): F19.10 - OTHER PSYCHOACTIVE SUBSTANCE ABUSE, UNCOMPLICATED Assessment/Plan See problem list
--- NOTE | 2019-04-08 12:13 | DS ---
Physical Examination Vital Signs: Vital Signs Temperature 98.6 F 04/08/19 05:52 Pulse Rate 68 04/08/19 05:52 Respiratory Rate 20 04/08/19 05:52 Blood Pressure 145/89 04/08/19 05:52 O2 Sat by Pulse Oximetry (%) 98 04/06/19 17:51 Findings/Remarks: Patient is a 43 y/o male patient with past medical history of HCV, ETOH abuse, IVDU (last used heroin x 2 bags 04/06/19). Patient presented to ER with complaints of swelling in pain to R hand worsening over past 3 days. Patient was recently admitted for same chief complaint on 03/23/19 but signed out AMA. Patient states pain is sharp and painful ROM of hand. Denies chest pain, SOB, abdominal pain, nausea or vomiting. Constitutional: Yes: Well Nourished, No Distress, Calm Cardiovascular: Yes: Regular Rate and Rhythm Respiratory: Yes: Regular Gastrointestinal: Yes: Normal Bowel Sounds, Soft Musculoskeletal: Yes: WNL Extremities: Yes: WNL Edema: Yes (right hand) Peripheral Pulses WNL: Yes Neurological: Yes: Alert, Oriented Psychiatric: Yes: Alert, Oriented Labs: CBC, BMP 04/08/19 07:00 04/08/19 07:00 Discharge Summary Reason For Visit: CELLULITIS ON RIGHT HAND Current Active Problems Cellulitis of right hand (Acute) Hospital Course: Laboratory Last Values WBC 6.3 K/mm3 (4.0-10.0) 04/08/19 07:00 Corrected WBC (auto) Cancelled 04/06/19 11:08 RBC 5.17 M/mm3 (4.00-5.60) 04/08/19 07:00 Hgb 15.2 GM/dL (11.7-16.9) 04/08/19 07:00 Hct 44.9 % (35.4-49) 04/08/19 07:00 MCV 87.0 fl (80-96) 04/08/19 07:00 MCH 29.4 pg (25.7-33.7) 04/08/19 07:00 MCHC 33.8 g/dl (32.0-35.9) 04/08/19 07:00 RDW 14.5 % (11.9-15.9) 04/08/19 07:00 Plt Count 403 K/MM3 (134-434) D 04/08/19 07:00 MPV 8.5 fl (7.5-11.1) 04/08/19 07:00 Absolute Neuts (auto) 3.7 K/mm3 (1.5-8.0) 04/06/19 14:21 Neutrophils % 53.0 % (42.8-82.8) D 04/06/19 14:21 Lymphocytes % 31.0 % (8-40) D 04/06/19 14:21 Monocytes % 11.2 % (3.8-10.2) H 04/06/19 14:21 Eosinophils % 4.2 % (0-4.5) 04/06/19 14: Basophils % 0.6 % (0-2.0) 04/06/19 14: Nucleated RBC % 0 % (0-0) 04/06/19 14:21 Platelet Estimate Cancelled 04/06/19 11:08 Platelet Comment Cancelled 04/06/19 11:08 ESR 4 mm/hr (0-10) 04/08/19 07:00 PT with INR 11.80 SEC (9.7-13.0) 04/06/19 14:21 INR 1.00 (0.83-1.09) 04/06/19 14:21 PTT (Actin FS) 31.2 SECONDS (25.2-36.5) 04/06/19 14:21 VBG pH 7.38 (7.31-7.41) 04/06/19 11:14 POC VBG pCO2 46.4 mmHg (41-51) 04/06/19 11:14 POC VBG pO2 69.3 mmHg (30-40) H 04/06/19 11:14 VBG HCO3 26.9 mmol/L (23-29) 04/06/19 11:14 VBG O2 Sat (Du) 94.0 % (70-80) H 04/06/19 11:14 VBG Base Excess 1.8 meq/l (-2-2) 04/06/19 11:14 Sodium 141 mmol/L (136-145) 04/08/19 07:00 Potassium 3.7 mmol/L (3.5-5.1) 04/08/19 07:00 Chloride 106 mmol/L (98-107) 04/08/19 07:00 Carbon Dioxide 27 mmol/L (21-32) 04/08/19 07:00 Anion Gap 8 MMOL/L (8-16) 04/08/19 07:00 BUN 9 mg/dL (7-18) 04/08/19 07:00 Creatinine 0.7 mg/dL (0.55-1.3) 04/08/19 07:00 Est GFR (CKD-EPI)AfAm 133.96 04/08/19 07:00 Est GFR (CKD-EPI)NonAf 115.58 04/08/19 07:00 Random Glucose 109 mg/dL (74-106) H 04/08/19 07:00 Lactic Acid 1.3 mmol/L (0.4-2.0) 04/06/19 11:14 Calcium 8.9 mg/dL (8.5-10.1) 04/08/19 07:00 Total Bilirubin 0.7 mg/dL (0.2-1) 04/08/19 07:00 AST 28 U/L (15-37) 04/08/19 07:00 ALT 38 U/L (13-61) 04/08/19 07:00 Alkaline Phosphatase 82 U/L (45-117) 04/08/19 07:00 Troponin I < 0.02 ng/ml (0.00-0.05) 04/06/19 11:14 C-Reactive Protein < 0.3 MG/DL (0.00-0.3) 04/08/19 07:00 Total Protein 6.7 g/dl (6.4-8.2) 04/08/19 07:00 Albumin 3.5 g/dl (3.4-5.0) 04/08/19 07:00 Opiates Screen Positive ng/ml (YTUTNR=411) A* 04/07/19 13:30 Methadone Screen Negative ng/ml (RVCSXD=455) 04/07/19 13:30 Barbiturate Screen Negative ng/ml (RLVSKS=415) 04/07/19 13:30 Phencyclidine Screen Negative ng/ml (CUTOFF=25) 04/07/19 13:30 Ur Amphetamines Screen Negative ng/ml (RQSSLB=707) 04/07/19 13:30 MDMA (Ecstasy) Screen Negative ng/ml (NBAQOX=886) 04/07/19 13:30 Benzodiazepines Screen Positive ng/ml (THYNHL=609) A* 04/07/19 13:30 Cocaine Screen Positive ng/ml (EALQJW=101) A* 04/07/19 13:30 U Marijuana (THC) Screen Positive ng/ml (CUTOFF=50) A* 04/07/19 13:30 Vital Signs Temp 98.6 F 04/08/19 05:52 Pulse 68 04/08/19 05:52 Resp 20 04/08/19 05:52 BP 145/89 04/08/19 05:52 Pulse Ox 98 04/06/19 17:51 Intake & Output 04/07/19 04/08/19 04/08/19 23:59 11:59 23:59 Intake Total 500 240 Output Total 500 Balance 0 240 Intake: Oral 500 240 Output: Urine 500 Void 500 Other: Voiding Method Toilet # Unmeasured Voids Void 600 Bowel Movement No No # Bowel Movements 0 Microbiology 04/06/19 10:25 Blood - Peripheral Venous Blood Culture - Preliminary NO GROWTH OBTAINED AFTER 48 HOURS, INCUBATION TO CONTINUE FOR 3 DAYS. 04/06/19 10:30 Blood - Peripheral Venous Blood Culture - Preliminary NO GROWTH OBTAINED AFTER 48 HOURS, INCUBATION TO CONTINUE FOR 3 DAYS. Condition: Fair - Instructions Disposition: TRANSFER ACUTE CARE/OTHER HOSP - Home Medications Comprehensive Discharge Medication List: Ambulatory Orders NK [No Known Home Medication] 04/06/19 Methadone (Detox) [Dolophine -] 5 mg PO Q8H #21 tablet MDD asdir 04/08/19
[2019-04-08 13:55] VITALS: BP 148/92; PULSE 78; TEMP 98.2
[2019-04-09] MEDS ORDERED: diazePAM 5 MG TABLET PO SCH (10:00)
[2019-04-09] MEDS ORDERED: METHADONE HCL 5 MG TABLET PO ONE (10:00)
[2019-04-10] MEDS ORDERED: diazePAM 5 MG TABLET PO SCH (06:00)
[2019-04-10] MEDS ORDERED: METHADONE HCL 10 MG TABLET PO ONE (10:00)
[2019-04-11] MEDS ORDERED: METHADONE HCL 5 MG TABLET PO ONE (06:00)
== END 2019-04-08 16:20 | disposition short-term general hospital (02) | DRG 383 ==
LOC: JER 08:54 → JERBED 18:21 → J6S 18:33 → OBSVTOIN 04-07 15:12
PROVIDERS: ADMIT Family Medicine; ATTEND Family Medicine
DX: L03.113 Cellulitis of right upper limb (principal); F10.230 Alcohol dependence with withdrawal, uncomplicated; F11.23 Opioid dependence with withdrawal; F19.10 Other psychoactive substance abuse, uncomplicated; F41.8 Other specified anxiety disorders; F12.20 Cannabis dependence, uncomplicated; F17.210 Nicotine dependence, cigarettes, uncomplicated; B19.20 Unspecified viral hepatitis C without hepatic coma; F14.20 Cocaine dependence, uncomplicated
CPT/HCPCS: 36415; 71046-TC-FY; 73110-TC-RT-FY; 73130-TC-RT-FY; 80053; 80307; 82595; 82803; 83605; 84484; 85025; 85027; 85610; 85651; 85730; 86140; 87040; 93005; 93010; 99284-25; G0378; J0131; J0735; J7030; Q0162

== ENCOUNTER 2019-04-15 08:30 | Inpatient (IN) | payer OTHER | END 2019-04-20 14:28 | disposition home or self-care (01) | LOC: YASAS 08:30 → Y3N 10:04 ==

== ENCOUNTER 2019-05-26 16:31 | Inpatient (IN) | payer OTHER ==
[2019-05-26 19:07] VITALS: BMI 28.1
--- NOTE | 2019-05-26 20:33 | HP ---
COWS - Scale Resting Pulse: 2= [place] 101-120 Sweatin=Flushed/Facial Moisture Restless Observation: 3= Extraneous Movement Pupil Size: 1= Pupils >than Normal (Pupils = 3 mm) Bone or Joint Aches: 1= Mild Discomfort Runny Nose/ Eye Tearin= Nasal Congestion GI Upset > 30mins: 3= Vomiting/Diarrhea Tremor Observation: 4= Gross Tremor/Twitching Yawning Observation: 1= 1-2x During Session Anxiety or Irritability: 1=Feels Anxious/Irritable Goose Flesh Skin: 0=Smooth Skin COWS Score: 19 CIWA Score Nausea/Vomitin-Int. Nausea w/Dry Heave (Vomiting) Muscle Tremors: 4-Moderate,w/Arms Extend Anxiety: 3 Agitation: 4-Moderately Restless Paroxysmal Sweats: 3 (Increased facial moisture) Orientation: 0-Oriented Tacttile Disturbances: 0-None Auditory Disturbances: 0-None Visual Disturbances: 0-None Headache: 0-None Present CIWA-Ar Total Score: 18 - Admission Criteria OAS Guidelines: Admission for Medically Managed Detox: Requires at least one of the followin. CIWA greater than 12 2. Seizures within the past 24 hours 3. Delirium tremens within the past 24 hours 4. Hallucinations within the past 24 hours 5. Acute intervention needed for co occurring medical disorder 6. Acute intervention needed for co occurring psychiatric disorder 7. Severe withdrawal that cannot be handled at a lower level of care (continued vomiting, continued diarrhea, abnormal vital signs) requiring intravenous medication and/or fluids 8. Patient presents the following: CIWA greater than 12 Admission Criteria Met: Admission criteria met Admission ROS [facility] Chief Complaint: Having alcohol and heroin withdrawal. Allergies/Adverse Reactions: Allergies Allergy/AdvReac Type Severity Reaction Status Date / Time tramadol Allergy Hives Verified 05/26/19 18:49 tuna fish Allergy Swelling Uncoded 05/26/19 18:49 History of Present Illness: 43 yo presents w/ alcohol and heroin withdrawal and seeking detox. Heroin use since age 27. Current use about 2 bundles/day. Denies sharing needles or works. Alcohol use since age 16. Current use 2 pints vodka x 10-12 months. Xanax use since age 41. Cocaine use since age 25. Nicotine use since age 14. Denies seizures, blackouts, overdoses. PMHx: Calcaneous fx w/ ORIF 2018; PPD+ CXR: 04/06/19 w/o evidence of active disease EK07/26/18 = Sinus Bradycardia MHHx: Insomnia - takes Seroquel 25 mg PO HS. Does not see a MH Provider. Exam Limitations: No Limitations - Ebola screening Have you traveled outside of the country in the last 21 days: No Have you had contact with anyone from an Ebola affected area: No Have you been sick,other than usual withdrawal symptoms: No (Denies recent exposure to measles) Do you have a fever: No - Review of Systems Constitutional: Chills, Diaphoresis, Changes in sleep (Difficulty falling asleep - Takes Seroquel) EENT: reports: Nose Congestion Respiratory: reports: No Symptoms reported Cardiac: reports: No Symptoms Reported GI: reports: Nausea, Vomiting (Yellowish bile x 3), Indigestion (heart burn - no recent exacerbation - Past use prevacid) : reports: No Symptoms Reported Musculoskeletal: reports: Back Pain (r/t withdrawal), Joint Pain ((R) ankle. Hc calcaneous fx. Has ORIF in ) Integumentary: reports: No Symptoms Reported Neuro: reports: No Symptoms reported Endocrine: reports: Excessive Sweating (r/t withdrawal), Increased Thirst Hematology: reports: No Symptoms Reported Psychiatric: reports: Judgement Intact, Orientated x3, Agitated, Anxious Patient History - Patient Medical History Hx Anemia: No Hx Asthma: No Hx Chronic Obstructive Pulmonary Disease (COPD): No Hx Cancer: No Hx Cardiac Disorders: No Hx Congestive Heart Failure: No Hx Hypertension: No Hx Hypercholesterolemia: No Hx Pacemaker: No HX Cerebrovascular Accident: No Hx Seizures: No Hx Diabetes: No Hx Gastrointestinal Disorders: No Hx Liver Disease: Yes (Hep C - TX'ED) Hx Genitourinary Disorders: No Hx Sexually Transmitted Disorders: No Hx Renal Disease (ESRD): No Hx Thyroid Disease: No Hx Human Immunodeficiency Virus (HIV): No (negative last 03/06/19 to 03/10/19) Hx Hepatitis C: Yes Hx Depression: No Hx Suicide Attempt: No Hx Bipolar Disorder: No Hx Schizophrenia: No - Patient Surgical History Past Surgical History: Yes Hx Neurologic Surgery: No Hx Cataract Extraction: No Hx Cardiac Surgery: No Hx Lung Surgery: No Hx Breast Surgery: No Hx Breast Biopsy: No Hx Abdominal Surgery: Yes (LT INGUINAL HERNIA) Hx Appendectomy: No Hx Cholecystectomy: No Hx Genitourinary Surgery: No Hx Section: No Hx Orthopedic Surgery: Yes (R CALCANUEUS surgery 10/06/18 at [facility]) Anesthesia Reaction: No - PPD History Previous Implant?: Yes Documented Results: Positive w/o proof Implanted On Prior [facility] Admission?: No Results: CXR(-) 03/2019 PPD to be Administered?: No - Smoking Cessation Smoking history: Current every day smoker Have you smoked in the past 12 months: Yes Aproximately how many cigarettes per day: 10 Cigars Per Day: 0 Hx Chewing Tobacco Use: No Initiated information on smoking cessation: Yes 'Breaking Loose' booklet given: 05/26/19 - Substance & Tx. History Hx Alcohol Use: Yes Hx Substance Use: Yes Substance Use Type: Alcohol, Cocaine, Heroin Hx Substance Use Treatment: Yes (detox, rehab, agonist therapy in past) - Substances abused Heroin Substance route: Injection Frequency: Daily Amount used: 15 BAGS Age of first use: 25 Date of last use: 05/26/19 Alcohol Substance route: Oral Frequency: Daily Amount used: 2 pints of vodka/ 6 packs of beer Age of first use: 16 Date of last use: 05/26/19 Cocaine Substance route: Inhalation Frequency: Daily Amount used: $50 Age of first use: 25 Date of last use: 05/26/19 Alprazolam (Xanax) Substance route: Oral Frequency: 1-2 times per week Amount used: 6MG DAILY Age of first use: 41 Date of last use: 04/27/19 Marijuana/Hashish Substance route: Smoking Frequency: 1-2 times per week Amount used: 20 dollars at a time. Age of first use: 16 Date of last use: 03/23/19 Family Disease History - Family Disease History Family Disease History: Diabetes: Grandparent (dec), Father (dec), Other: Mother (alive and well) Admission Physical Exam S - Vital Signs Vital Signs: Vital Signs - 24 hr 05/26/19 18:49 Temperature 98.2 F Pulse Rate 81 Respiratory 18 Rate Blood Pressure 156/111 H - Physical General Appearance: Yes: Nourished, Mild Distress, Tremorous, Sweating ( Increased facial moisture) HEENTM: Yes: EOMI (Jerking movement of eyes on (R) lateral gaze), Hearing grossly Normal Respiratory: Yes: Lungs Clear (O2 Sat = 98%), Normal Breath Sounds, No Respiratory Distress Neck: Yes: No masses,lesions,Nodules, Supple Breast: Yes: Breast Exam Deferred Cardiology: Yes: Regular Rhythm, Regular Rate, S1, S2 Abdominal: Yes: Non Tender, Flat, Soft, Increased Bowel Sounds Genitourinary: Yes: Within Normal Limits Back: Yes: Normal Inspection Musculoskeletal: Yes: full range of Motion, Gait Steady Extremities: Yes: Normal Capillary Refill, Tremors, Other (Increased swelling of (R) outer malleolus. healed incision line. 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 No increased erythema or induration.) Lymphatic: Yes: Within Normal Limits - Diagnostic (1) Status post ORIF of fracture of ankle Current Visit: Yes Status: Chronic Comment: Patient w/ support ankle brace. (2) Alcohol dependence with uncomplicated withdrawal Current Visit: Yes Status: Acute (3) Opioid dependence with withdrawal Current Visit: Yes Status: Acute (4) Cocaine dependence Current Visit: Yes Status: Chronic Qualifiers: Substance use status: uncomplicated Qualified Code(s): F14.20 - Cocaine dependence, uncomplicated (5) IVDU (intravenous drug user) Current Visit: Yes Status: Chronic (6) Insomnia Current Visit: Yes Status: Chronic Qualifiers: Insomnia type: unspecified Qualified Code(s): G47.00 - Insomnia, unspecified (7) Nicotine dependence Current Visit: Yes Status: Chronic Qualifiers: Nicotine product type: cigarettes Substance use status: in withdrawal Qualified Code(s): F17.213 - Nicotine dependence, cigarettes, with withdrawal (8) History of positive PPD Current Visit: Yes Status: Chronic Comment: Rx'd in past (9) Uncomplicated sedative, hypnotic or anxiolytic withdrawal Current Visit: Yes Status: Acute Cleared for Admission S - Detox or Rehab S Level of Care: Medically Managed Detox Regimen/Protocol: Methadone/Librium Claeared for Rehab Admission: No Breathalyzer - Breathalyzer Breathalyzer: 0.046 Urine Drug Screen - Test Device Lot number: [id number] Expiration date: 12/26/20 - Control Is test valid?: Yes - Results Drug screen NEGATIVE: No Urine drug screen results: BATOOL-Cocaine, FEN-Fentanyl, MOP-Opiates, OXY-Oxycodone , MTD-Methadone, BZO-Benzodiazepines Inpatient Rehab Admission - Rehab Decision to Admit Inpatient rehab admission?: No
[2019-05-26] MEDS ORDERED: METHOCARBAMOL 500 MG TABLET PO PRN (21:09)
[2019-05-26] MEDS ORDERED: chlordiazePOXIDE HCL 25 MG CAPSULE PO PRN (21:09)
[2019-05-26] MEDS ORDERED: ACETAMINOPHEN 325 MG TABLET (FP) PO PRN ×2 (21:09)
[2019-05-26] MEDS ORDERED: MAG HYDROX/AL HYDROX/SIMETH 30 ML UNIT-DOSE CUP PO PRN (21:09)
[2019-05-26] MEDS ORDERED: IBUPROFEN 400 MG TABLET (FP) PO PRN (21:09)
[2019-05-26] MEDS ORDERED: MENTHOL/PHENOL 1 EACH UD MM PRN (21:09)
[2019-05-26] MEDS ORDERED: BISMUTH SUBSALICYLATE 524 MG/30 ML UD PO PRN (21:09)
[2019-05-26] MEDS ORDERED: MAGNESIUM CITRATE 300 ML BOTTLE PO PRN (21:09)
[2019-05-26] MEDS ORDERED: MAGNESIUM HYDROX 2400MG/30ML ORAL SUSPENSION 30 ML CUP PO PRN (21:09)
[2019-05-26] MEDS ORDERED: ONDANSETRON *ODT* 4 MG TABLET SL PRN (21:09)
[2019-05-26] MEDS ORDERED: MELATONIN 5 MG TABLETS PO PRN (21:09)
[2019-05-26] MEDS ORDERED: METHADONE HCL 10 MG TABLET (FOR DETOX USE ONLY) PO ONE (21:15)
[2019-05-26] MEDS ORDERED: cloNIDine HCL 0.1 MG TABLET PO ONE (21:17)
[2019-05-26] MEDS: QUEtiapine FUMARATE 25 MG TABLET (FP) PO PRN (22:00)
[2019-05-26] MEDS: chlordiazePOXIDE HCL 25 MG CAPSULE PO SCH ×4 (22:00→23:23)
[2019-05-26] MEDS: THIAMINE HCL 100 MG TABLET (FP) PO SCH (22:01)
[2019-05-26] MEDS ORDERED: chlordiazePOXIDE HCL 10 MG CAPSULE PO PRN (22:59)
[2019-05-27] MEDS ORDERED: chlordiazePOXIDE HCL 25 MG CAPSULE PO SCH (05:00)
[2019-05-27] MEDS: chlordiazePOXIDE HCL 25 MG CAPSULE PO SCH ×3 (05:50→22:22)
[2019-05-27 09:52] LABS: HEMATOCRIT 45.6 % (35.4-49); HEMOGLOBIN 15.4 GM/dL (11.7-16.9); MCH 28.7 pg (25.7-33.7); MCHC 33.7 g/dl (32.0-35.9); MEAN CELL VOLUME 85.1 fl (80-96); MEAN PLT VOLUME 8.6 fl (7.5-11.1); PLATELET COUNT 294 K/MM3 (134-434); RBC 5.36 M/mm3 (4.00-5.60); RDW 14.1 % (11.9-15.9); WHITE BLOOD COUNT 6.7 K/mm3 (4.0-10.0)
[2019-05-27] MEDS ORDERED: METHADONE HCL 5 MG TABLET (FOR DETOX USE ONLY) PO ONE ×3 (10:00→11:30)
[2019-05-27 10:09] LABS: ALBUMIN 3.4 g/dl (3.4-5.0); BILIRUBIN,TOTAL 0.5 mg/dL (0.2-1); BLOOD UREA NITROGEN 6.9 mg/dL (7-18); CALCIUM 8.4 mg/dL (8.5-10.1); CREATININE 0.6 mg/dL (0.55-1.3); POTASSIUM 3.6 mmol/L (3.5-5.1); TOT PROT 6.6 g/dl (6.4-8.2)
[2019-05-27] MEDS ORDERED: METHADONE HCL 10 MG TABLET (FOR DETOX USE ONLY) PO ONE ×2 (10:33→11:30)
[2019-05-27] MEDS: PRENATAL VITAMINS W/ FOLIC ACID TABLET (FP) PO SCH (11:01)
--- NOTE | 2019-05-27 11:17 | PN ---
S CIWA - CIWA Score Nausea/Vomitin Muscle Tremors: 2 Anxiety: 2 Agitation: 2 Paroxysmal Sweats: 1-Minimal Palms Moist Orientation: 0-Oriented Tacttile Disturbances: 1-Very Mild Itch/Numbness Auditory Disturbances: 1-Very Mild Visual Disturbances: 0-None Headache: 2-Mild CIWA-Ar Total Score: 13 BHS COWS - Scale Resting Pulse: 1= [place] 81-100 Sweatin= Chills/Flushing Restless Observation: 1= Difficult to Sit Still Pupil Size: 1= Pupils >than Normal Bone or Joint Aches: 2= Severe Diffuse Aches Runny Nose/ Eye Tearin= Nasal Congestion GI Upset > 30mins: 2= Nausea/Diarrhea Tremor Observation of Outstretched Hands: 2= Slight Tremor Visible Yawning Observation: 1= 1-2x During Session Anxiety or Irritability: 2=Irritable/Anxious Goose Flesh Skin: 0=Smooth Skin COWS Score: 14 BHS Progress Note (SOAP) Subjective: alert,irritable,anxious,tremor,pain in the body and back Objective: 05/27/19 11:16 Vital Signs Temperature 97.9 F 05/27/19 09:22 Pulse Rate 87 05/27/19 09:22 Respiratory Rate 16 05/27/19 09:22 Blood Pressure 137/94 05/27/19 09:22 O2 Sat by Pulse Oximetry (%) 05/27/19 05/27/19 06:30 06:30 WBC 6.7 RBC 5.36 Hgb 15.4 Hct 45.6 MCV 85.1 MCHC 33.7 RDW 14.1 Plt Count 294 Sodium 141 Potassium 3.6 Chloride 107 Carbon Dioxide 29 Anion Gap 6 L BUN 6.9 L Creatinine 0.6 labs pending Assessment: 05/27/19 11:16 withdrawal symptom Plan: continue detox
[2019-05-27] MEDS: NICOTINE POLACRILEX 2 MG GUM BUC PRN ×2 (17:51→21:35)
[2019-05-27] MEDS: cloNIDine HCL 0.1 MG TABLET PO PRN ×2 (17:52→22:25)
[2019-05-27 21:42] VITALS: TEMP 97.5
[2019-05-27] MEDS: THIAMINE HCL 100 MG TABLET (FP) PO SCH (22:22)
[2019-05-27] MEDS: QUEtiapine FUMARATE 25 MG TABLET (FP) PO PRN (22:25)
[2019-05-28] MEDS ORDERED: chlordiazePOXIDE HCL 10 MG CAPSULE PO PRN
[2019-05-28] MEDS ORDERED: chlordiazePOXIDE HCL 10 MG CAPSULE PO SCH (05:00)
[2019-05-28] MEDS ORDERED: chlordiazePOXIDE 5 MG CAPSULE PO SCH (05:00)
[2019-05-28] MEDS: NICOTINE POLACRILEX 2 MG GUM BUC PRN (05:57)
[2019-05-28 09:26] VITALS: BP 150/99; PULSE 88
[2019-05-28] MEDS ORDERED: METHADONE HCL 10 MG TABLET (FOR DETOX USE ONLY) PO ONE ×2 (10:00)
[2019-05-28] MEDS: PRENATAL VITAMINS W/ FOLIC ACID TABLET (FP) PO SCH (10:07)
[2019-05-28] MEDS ORDERED: cloNIDine HCL 0.1 MG TABLET PO SCH (11:05)
--- NOTE | 2019-05-28 11:55 | DS ---
[facility] Detox Discharge Summary Admission Date: 05/26/19 Discharge Date: 05/28/19 - History Present History: Opioid Dependence Additional Comments: PT DECLINED TO STAY AND CONTINUE WITH TREATMENT FOR PERSONAL REASONS STATING "BECAUSE I WANNA LEAVE". PT DECLINED INITIALLY TO BE SEEN BY THE PROVIDER. 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 PT WAS SPOKEN TO AND ENCOURAGED TO STAY IN TREATMENT BUT STILL DECLINED. ALERT O X 3. AMBULATING WITH STEADY GAIT. DENIES S/H/I. REFERRED TO [facility] FOR PRIMARY CARE. Pertinent Past History: PLEASE SEE DX BELOW - Physical Exam Results Vital Signs: Vital Signs Temperature 97.5 F L 05/28/19 09:26 Pulse Rate 88 05/28/19 09:26 Respiratory Rate 18 05/28/19 09:26 Blood Pressure 150/99 05/28/19 09:26 O2 Sat by Pulse Oximetry (%) Pertinent Admission Physical Exam Findings: WITHDRAWAL SX - Treatment Hospital Course: Discharged Condition Good Patient has Accepted a Rehab Referral to: DECLINED - Medication Discharge Medications: Ambulatory Orders NK [No Known Home Medication] 05/26/19 - AMA Did Patient Leave Against Medical Advice: Yes (AMA)
[2019-05-29] MEDS ORDERED: chlordiazePOXIDE HCL 10 MG CAPSULE PO PRN
[2019-05-29] MEDS ORDERED: chlordiazePOXIDE HCL 10 MG CAPSULE PO SCH ×2 (05:00)
[2019-05-29] MEDS ORDERED: METHADONE HCL 5 MG TABLET (FOR DETOX USE ONLY) PO ONE ×2 (06:00)
[2019-05-30] MEDS ORDERED: chlordiazePOXIDE HCL 10 MG CAPSULE PO ONE ×2 (05:00)
== END 2019-05-28 10:58 | disposition left against medical advice (07) | DRG 770 ==
LOC: YASAS 16:31 → Y6N 21:31
PROVIDERS: ADMIT Surgery; ATTEND Surgery
PROC: HZ2ZZZZ Detoxification Services for Substance Abuse Treatment (ICD-10-PCS; principal; 2019-05-26)
DX: F11.23 Opioid dependence with withdrawal (principal); F10.230 Alcohol dependence with withdrawal, uncomplicated; F13.230 Sedative, hypnotic or anxiolytic dependence with withdrawal, uncomplicated; F14.20 Cocaine dependence, uncomplicated; F17.210 Nicotine dependence, cigarettes, uncomplicated; G47.00 Insomnia, unspecified; R76.11 Nonspecific reaction to tuberculin skin test without active tuberculosis; Z86.19 Personal history of other infectious and parasitic diseases; Z98.890 Other specified postprocedural states
CPT/HCPCS: 36415; 80053; 85027; 86593; J0735